=== PATIENT | male | born 1935 | race Caucasian/White ===

== ENCOUNTER 2021-08-10 14:35 | Observation (INO) ==
[2021-08-10 20:48] LABS: BASOPHILS # (AUTO) 0.1 X10^3/uL (0.0-0.1); EOSINOPHILS # (AUTO) 0.3 x10^3/uL (0.0-0.2); EOSINOPHILS % (AUTO) 5.3 % (0.9-2.9); HEMATOCRIT 26.9 % (42.0-54.0); HEMOGLOBIN 9.5 g/dL (13.5-18.0); LYMPHOCYTES # (AUTO) 1.4 X10^3/uL (1.3-2.9); LYMPHOCYTES % (AUTO) 22.8 % (21.0-51.0); MEAN CORPUSCULAR HEMOGLOBIN 32.7 pg (27.0-34.0); MEAN CORPUSCULAR HGB CONC 35.5 g/dL (33.0-35.0); MEAN CORPUSCULAR VOLUME 92.2 fL (80.0-100.0); MEAN PLATELET VOLUME 6.9 fL (7.4-11.0); MONOCYTES # (AUTO) 0.5 x10^3/uL (0.3-0.8); MONOCYTES % (AUTO) 7.5 % (0.0-13.0); NEUTROPHILS # (AUTO) 3.9 x10^3/uL (2.2-4.8); NEUTROPHILS % (AUTO) 63.4 % (42.0-75.0); RED BLOOD COUNT 2.92 X10^6/uL (4.7-6.0); RED CELL DISTRIBUTION WIDTH 14.9 % (11.6-16.5); WHITE BLOOD COUNT 6.2 X10^3/uL (3.6-10.0)
[2021-08-10 21:07] LABS: ALBUMIN 2.7 g/dL (3.4-5.0); CALCIUM 7.8 mg/dL (8.5-10.1); CARBON DIOXIDE 23.9 mmol/L (21-32); CKMB % 1.6 % (<4); COR CA(FOR HYPOALB) 8.8 mg/dL (8.5-10.1); CREATINE KINASE MB 1.4 ng/mL (0-4.0); CREATININE 2.13 mg/dL (0.70-1.30); TOTAL PROTEIN 6.1 g/dL (6.4-8.2)
[2021-08-10] MEDS: NS 1,000 ML IV 1,000 ML IV SCH (21:45)
--- NOTE | 2021-08-11 05:53 | RAD ---
HISTORYHYPOTENSION, WEAKNESS, FALLS PSH: CATARACT, GB, ORTHOSTUDYCHEST, 1 VIEWCOMPARISONNoneFINDINGSThe trachea is midline. The cardiac silhouette is unremarkable. The lungs are clear without focal infiltrate or effusion. The bony thorax is unremarkable.IMPRESSIONNo acute cardiopulmonary findings .Electronically signed by: Erik Tiwari (Aug 11, 2021 05:52:24)
[2021-08-11 06:31] LABS: BASOPHILS % (AUTO) 0.6 % (0.2-1.0); EOSINOPHILS # (AUTO) 0.3 x10^3/uL (0.0-0.2); EOSINOPHILS % (AUTO) 4.7 % (0.9-2.9); HEMATOCRIT 27.5 % (42.0-54.0); HEMOGLOBIN 9.5 g/dL (13.5-18.0); LYMPHOCYTES # (AUTO) 1.5 X10^3/uL (1.3-2.9); MEAN CORPUSCULAR HEMOGLOBIN 31.6 pg (27.0-34.0); MEAN CORPUSCULAR HGB CONC 34.5 g/dL (33.0-35.0); MEAN CORPUSCULAR VOLUME 91.5 fL (80.0-100.0); MEAN PLATELET VOLUME 7.1 fL (7.4-11.0); MONOCYTES # (AUTO) 0.6 x10^3/uL (0.3-0.8); MONOCYTES % (AUTO) 8.6 % (0.0-13.0); NEUTROPHILS # (AUTO) 4.1 x10^3/uL (2.2-4.8); NEUTROPHILS % (AUTO) 63.1 % (42.0-75.0); RED BLOOD COUNT 3.01 X10^6/uL (4.7-6.0); RED CELL DISTRIBUTION WIDTH 14.5 % (11.6-16.5); WHITE BLOOD COUNT 6.4 X10^3/uL (3.6-10.0)
[2021-08-11 06:48] LABS: ALANINE AMINOTRANSFERASE 20 Units/L (12-78); ALBUMIN 2.6 g/dL (3.4-5.0); ALKALINE PHOSPHATASE 52 Units/L (46-116); ASPARTATE AMINO TRANSFERASE 18 Units/L (15-37); BLOOD UREA NITROGEN 17 mg/dL (7-18); CARBON DIOXIDE 23.9 mmol/L (21-32); CHLORIDE 110 mmol/L (98-107); COR CA(FOR HYPOALB) 9.1 mg/dL (8.5-10.1); CREATININE 1.93 mg/dL (0.70-1.30); SODIUM 143 mmol/L (136-145); eGFR NON BLACK RACES 35 (>60)
--- NOTE | 2021-08-11 09:18 | CT ---
BRAIN W/O CONCLINICAL INDICATION: HYPOTENSION, WEAKNESSTECHNIQUE: Images were obtained through the head per standard CT protocol. Multiplanar reformatted images were generated from the CT dataset. Dose reduction techniques including Automated Exposure Control (AEC) and adjustment of mA and kV were utlized.COMPARISON:NoneFINDINGS:Diffuse patchy and confluent periventricular and subcortical hypoattenuation with associated volume loss . There is no evidence of acute infarction, intracranial hemorrhage, mass or mass effect, or abnormal extra-axial collection . The density of the larger dural venous sinuses is normal. Age-related, ex-vacuo dilatation of the ventricles and sulci . The skull base and calvarium are normal . The included paranasal sinuses and mastoid air cells are predominantly clear .IMPRESSION:1. No acute intracranial abnormality. 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
--- NOTE | 2021-08-11 09:57 | DR.H&P ---
H&P - History & Physical for Day of: H&P Date: 08/10/21 - Chief Complaint Chief Complaint: WEAKNESS, UNSTEADY GAIT, FREQUENT FALLS, CONFUSION, LOW BLOOD PRESSURE - History of Present Illness History of Present Illness: IS A 85 YEAR OLD PATIENT OF OURS. HE PRESENTED TO THE OFFICE ON 08/10 WITH COMPLAINTS OF WEAKNESS, UNSTEADY GAIT, FREQUENT FALLS, CONFUSION, AND LOW BLOOD PRESSURE. PATIENT FAMILY MEMBER REPORTS THAT SYMPTOMS HAVE BEEN PRESENT FOR THE PAST TWO WEEKS AND HAS PROGRESSIVELY GOTTEN WORSE. SHE REPORTS THAT PATIENT HAS BEEN UNABLE TO WALK WITHOUT HIS LEGS GIVING OUT FOR THE PAST DAY. WHILE IN THE OFFICE, HIS BLOOD PRESSURE WAS NOTED TO BE 92/40. EXAMINATION REVEALED MULTIPLE SCABBED WOUNDS AND SCATTERED BRUISING TO UPPER AND LOWER EXTREMITIES. WE ADMITTED PATIENT TO THE HOSPITAL FOR FURTHER EVALUATION AND TREATMENT OF HYPOTENSION, AMS, GENERALIZED WEAKNESS, FREQUENT FALLS. ON ARRIVAL TO THE HOSPITAL, HIS VITALS WERE 98.5-56-20-97%-148/66. LABS WERE OBTAINED. WBC 6.2, RBC 2.92, HGB 9.5, HCT 26.9, SODIUM 139, POTASSIUM 3.1, BUN 19, CREATININE 2.13, GLUCOSE 139, CALCIUM 7.8, TOTAL PROTEIN 6.1, ALBUMIN 2.7. EKG REVEALED: SINUS RHYTHM WITH HR 71. A BRAIN CT WAS OBTAINED AND REVEALED: 1. No acute intracranial abnormality. Chronic microangiopathic changes and ex vacuo dilatation of the ventricles and sulci. CHEST XRAY REVEALED: NO ACUTE CARDIOPULMONARY FINDINGS. HE WAS STARTED ON NORMAL SALINE AT 80 ML/HR. WE WILL REVIEW HIS HOME MEDICATIONS AND RESUME APPROPRIATE. WE WILL HAVE PHYSICAL THERAPY EVALUATE PATIENT. OTHERWISE, WE PLAN TO FOLLOW UP WITH AM LABS AND CONTINUE TO MONITOR. TIME SPENT ON CLINICAL ASSESSMENT, REVIEWING LABS AND IMAGING, DECISION MAKING, AND DOCUMENTATION GREATER THAN 75 MINUTES. - Past Medical History Past Medical History: COPD, CVA, Dyslipidemia, GERD, Hypertension, Hypothyroidism - Past Surgical History Surgical History: Cholecystectomy, Other Additional Surgical History: CATARACTS, BACK SURGERY - Family History Family Medical History: Hypertension - Social History Does patient currently use any type of tobacco product: No Have you used tobacco products in the last 12 months: No Type of Tobacco Use: None Does any household member use tobacco: No Alcohol Use: None Drug Use: None - Medications Home Medications: acetaminophen [From Darvocet-N] Allergy (Verified 01/14/18 10:39) nitroglycerin Allergy (Verified 01/14/18 10:39) propoxyphene [From Darvocet-N] Allergy (Verified 01/14/18 10:39) CONTINUE taking the following medications alprazolam 0.5 mg PO BID 08/10/21 [History] aspirin 81 mg PO DAILY 08/10/21 [History] famotidine 40 mg PO DAILY 08/10/21 [History] furosemide 20 mg PO DAILY PRN 08/10/21 [History] hydrocodone-acetaminophen 1 tab PO TID PRN 08/10/21 [History] levothyroxine 50 mcg PO DAILY 08/10/21 [History] megestrol 40 mg PO BID 08/10/21 [History] metoprolol tartrate 100 mg PO BID 08/10/21 [History] olmesartan 20 mg PO DAILY 08/10/21 [History] rosuvastatin 40 mg PO HS 08/10/21 [History] sertraline 100 mg PO BID 08/10/21 [History] - Review of Systems Constitutional: Weakness Eyes: No Symptoms Reported ENT: No Symptoms Reported Respiratory: No Symptoms Reported Cardiovascular: No Symptoms Reported Gastrointestinal: No Symptoms Reported Genitourinary: No Symptoms Reported Musculoskeletal: No Symptoms Reported Skin: Bruising Neurological: Weakness - Physical Exam Vital Signs: Temperature 98.6 F Pulse Rate [Right] 66 Respiratory Rate 18 Blood Pressure [Left Arm] 147/63 Blood Pressure 182/90 O2 Sat by Pulse Oximetry 100 Oriented: Person Eyes: Normal Ear: Normal Nose: Normal Throat: Normal Respiratory: Diminished Throughout Cardiovascular: Bradycardia : Normal Auscultation: Bowel Sounds: Normal Palpation: Normal Tenderness: Normal Skin: Wound (MULTIPLE SCABBED OVER WOUNDS ), Bruising Musculoskeletal: Instability Psychiatric: Normal Mood Description: Calm Affect: Normal Speech Pattern: Clear - Assessment/Plan (1) Dehydration Status: Acute Plan: ADMIT, NORMAL SALINE AT 80 ML/HR, PT CONSULT, RESUME HOME MEDS APPROPRIATE, MONITOR LABS (2) Hypotension Qualifiers: Hypotension type: unspecified hypotension type Qualified Code(s): I95.9 - Hypotension, unspecified Status: Acute (3) Altered mental status Qualifiers: Altered mental status type: transient alteration of awareness Qualified Code(s): R40.4 - Transient alteration of awareness Status: Acute (4) Generalized weakness Status: Acute (5) Frequent falls Status: Acute - Allergies Allergies/Adverse Reactions: Allergies Allergy/AdvReac Type Severity Reaction Status Date / Time acetaminophen Allergy Verified 01/14/18 10:39 [From Darvocet-N] nitroglycerin Allergy Verified 01/14/18 10:39 propoxyphene Allergy Verified 01/14/18 10:39 [From Darvocet-N]
[2021-08-11] MEDS ORDERED: NORCO 10/325 TAB PO PRN (09:59)
[2021-08-11] MEDS: NS 1,000 ML IV 1,000 ML IV SCH ×2 (10:35→23:23)
[2021-08-11] MEDS: ASPIRIN EC 81 MG PO SCH (10:41)
[2021-08-11] MEDS: MEGACE PO SCH ×2 (10:42→22:32)
[2021-08-11] MEDS: LOVENOX INJ 30 MG SYR SC SCH (10:42)
[2021-08-11] MEDS: PEPCID TAB 20 MG PO SCH (10:42)
[2021-08-11] MEDS: SYNTHROID 50 mcg TAB PO SCH (10:42)
[2021-08-11] MEDS: CRESTOR TAB 10 MG PO SCH (22:32)
[2021-08-11] MEDS: ZOLOFT PO SCH (22:33)
[2021-08-12] MEDS: NS 1,000 ML IV 1,000 ML IV SCH ×3 (00:52→14:20)
[2021-08-12 06:57] LABS: BASOPHILS % (AUTO) 0.4 % (0.2-1.0); EOSINOPHILS # (AUTO) 0.4 x10^3/uL (0.0-0.2); EOSINOPHILS % (AUTO) 5.2 % (0.9-2.9); HEMATOCRIT 27.7 % (42.0-54.0); HEMOGLOBIN 9.9 g/dL (13.5-18.0); LYMPHOCYTES # (AUTO) 1.6 X10^3/uL (1.3-2.9); LYMPHOCYTES % (AUTO) 22.5 % (21.0-51.0); MEAN CORPUSCULAR HEMOGLOBIN 32.9 pg (27.0-34.0); MEAN CORPUSCULAR HGB CONC 35.6 g/dL (33.0-35.0); MEAN CORPUSCULAR VOLUME 92.3 fL (80.0-100.0); MONOCYTES # (AUTO) 0.5 x10^3/uL (0.3-0.8); MONOCYTES % (AUTO) 6.9 % (0.0-13.0); NEUTROPHILS # (AUTO) 4.5 x10^3/uL (2.2-4.8); RED CELL DISTRIBUTION WIDTH 14.4 % (11.6-16.5); WHITE BLOOD COUNT 6.9 X10^3/uL (3.6-10.0)
[2021-08-12 07:36] LABS: ALANINE AMINOTRANSFERASE 19 Units/L (12-78); ALBUMIN 2.7 g/dL (3.4-5.0); ALKALINE PHOSPHATASE 55 Units/L (46-116); ASPARTATE AMINO TRANSFERASE 20 Units/L (15-37); BLOOD UREA NITROGEN 15 mg/dL (7-18); CALCIUM 7.7 mg/dL (8.5-10.1); CARBON DIOXIDE 20.9 mmol/L (21-32); CHLORIDE 110 mmol/L (98-107); COR CA(FOR HYPOALB) 8.7 mg/dL (8.5-10.1); CREATININE 1.59 mg/dL (0.70-1.30); SODIUM 140 mmol/L (136-145); TOTAL PROTEIN 6.1 g/dL (6.4-8.2); eGFR NON BLACK RACES 44 (>60)
[2021-08-12] MEDS: LOVENOX INJ 30 MG SYR SC SCH (09:28)
[2021-08-12] MEDS: ASPIRIN EC 81 MG PO SCH (09:28)
[2021-08-12] MEDS: SYNTHROID 50 mcg TAB PO SCH (09:29)
[2021-08-12] MEDS: MEGACE PO SCH ×2 (09:29→21:23)
[2021-08-12] MEDS: PEPCID TAB 20 MG PO SCH (09:29)
--- NOTE | 2021-08-12 15:49 | PCM.PROG ---
Progress Note - Progress Note for Day of Date of Exam: 08/12/21 - Subjective Subjective: IS CURRENTLY BEING TREATED FOR DEHYDRATION, HYPOTENSION, AMS, GENERALIZED WEAKNESS, AND FREQUENT FALLS. TODAY, HE IS ALERT, LYING IN BED ON MORNING ROUNDS. HE ANSWERS QUESTIONS APPROPRIATELY AND IS ABLE TO FOLLOW SIMPLE COMMANDS. STAFF REPORTS THAT HE DOES HAVE AN UNSTEADY GAIT AND REQUIRES ASSISTANCE WITH AMBULATION. ON EXAMINATION, HEART IS REGULAR IN RATE AND RHYTHM. BILATERAL LUNGS NOTED WITH DIMINISHED LUNG SOUNDS THROUGHOUT. ABDOMEN IS ROUND, SOFT, AND NON-TENDER WITH NORMAL BOWEL SOUNDS NOTED IN ALL QUADRANTS. SCATTERED BRUISING IS NOTED. HIS VITALS THIS MORNING ARE: 98.2-70-20-99%-188/77. LABS WERE OBTAINED. ABNORMAL LAB VALUES INCLUDE THE FOLLOWING: RBC 3.00, HGB 9.9, HCT 27.7, POTASSIUM 3.3, CHORIDE 110, CARBON DIOXIDE 20.9, CREATININE 1.59, CALCIUM 7.7, TOTAL PROTEIN 6.1, ALBUMIN 2.7. HE IS CURRENTLY RECEIVING NORMAL SALINE AT 80 ML/HR AND HIS HOME MEDICATIONS WERE RESUMED. PHYSICAL THERAPY IS WORKING WITH PATIENT. WE WILL CONTINUE WITH CURRENT PLAN OF CARE TODAY. OTHERWISE, WE WILL FOLLOW UP WITH AM LABS AND CONTINUE TO MONITOR. TIME SPENT ON CLINICAL SESSMENT, REVIEWING LABS AND IMAGING, DECISION MAKING, AND DOCUMENTATION WAS GREATER THAN 45 MINUTES. - Past Medical Family Social History Past Med/Fam/Surg Hx: No changes since H&P Allergies: Allergies acetaminophen [From Darvocet-N] Allergy (Verified 01/14/18 10:39) nitroglycerin Allergy (Verified 01/14/18 10:39) propoxyphene [From Darvocet-N] Allergy (Verified 01/14/18 10:39) - Review of Systems ROS: No change since H&P - Vital Signs and I&O's Vital Signs: Temperature 98.2 F Pulse Rate [Left Brachial] 76 Pulse Rate [Right] 67 Respiratory Rate 20 Blood Pressure [Left Arm] 123/58 Blood Pressure 182/90 O2 Sat by Pulse Oximetry 98 Intake and Output: Intake & Output 08/10/21 08/11/21 08/12/21 08/13/21 11:59 11:59 11:59 11:59 Intake Total 795 / 795 2540 / 2540 Output Total 300 / 300 2400 / 2400 Balance 495 / 495 140 / 140 - Physical Exam Oriented: Person Eyes: Normal Ear: Normal Nose: Normal Throat: Normal Respiratory: Generalized, Diminished Cardiovascular: Bradycardia : Normal Auscultation: Bowel Sounds: Normal Palpation: Normal Tenderness: Normal Skin: Wound (MULTIPLE SCABBED OVER WOUNDS ), Bruising Musculoskeletal: Instability Psychiatric: Normal Mood Description: Calm Affect: Normal Speech Pattern: Clear - Laboratory and Diagnostics Result Diagrams: 08/12/21 05:51 08/12/21 05:51 Labs: Laboratory WBC 6.9 X10^3/uL (3.6-10.0) 08/12/21 05:51 RBC 3.00 X10^6/uL (4.7-6.0) L 08/12/21 05:51 Hgb 9.9 g/dL (13.5-18.0) L 08/12/21 05:51 Hct 27.7 % (42.0-54.0) L 08/12/21 05:51 MCV 92.3 fL (80.0-100.0) 08/12/21 05:51 MCH 32.9 pg (27.0-34.0) 08/12/21 05:51 MCHC 35.6 g/dL (33.0-35.0) H 08/12/21 05:51 RDW 14.4 % (11.6-16.5) 08/12/21 05:51 Plt Count 249 X10^3/uL (150.0-450.0) 08/12/21 05:51 MPV 7.0 fL (7.4-11.0) L 08/12/21 05:51 Neut % (Auto) 65.0 % (42.0-75.0) 08/12/21 05:51 Lymph % (Auto) 22.5 % (21.0-51.0) 08/12/21 05:51 Dale % (Auto) 6.9 % (0.0-13.0) 08/12/21 05:51 Eos % (Auto) 5.2 % (0.9-2.9) H 08/12/21 05:51 Baso % (Auto) 0.4 % (0.2-1.0) 08/12/21 05:51 Neut # (Auto) 4.5 x10^3/uL (2.2-4.8) 08/12/21 05:51 Lymph # (Auto) 1.6 X10^3/uL (1.3-2.9) 08/12/21 05:51 Dale # (Auto) 0.5 x10^3/uL (0.3-0.8) 08/12/21 05:51 Eos # (Auto) 0.4 x10^3/uL (0.0-0.2) H 08/12/21 05:51 Baso # (Auto) 0.0 X10^3/uL (0.0-0.1) 08/12/21 05:51 Absolute Nucleated RBC 0.0 /100WBC 08/12/21 05:51 Sodium 140 mmol/L (136-145) 08/12/21 05:51 Corrected Sodium TNP 08/12/21 05:51 Potassium 3.3 mmol/L (3.5-5.1) L 08/12/21 05:51 Chloride 110 mmol/L (98-107) H 08/12/21 05:51 Carbon Dioxide 20.9 mmol/L (21-32) L 08/12/21 05:51 BUN 15 mg/dL (7-18) 08/12/21 05:51 Creatinine 1.59 mg/dL (0.70-1.30) H 08/12/21 05:51 Est GFR (MDRD) Af Amer 53 (>60) L 08/12/21 05:51 Est GFR (MDRD) Non-Af 44 (>60) L 08/12/21 05:51 Glucose 88 mg/dL (65-99) 08/12/21 05:51 Calcium 7.7 mg/dL (8.5-10.1) L 08/12/21 05:51 Corrected Calcium 8.7 mg/dL (8.5-10.1) 08/12/21 05:51 Total Bilirubin 0.30 mg/dL (0.2-1.0) 08/12/21 05:51 AST 20 Units/L (15-37) 08/12/21 05:51 ALT 19 Units/L (12-78) 08/12/21 05:51 Alkaline Phosphatase 55 Units/L (46-116) 08/12/21 05:51 Creatine Kinase 89 Units/L (39-308) 08/10/21 20:30 CK-MB (CK-2) 1.4 ng/mL (0-4.0) 08/10/21 20:30 CK/CKMB % Calc 1.6 % (<4) 08/10/21 20:30 Troponin I High Sens 12.4 ng/L (4.0-60.0) 08/10/21 20:30 Total Protein 6.1 g/dL (6.4-8.2) L 08/12/21 05:51 Albumin 2.7 g/dL (3.4-5.0) L 08/12/21 05:51 Globulin 3.4 g/dL (2.5-4.5) 08/12/21 05:51 Albumin/Globulin Ratio 0.8 Ratio (1.1-2.1) L 08/12/21 05:51 SARS CoV-2 RNA Rapid KADIE Negative (NEGATIVE) 08/10/21 15:33 - Plan (1) Dehydration Status: Acute Plan: NORMAL SALINE AT 80 ML/HR, PT CONSULT, RESUME HOME MEDS APPROPRIATE, MONITOR LABS (2) Hypotension Status: Acute Qualifiers: Hypotension type: unspecified hypotension type Qualified Code(s): I95.9 - Hypotension, unspecified (3) Altered mental status Status: Acute Qualifiers: Altered mental status type: transient alteration of awareness Qualified Code(s): R40.4 - Transient alteration of awareness (4) Generalized weakness Status: Acute (5) Frequent falls Status: Acute
[2021-08-12] MEDS: CRESTOR TAB 10 MG PO SCH (21:23)
[2021-08-12] MEDS: KLOR-CON PO PRN (21:24)
[2021-08-12] MEDS: ZOLOFT PO SCH (21:24)
[2021-08-13] MEDS: NS 1,000 ML IV 1,000 ML IV SCH ×3 (02:38→14:40)
[2021-08-13 06:47] LABS: BASOPHILS % (AUTO) 0.3 % (0.2-1.0); EOSINOPHILS # (AUTO) 0.4 x10^3/uL (0.0-0.2); EOSINOPHILS % (AUTO) 5.1 % (0.9-2.9); HEMOGLOBIN 9.5 g/dL (13.5-18.0); LYMPHOCYTES # (AUTO) 1.3 X10^3/uL (1.3-2.9); LYMPHOCYTES % (AUTO) 17.4 % (21.0-51.0); MEAN CORPUSCULAR HEMOGLOBIN 32.6 pg (27.0-34.0); MEAN CORPUSCULAR HGB CONC 35.3 g/dL (33.0-35.0); MEAN CORPUSCULAR VOLUME 92.6 fL (80.0-100.0); MONOCYTES # (AUTO) 0.4 x10^3/uL (0.3-0.8); MONOCYTES % (AUTO) 5.4 % (0.0-13.0); NEUTROPHILS # (AUTO) 5.2 x10^3/uL (2.2-4.8); NEUTROPHILS % (AUTO) 71.8 % (42.0-75.0); RED BLOOD COUNT 2.91 X10^6/uL (4.7-6.0); RED CELL DISTRIBUTION WIDTH 14.8 % (11.6-16.5); WHITE BLOOD COUNT 7.3 X10^3/uL (3.6-10.0)
[2021-08-13 07:10] LABS: ALANINE AMINOTRANSFERASE 17 Units/L (12-78); ALBUMIN 2.6 g/dL (3.4-5.0); ALKALINE PHOSPHATASE 54 Units/L (46-116); ASPARTATE AMINO TRANSFERASE 18 Units/L (15-37); BLOOD UREA NITROGEN 12 mg/dL (7-18); CALCIUM 7.6 mg/dL (8.5-10.1); CARBON DIOXIDE 19.7 mmol/L (21-32); CHLORIDE 110 mmol/L (98-107); COR CA(FOR HYPOALB) 8.7 mg/dL (8.5-10.1); COR NA(FOR HYPERGLY) 141 mmol/L (136-145); SODIUM 141 mmol/L (136-145); TOTAL PROTEIN 5.8 g/dL (6.4-8.2); eGFR NON BLACK RACES 51 (>60)
[2021-08-13] MEDS: LOVENOX INJ 30 MG SYR SC SCH (09:02)
[2021-08-13] MEDS: ASPIRIN EC 81 MG PO SCH (09:02)
[2021-08-13] MEDS: PEPCID TAB 20 MG PO SCH (09:03)
[2021-08-13] MEDS: MEGACE PO SCH ×2 (09:03→21:01)
[2021-08-13] MEDS: SYNTHROID 50 mcg TAB PO SCH (09:03)
[2021-08-13] MEDS: KLOR-CON PO PRN (09:03)
[2021-08-13] MEDS ORDERED: KLOR-CON PO PRN (09:39)
[2021-08-13] MEDS ORDERED: K-RIDER 10 MEQ/NS 100 ML 10 MEQ/100 ML BAG IV PRN (09:39)
[2021-08-13] MEDS ORDERED: POTASSIUM CHL 40 MEQ/NS 0.45% 500 ML IV PRN (09:39)
[2021-08-13] MEDS ORDERED: MICRO K EXTEN CAP 10 MEQ PO PRN (09:39)
[2021-08-13] MEDS ORDERED: K-DUR TAB 20 MEQ PO PRN (09:39)
[2021-08-13] MEDS ORDERED: POTASSIUM CHLORIDE LIQ 20 MEQ UDC PO PRN (09:39)
[2021-08-13] MEDS ORDERED: POTASSIUM CHL 60 MEQ/NS 0.45% 500 ML IV PRN (09:39)
--- NOTE | 2021-08-13 09:39 | PCM.PROG ---
Progress Note - Progress Note for Day of Date of Exam: 08/13/21 - Subjective Subjective: IS CURRENTLY BEING TREATED FOR DEHYDRATION, HYPOTENSION, AMS, GENERALIZED WEAKNESS, AND FREQUENT FALLS. TODAY, HE IS ALERT, LYING IN BED ON MORNING ROUNDS. HE ANSWERS QUESTIONS APPROPRIATELY AND IS ABLE TO FOLLOW SIMPLE COMMANDS. HE CONTINUES WITH WEAKNESS AND DIZZINESS AT TIMES. STAFF REPORTS THAT HE DOES HAVE AN UNSTEADY GAIT AND REQUIRES ASSISTANCE WITH AMBULATION. ON EXAMINATION, HEART IS REGULAR IN RATE AND RHYTHM. BILATERAL LUNGS NOTED WITH DIMINISHED LUNG SOUNDS THROUGHOUT. ABDOMEN IS ROUND, SOFT, AND NON- TENDER WITH NORMAL BOWEL SOUNDS NOTED IN ALL QUADRANTS. SCATTERED BRUISING IS NOTED. HIS VITALS THIS MORNING ARE: 98.6-72-18-98%-116/68. LABS WERE OBTAINED. ABNORMAL LAB VALUES INCLUDE THE FOLLOWING: RBC 2.91, HGB 9.5, HCT 27.0, POTASSIUM 3.3, CHLORIDE 110, CARBON DIOXIDE 19.7, CREATININE 1.40, GLUCOSE 117, CALCIUM 7.6, TOTAL PROTEIN 5.8, ALBUMIN 2.6. HE IS CURRENTLY RECEIVING NORMAL SALINE AT 80 ML/HR AND HIS HOME MEDICATIONS WERE RESUMED. PHYSICAL THERAPY IS WORKING WITH PATIENT. WE WILL CONTINUE WITH CURRENT PLAN OF CARE TODAY. OTHERWISE, WE WILL FOLLOW UP WITH AM LABS AND CONTINUE TO MONITOR. TIME SPENT ON CLINICAL ASSESSMENT, REVIEWING LABS AND IMAGING, DECISION MAKING, AND DOCUMENTATION WAS GREATER THAN 45 MINUTES. - Past Medical Family Social History Past Med/Fam/Surg Hx: No changes since H&P Allergies: Allergies acetaminophen [From Darvocet-N] Allergy (Verified 01/14/18 10:39) nitroglycerin Allergy (Verified 01/14/18 10:39) propoxyphene [From Darvocet-N] Allergy (Verified 01/14/18 10:39) - Review of Systems ROS: No change since H&P - Vital Signs and I&O's Vital Signs: Temperature 98.6 F Pulse Rate [Left Brachial] 72 Pulse Rate [Right] 67 Respiratory Rate 18 Blood Pressure [Left Arm] 116/68 Blood Pressure 182/90 O2 Sat by Pulse Oximetry 98 Intake and Output: Intake & Output 08/10/21 08/11/21 08/12/21 08/13/21 11:59 11:59 11:59 11:59 Intake Total 795 / 795 2540 / 2540 3480 / 3480 Output Total 300 / 300 2400 / 2400 2225 / 2225 Balance 495 / 495 140 / 140 1255 / 1255 - Physical Exam Oriented: Person Eyes: Normal Ear: Normal Nose: Normal Throat: Normal Respiratory: Generalized, Diminished Cardiovascular: Bradycardia : Normal Auscultation: Bowel Sounds: Normal Palpation: Normal Tenderness: Normal Skin: Wound (MULTIPLE SCABBED OVER WOUNDS ), Bruising Musculoskeletal: Instability Psychiatric: Normal Mood Description: Calm Affect: Normal Speech Pattern: Clear - Laboratory and Diagnostics Result Diagrams: 08/13/21 05:32 08/13/21 05:32 Labs: Laboratory WBC 7.3 X10^3/uL (3.6-10.0) 08/13/21 05:32 RBC 2.91 X10^6/uL (4.7-6.0) L 08/13/21 05:32 Hgb 9.5 g/dL (13.5-18.0) L 08/13/21 05:32 Hct 27.0 % (42.0-54.0) L 08/13/21 05:32 MCV 92.6 fL (80.0-100.0) 08/13/21 05:32 MCH 32.6 pg (27.0-34.0) 08/13/21 05:32 MCHC 35.3 g/dL (33.0-35.0) H 08/13/21 05:32 RDW 14.8 % (11.6-16.5) 08/13/21 05:32 Plt Count 232 X10^3/uL (150.0-450.0) 08/13/21 05:32 MPV 7.0 fL (7.4-11.0) L 08/13/21 05:32 Neut % (Auto) 71.8 % (42.0-75.0) 08/13/21 05:32 Lymph % (Auto) 17.4 % (21.0-51.0) L 08/13/21 05:32 [place] % (Auto) 5.4 % (0.0-13.0) 08/13/21 05:32 Eos % (Auto) 5.1 % (0.9-2.9) H 08/13/21 05:32 Baso % (Auto) 0.3 % (0.2-1.0) 08/13/21 05:32 Neut # (Auto) 5.2 x10^3/uL (2.2-4.8) H 08/13/21 05:32 Lymph # (Auto) 1.3 X10^3/uL (1.3-2.9) 08/13/21 05:32 [place] # (Auto) 0.4 x10^3/uL (0.3-0.8) 08/13/21 05:32 Eos # (Auto) 0.4 x10^3/uL (0.0-0.2) H 08/13/21 05:32 Baso # (Auto) 0.0 X10^3/uL (0.0-0.1) 08/13/21 05:32 Absolute Nucleated RBC 0.0 /100WBC 08/13/21 05:32 Sodium 141 mmol/L (136-145) 08/13/21 05:32 Corrected Sodium 141 mmol/L (136-145) 08/13/21 05:32 Potassium 3.3 mmol/L (3.5-5.1) L 08/13/21 05:32 Chloride 110 mmol/L (98-107) H 08/13/21 05:32 Carbon Dioxide 19.7 mmol/L (21-32) L 08/13/21 05:32 BUN 12 mg/dL (7-18) 08/13/21 05:32 Creatinine 1.40 mg/dL (0.70-1.30) H 08/13/21 05:32 Est GFR (MDRD) Af Amer > 60 (>60) 08/13/21 05:32 Est GFR (MDRD) Non-Af 51 (>60) L 08/13/21 05:32 Glucose 117 mg/dL (65-99) H 08/13/21 05:32 Calcium 7.6 mg/dL (8.5-10.1) L 08/13/21 05:32 Corrected Calcium 8.7 mg/dL (8.5-10.1) 08/13/21 05:32 Magnesium 2.1 mg/dL (1.7-2.9) 08/13/21 05:32 Total Bilirubin 0.30 mg/dL (0.2-1.0) 08/13/21 05:32 AST 18 Units/L (15-37) 08/13/21 05:32 ALT 17 Units/L (12-78) 08/13/21 05:32 Alkaline Phosphatase 54 Units/L (46-116) 08/13/21 05:32 Creatine Kinase 89 Units/L (39-308) 08/10/21 20:30 CK-MB (CK-2) 1.4 ng/mL (0-4.0) 08/10/21 20:30 CK/CKMB % Calc 1.6 % (<4) 08/10/21 20:30 Troponin I High Sens 12.4 ng/L (4.0-60.0) 08/10/21 20:30 Total Protein 5.8 g/dL (6.4-8.2) L 08/13/21 05:32 Albumin 2.6 g/dL (3.4-5.0) L 08/13/21 05:32 Globulin 3.2 g/dL (2.5-4.5) 08/13/21 05:32 Albumin/Globulin Ratio 0.8 Ratio (1.1-2.1) L 08/13/21 05:32 SARS CoV-2 RNA Rapid KADIE Negative (NEGATIVE) 08/10/21 15:33 - Plan (1) Dehydration Status: Acute Plan: NORMAL SALINE AT 80 ML/HR, PT CONSULT, RESUME HOME MEDS APPROPRIATE, MONITOR LABS (2) Hypotension Status: Acute Qualifiers: Hypotension type: unspecified hypotension type Qualified Code(s): I95.9 - Hypotension, unspecified (3) Altered mental status Status: Acute Qualifiers: Altered mental status type: transient alteration of awareness Qualified Code(s): R40.4 - Transient alteration of awareness (4) Hypokalemia Status: Acute (5) Anemia Status: Acute Qualifiers: Anemia type: unspecified type Qualified Code(s): D64.9 - Anemia, unspecified (6) Generalized weakness Status: Acute (7) Frequent falls Status: Acute
[2021-08-13] MEDS: CRESTOR TAB 10 MG PO SCH (21:00)
[2021-08-13] MEDS: ZOLOFT PO SCH (21:01)
[2021-08-14] MEDS: NS 1,000 ML IV 1,000 ML IV SCH (03:17)
[2021-08-14 06:30] LABS: BASOPHILS % (AUTO) 0.5 % (0.2-1.0); EOSINOPHILS # (AUTO) 0.5 x10^3/uL (0.0-0.2); EOSINOPHILS % (AUTO) 6.2 % (0.9-2.9); HEMATOCRIT 27.8 % (42.0-54.0); HEMOGLOBIN 9.7 g/dL (13.5-18.0); LYMPHOCYTES # (AUTO) 1.6 X10^3/uL (1.3-2.9); LYMPHOCYTES % (AUTO) 20.4 % (21.0-51.0); MEAN CORPUSCULAR HEMOGLOBIN 32.1 pg (27.0-34.0); MEAN CORPUSCULAR HGB CONC 34.8 g/dL (33.0-35.0); MEAN CORPUSCULAR VOLUME 92.4 fL (80.0-100.0); MONOCYTES # (AUTO) 0.4 x10^3/uL (0.3-0.8); MONOCYTES % (AUTO) 5.3 % (0.0-13.0); NEUTROPHILS # (AUTO) 5.4 x10^3/uL (2.2-4.8); NEUTROPHILS % (AUTO) 67.6 % (42.0-75.0); RED BLOOD COUNT 3.01 X10^6/uL (4.7-6.0); RED CELL DISTRIBUTION WIDTH 14.6 % (11.6-16.5)
[2021-08-14 06:50] LABS: ALANINE AMINOTRANSFERASE 18 Units/L (12-78); ALBUMIN 2.8 g/dL (3.4-5.0); ALKALINE PHOSPHATASE 53 Units/L (46-116); ASPARTATE AMINO TRANSFERASE 21 Units/L (15-37); BLOOD UREA NITROGEN 10 mg/dL (7-18); CARBON DIOXIDE 18.7 mmol/L (21-32); CHLORIDE 110 mmol/L (98-107); CREATININE 1.31 mg/dL (0.70-1.30); SODIUM 139 mmol/L (136-145); TOTAL PROTEIN 6.2 g/dL (6.4-8.2); eGFR NON BLACK RACES 55 (>60)
[2021-08-14] MEDS: ASPIRIN EC 81 MG PO SCH (08:56)
[2021-08-14] MEDS: MEGACE PO SCH (08:56)
[2021-08-14] MEDS: SYNTHROID 50 mcg TAB PO SCH (08:56)
[2021-08-14] MEDS: LOVENOX INJ 30 MG SYR SC SCH (08:57)
[2021-08-14] MEDS: PEPCID TAB 20 MG PO SCH (08:57)
[2021-08-14 12:24] VITALS: BP 154/67
== END 2021-08-14 13:30 | disposition home or self-care (01) ==
LOC: MED/SURG
PROVIDERS: ADMIT Internal Medicine; ATTEND Internal Medicine
DX: E87.6 Hypokalemia; K21.9 Gastro-esophageal reflux disease without esophagitis; Z20.822 Contact with and (suspected) exposure to COVID-19; D64.89 Other specified anemias; R26.81 Unsteadiness on feet; E78.2 Mixed hyperlipidemia; R29.6 Repeated falls; I95.89 Other hypotension; R53.1 Weakness; R94.31 Abnormal electrocardiogram [ECG] [EKG]; R94.4 Abnormal results of kidney function studies; E03.8 Other specified hypothyroidism; E86.0 Dehydration; R41.82 Altered mental status, unspecified

== ENCOUNTER 2021-09-11 17:10 | Observation (INO) ==
[2021-09-11 19:54] LABS: HEMOGLOBIN 9.6 g/dL (13.5-18.0); WHITE BLOOD COUNT 6.3 X10^3/uL (3.6-10.0)
[2021-09-11 19:59] LABS: BASOPHILS # (AUTO) 0.1 X10^3/uL (0.0-0.1); BASOPHILS % (AUTO) 0.8 % (0.2-1.0); EOSINOPHILS # (AUTO) 0.6 x10^3/uL (0.0-0.2); EOSINOPHILS % (AUTO) 9.3 % (0.9-2.9); HEMATOCRIT 27.7 % (42.0-54.0); LYMPHOCYTES # (AUTO) 1.2 X10^3/uL (1.3-2.9); LYMPHOCYTES % (AUTO) 19.8 % (21.0-51.0); MEAN CORPUSCULAR HEMOGLOBIN 32.7 pg (27.0-34.0); MEAN CORPUSCULAR HGB CONC 34.6 g/dL (33.0-35.0); MEAN CORPUSCULAR VOLUME 94.4 fL (80.0-100.0); MEAN PLATELET VOLUME 6.8 fL (7.4-11.0); MONOCYTES # (AUTO) 0.4 x10^3/uL (0.3-0.8); MONOCYTES % (AUTO) 5.8 % (0.0-13.0); NEUTROPHILS % (AUTO) 64.3 % (42.0-75.0); RED BLOOD COUNT 2.94 X10^6/uL (4.7-6.0); RED CELL DISTRIBUTION WIDTH 14.7 % (11.6-16.5)
[2021-09-11 20:03] LABS: ALANINE AMINOTRANSFERASE 20 Units/L (12-78); ALBUMIN 3.1 g/dL (3.4-5.0); ALKALINE PHOSPHATASE 79 Units/L (46-116); ASPARTATE AMINO TRANSFERASE 21 Units/L (15-37); BLOOD UREA NITROGEN 18 mg/dL (7-18); CALCIUM 8.1 mg/dL (8.5-10.1); CARBON DIOXIDE 21.4 mmol/L (21-32); CHLORIDE 104 mmol/L (98-107); COR CA(FOR HYPOALB) 8.8 mg/dL (8.5-10.1); CREATININE 2.07 mg/dL (0.70-1.30); SODIUM 136 mmol/L (136-145); TOTAL PROTEIN 6.8 g/dL (6.4-8.2); eGFR NON BLACK RACES 33 (>60)
[2021-09-11 20:25] LABS: CKMB % 1.1 % (<4); CREATINE KINASE MB 0.8 ng/mL (0-4.0)
[2021-09-11] MEDS: NS 1,000 ML IV 1,000 ML IV SCH (21:30)
[2021-09-12 01:00] VITALS: BMI 19.7
[2021-09-12 02:05] LABS: CKMB % 1.6 % (<4)
[2021-09-12 03:36] LABS: BILIRUBIN,URINE NEGATIVE (NEGATIVE); BLOOD/HEMOGLOBIN,URINE NEGATIVE (NEGATIVE); GLUCOSE, URINE NEGATIVE (NEGATIVE); KETONES,URINE NEGATIVE (NEGATIVE); LEUKOCYTE ESTERASE ,URINE NEGATIVE (NEGATIVE); NITRITES,URINE NEGATIVE (NEGATIVE); PROTEIN,URINE NEGATIVE (NEGATIVE); UROBILINOGEN,URINE NORMAL (NORMAL)
[2021-09-12 03:41] LABS: APPEARANCE,URINE CLEAR (CLEAR); COLOR,URINE STRAW (YELLOW)
--- NOTE | 2021-09-12 05:59 | RAD ---
HISTORYSyncopeSTUDYChest AP intewdanSEFAYYAQIL06/25/2022FINDINGSHear t size is normal. Ashly are normal. Aorta is calcified. Lung mckee are clear. No pleural effusions or pneumothoraces identified. Bony thorax is unremarkable.IMPRESSIONNo significant abnormality identifiedElectronically signed by: HANANE CAGE (Sep 12, 2021 05:59:14)
[2021-09-12 06:25] LABS: BASOPHILS % (AUTO) 0.5 % (0.2-1.0); EOSINOPHILS # (AUTO) 0.5 x10^3/uL (0.0-0.2); EOSINOPHILS % (AUTO) 7.4 % (0.9-2.9); HEMATOCRIT 25.9 % (42.0-54.0); HEMOGLOBIN 9.3 g/dL (13.5-18.0); LYMPHOCYTES # (AUTO) 1.3 X10^3/uL (1.3-2.9); LYMPHOCYTES % (AUTO) 20.2 % (21.0-51.0); MEAN CORPUSCULAR HEMOGLOBIN 33.3 pg (27.0-34.0); MEAN CORPUSCULAR HGB CONC 35.8 g/dL (33.0-35.0); MEAN PLATELET VOLUME 6.6 fL (7.4-11.0); MONOCYTES # (AUTO) 0.4 x10^3/uL (0.3-0.8); MONOCYTES % (AUTO) 6.2 % (0.0-13.0); NEUTROPHILS # (AUTO) 4.3 x10^3/uL (2.2-4.8); NEUTROPHILS % (AUTO) 65.7 % (42.0-75.0); RED BLOOD COUNT 2.79 X10^6/uL (4.7-6.0); RED CELL DISTRIBUTION WIDTH 14.6 % (11.6-16.5); WHITE BLOOD COUNT 6.6 X10^3/uL (3.6-10.0)
[2021-09-12 06:48] LABS: ALANINE AMINOTRANSFERASE 18 Units/L (12-78); ALBUMIN 2.7 g/dL (3.4-5.0); ALKALINE PHOSPHATASE 60 Units/L (46-116); ASPARTATE AMINO TRANSFERASE 19 Units/L (15-37); BLOOD UREA NITROGEN 16 mg/dL (7-18); CARBON DIOXIDE 22.8 mmol/L (21-32); CHLORIDE 108 mmol/L (98-107); CKMB % 1.6 % (<4); CREATINE KINASE 62 Units/L (39-308); CREATINE KINASE MB < 1.0 ng/mL (0-4.0); CREATININE 1.81 mg/dL (0.70-1.30); SODIUM 139 mmol/L (136-145); eGFR NON BLACK RACES 38 (>60)
--- NOTE | 2021-09-12 10:15 | CT ---
HISTORYSyncopeSTUDYCT brain without contrastCOMPARISONFebruary 2021TECHNIQUEMultiple axial images of the brain were obtained from the skull base to the vertex [without] administration of IV contrast.Dose reduction techniques including Automated Exposure Control (AEC) and adjustment of mA and kV were utlized.FINDINGS[No acute intraparenchymal hemorrhage or mass can be identified.] [No extra-axial fluid collections are seen.] [No alteration in the attenuation of the brain parenchyma can be identified to suggest acute or subacute ischemic change.] [Stable small vessel ischemic changes are noted age-appropriate atrophic changes are noted. The ventricular system is stable. [The extracranial structures are grossly unremarkable.]IMPRESSION[No acute intracranial process can be identified.]Electronically signed by: PHILLIP BLISS (Sep 12, 2021 10:14:16)
--- NOTE | 2021-09-12 11:12 | DR.H&P ---
H&P - History & Physical for Day of: H&P Date: 09/11/21 - Chief Complaint Chief Complaint: SYNCOPE, UNSTEADY GAIT, WEAKNESS - History of Present Illness History of Present Illness: IS A 85 YEAR OLD PATIENT OF OURS. PATIENT PRESENTED TO THE OFFICE WITH COMPLAINTS OF SEVERAL SYNCOPAL EPISODES OVER THE PAST 2-3 MONTHS. PATIENT REPORTS THAT HE WOULD OFTEN LOSE CONSCIOUSNESS FOR A BRIEF PERIOD. HE REPORTS THAT THIS HAS HAPPENED OFTEN 2-3 TIMES IN A DAY. HE ADMITS TO FALLING THREE TIMES ON THE DAY OF HIS VISIT. HE LIVES AT HOME ALONE AND APPARENTLY HAS NEIGHBORS AND FRIENDS THAT CHECK ON HIM OFTEN. FAMILY REPORTS THAT HE HAS AN UNSTEADY GAIT. HIS PMH INCLUDES: CAD, HYPERLIPIDEMIA, HTN, CARDIAC STENT X 2, COPD, GERD, HYPOTHYROIDISM, CHOLECYSTECTOMY, CATARACT SURGERY, BACK SURGERY. UPON EXAMINATION IN THE OFFICE, PATIENT IS NOTED TO HAVE AN ATAXIC GAIT AND GENERALIZED WEAKNESS. HE WAS ADMITTED TO THE HOSPTIAL FOR FURTHER EVALUATION AND TREATMENT OF SYNCOPE, R/O CVA. ON ARRIVAL, VITALS WERE 98.2-91-20-157/67. LABS WERE OBTAINED. WBC 6.3, RBC 2.94, HGB 9.6, HCT 27.7, SODIUM 136, POTASSIUM 3.9, BUN 18, CREATININE 2.07, CALCIUM 8.1, GLUCOSE 95, AST 21, ALT 20, ALK PHOS 79, ALBUMIN 3.1. CARDIAC ENZYMES WITHIN NORMAL LIMITS. URINALYSIS WAS OBTAINED AND IS UNREMARKABLE. COVID-19 NEGATIVE. A CHEST XRAY WAS OBTAINED AND REVEALED: NO SIGNIFICANT ABNORMALITY IDENTIFIED. EKG REVEALED: SINUS RHYTHM WITH HR 78. WE OBTAINED A BRAIN CT WITHOUT CONTRAST. IT REVEALED: No acute intraparenchymal hemorrhage or mass can be identified. No extra-axial fluid collections are seen. No alteration in the attenuation of the brain paren chyma can be identified to suggest acute or subacute ischemic change. Stable small vessel ischemic changes are noted age-appropriate atrophic changes are noted. The ventricular system is stable. The extracranial structures are grossly unremarkable. HE WAS STARTED ON NORMAL SALINE AT 75 ML/HR. WE WILL REVIEW HIS HOME MEDICATIONS AND RESUME APPROPRIATE. WE WILL HAVE PHYSICAL THERAPY EVALUATE AND WORK WITH PATIENT TODAY. OTHERWISE, WE PLAN TO FOLLOW-UP WITH AM LABS AND CONTINUE TO MONITOR. TIME SPENT ON CLINICAL ASSESSMENT, REVIEWING LABS AND IMAGING, DECISION MAKING, AND DOCUMENTATION GREATER THAN 75 MINUTES. - Past Medical History Past Medical History: COPD, Coronary Artery Disease, CVA, Dyslipidemia, GERD, Hypertension, Hypothyroidism - Past Surgical History Surgical History: Angioplasty/Stents, Cholecystectomy, Other Additional Surgical History: CATARACTS, BACK SURGERY - Family History Family Medical History: Hypertension - Social History Alcohol Use: None Drug Use: None - Medications Home Medications: acetaminophen [From Darvocet-N] Allergy (Verified 01/14/18 10:39) nitroglycerin Allergy (Verified 01/14/18 10:39) propoxyphene [From Darvocet-N] Allergy (Verified 01/14/18 10:39) CONTINUE taking the following medications metoprolol succinate 50 mg PO DAILY 09/12/21 [History] - Review of Systems Constitutional: Weakness Eyes: No Symptoms Reported ENT: No Symptoms Reported Respiratory: No Symptoms Reported Cardiovascular: Light Headedness Gastrointestinal: No Symptoms Reported Genitourinary: No Symptoms Reported Musculoskeletal: No Symptoms Reported Skin: No Symptoms Reported Neurological: Weakness - Physical Exam Vital Signs: Temperature 98.7 F Pulse Rate [Bilateral Radial] 77 Respiratory Rate 18 Blood Pressure [Right Arm] 119/56 Blood Pressure [Left Arm] 157/67 O2 Sat by Pulse Oximetry 98 Oriented: Person, Place Eyes: Normal Ear: Normal Nose: Normal Throat: Normal Respiratory: Diminished Throughout Cardiovascular: Normal : Normal Auscultation: Bowel Sounds: Normal Tenderness: Normal Skin: Bruising (SCATTERED) Musculoskeletal: Normal Psychiatric: Normal Mood Description: Calm Affect: Normal Speech Pattern: Clear - Assessment/Plan (1) Syncope Qualifiers: Syncope type: unspecified Qualified Code(s): R55 - Syncope and collapse Status: Acute Plan: ADMIT, PT/OT, NS AT 75 ML/HR, REVIEW/RESUME HOME MEDS (2) Frequent falls Status: Acute (3) Altered mental status Qualifiers: Altered mental status type: transient alteration of awareness Status: Acute (4) Generalized weakness Status: Acute - Allergies Allergies/Adverse Reactions: Allergies Allergy/AdvReac Type Severity Reaction Status Date / Time acetaminophen Allergy Verified 01/14/18 10:39 [From Darvocet-N] nitroglycerin Allergy Verified 01/14/18 10:39 propoxyphene Allergy Verified 01/14/18 10:39 [From Darvocet-N]
[2021-09-12] MEDS: NS 1,000 ML IV 1,000 ML IV SCH (12:52)
[2021-09-12] MEDS: LOVENOX INJ 30 MG SYR SC SCH (12:52)
[2021-09-12] MEDS ORDERED: NORCO 10/325 TAB PO PRN (19:41)
[2021-09-12] MEDS ORDERED: CRESTOR TAB 10 MG PO SCH (21:00)
[2021-09-12] MEDS: MEGACE PO SCH (21:54)
[2021-09-12] MEDS: XANAX PO SCH (21:56)
[2021-09-12] MEDS: ZOLOFT PO SCH (21:56)
[2021-09-13 05:34] LABS: BASOPHILS % (AUTO) 0.5 % (0.2-1.0); EOSINOPHILS # (AUTO) 0.5 x10^3/uL (0.0-0.2); EOSINOPHILS % (AUTO) 7.5 % (0.9-2.9); HEMATOCRIT 26.6 % (42.0-54.0); HEMOGLOBIN 8.8 g/dL (13.5-18.0); LYMPHOCYTES # (AUTO) 1.1 X10^3/uL (1.3-2.9); LYMPHOCYTES % (AUTO) 17.1 % (21.0-51.0); MEAN CORPUSCULAR HEMOGLOBIN 31.1 pg (27.0-34.0); MEAN CORPUSCULAR HGB CONC 32.9 g/dL (33.0-35.0); MEAN CORPUSCULAR VOLUME 94.4 fL (80.0-100.0); MEAN PLATELET VOLUME 6.8 fL (7.4-11.0); MONOCYTES # (AUTO) 0.4 x10^3/uL (0.3-0.8); MONOCYTES % (AUTO) 6.3 % (0.0-13.0); NEUTROPHILS # (AUTO) 4.2 x10^3/uL (2.2-4.8); NEUTROPHILS % (AUTO) 68.6 % (42.0-75.0); RED BLOOD COUNT 2.82 X10^6/uL (4.7-6.0); RED CELL DISTRIBUTION WIDTH 14.5 % (11.6-16.5); WHITE BLOOD COUNT 6.2 X10^3/uL (3.6-10.0)
[2021-09-13 05:47] LABS: ALANINE AMINOTRANSFERASE 17 Units/L (12-78); ALBUMIN 2.6 g/dL (3.4-5.0); ALKALINE PHOSPHATASE 66 Units/L (46-116); ASPARTATE AMINO TRANSFERASE 18 Units/L (15-37); BLOOD UREA NITROGEN 17 mg/dL (7-18); CALCIUM 8.1 mg/dL (8.5-10.1); CHLORIDE 106 mmol/L (98-107); COR CA(FOR HYPOALB) 9.2 mg/dL (8.5-10.1); CREATININE 1.74 mg/dL (0.70-1.30); SODIUM 137 mmol/L (136-145); TOTAL PROTEIN 6.1 g/dL (6.4-8.2); eGFR NON BLACK RACES 40 (>60)
[2021-09-13] MEDS ORDERED: PEPCID TAB 40 MG ONE (07:30)
[2021-09-13] MEDS ORDERED: ASPIRIN EC 81 MG PO ONE (07:30)
[2021-09-13] MEDS ORDERED: SYNTHROID 50 mcg TAB ONE (07:31)
[2021-09-13] MEDS ORDERED: TOPROL XL PO SCH (09:00)
[2021-09-13] MEDS ORDERED: BENICAR TAB 40 MG PO SCH (09:00)
[2021-09-13] MEDS ORDERED: PEPCID TAB 20 MG PO SCH (09:00)
[2021-09-13] MEDS ORDERED: ASPIRIN EC 81 MG PO SCH (09:00)
[2021-09-13] MEDS ORDERED: SYNTHROID 50 mcg TAB PO SCH (09:00)
[2021-09-13] MEDS: ZOLOFT PO SCH (10:19)
[2021-09-13] MEDS: XANAX PO SCH (10:19)
[2021-09-13] MEDS: LOVENOX INJ 30 MG SYR SC SCH (10:22)
[2021-09-13] MEDS: MEGACE PO SCH (10:30)
[2021-09-13 13:17] VITALS: BP 127/65
== END 2021-09-13 15:00 | disposition home health service (06) ==
LOC: MED/SURG
PROVIDERS: ADMIT Internal Medicine; ATTEND Internal Medicine
DX: I10 Essential (primary) hypertension; R41.82 Altered mental status, unspecified; R53.1 Weakness; R55 Syncope and collapse; R29.6 Repeated falls; I25.10 Atherosclerotic heart disease of native coronary artery without angina pectoris; R26.81 Unsteadiness on feet; E78.2 Mixed hyperlipidemia; K21.9 Gastro-esophageal reflux disease without esophagitis; E03.8 Other specified hypothyroidism; Z20.822 Contact with and (suspected) exposure to COVID-19; R94.31 Abnormal electrocardiogram [ECG] [EKG]

== ENCOUNTER 2021-12-15 16:11 | Observation (INO) ==
[2021-12-15] MEDS ORDERED: NS 1,000 ML IV 1,000 ML ONE (16:34)
[2021-12-15] MEDS: NS 1,000 ML IV 1,000 ML IV ONE (16:38)
[2021-12-15 16:48] LABS: BASOPHILS % (AUTO) 0.7 % (0.2-1.0); EOSINOPHILS # (AUTO) 0.4 x10^3/uL (0.0-0.2); EOSINOPHILS % (AUTO) 7.1 % (0.9-2.9); HEMATOCRIT 26.6 % (42.0-54.0); HEMOGLOBIN 9.4 g/dL (13.5-18.0); LYMPHOCYTES # (AUTO) 1.4 X10^3/uL (1.3-2.9); MEAN CORPUSCULAR HEMOGLOBIN 31.4 pg (27.0-34.0); MEAN CORPUSCULAR HGB CONC 35.2 g/dL (33.0-35.0); MEAN CORPUSCULAR VOLUME 89.2 fL (80.0-100.0); MEAN PLATELET VOLUME 6.8 fL (7.4-11.0); MONOCYTES # (AUTO) 0.4 x10^3/uL (0.3-0.8); MONOCYTES % (AUTO) 6.6 % (0.0-13.0); NEUTROPHILS # (AUTO) 3.7 x10^3/uL (2.2-4.8); NEUTROPHILS % (AUTO) 62.6 % (42.0-75.0); RED BLOOD COUNT 2.98 X10^6/uL (4.7-6.0); RED CELL DISTRIBUTION WIDTH 15.8 % (11.6-16.5)
[2021-12-15 17:00] LABS: ALANINE AMINOTRANSFERASE 17 Units/L (12-78); ALKALINE PHOSPHATASE 50 Units/L (46-116); ASPARTATE AMINO TRANSFERASE 19 Units/L (15-37); BLOOD UREA NITROGEN 18 mg/dL (7-18); CALCIUM 8.4 mg/dL (8.5-10.1); CARBON DIOXIDE 23.2 mmol/L (21-32); CHLORIDE 107 mmol/L (98-107); COR CA(FOR HYPOALB) 9.2 mg/dL (8.5-10.1); CREATININE 2.02 mg/dL (0.70-1.30); SODIUM 137 mmol/L (136-145); TOTAL PROTEIN 6.2 g/dL (6.4-8.2); eGFR NON BLACK RACES 34 (>60)
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
--- NOTE | 2021-12-15 18:24 | CT ---
HISTORYC/O INCREASING WEAKNESS AND DIZZINESS. PATIENT IS NOTED TO HAVE LOW B/P. PATIENT WAS RECENTLY IN [facility].STUDYBRAIN W/O [id number] axial images of the head were performed from the skull base to the vertex using standard departmental protocol. Sagittal and coronal reformatted images were performed. Dose reduction techniques including Automated Exposure Control (AEC) and adjustment of mA and kV were utilized.FINDINGSNo evidence of acute territorial infarct. No acute intracranial hemorrhage. No evidence of intracranial mass or midline shift. No hydrocephalus. No abnormal intra or extra-axial fluid collections. Chronic small vessel ischemic changes and global volume loss with commensurate ventricular dilatation. Intracranial vascular calcifications.The calvaria is intact. The bilateral mastoid air cells and visualized paranasal sinuses are well pneumatized. The bilateral orbits are unremarkable.IMPRESSIONNo acute intracranial findings.Electronically signed by: HANANE CAGE (Dec 15, 2021 18:22:42)
--- NOTE | 2021-12-15 18:50 | RAD ---
HISTORYC/O INCREASING WEAKNESS AND DIZZINESS. PATIENT IS NOTED TO HAVE LOW B/P. PATIENT WAS RECENTLY IN [facility].STUDYCHEST, 1 VIEWCOMPARISONNoneFINDINGSThe cardiomediastinal silhouette is normal in size. No acute airspace disease. No pneumothorax or effusion. The bony thorax appears intact.IMPRESSIONNo acute cardiopulmonary disease.Electronically signed by: HANANE CAGE (Dec 15, 2021 18:48:48)
[2021-12-16 00:49] VITALS: BMI 20.4
[2021-12-16] MEDS: NS 1,000 ML IV 1,000 ML IV SCH ×2 (00:58→14:12)
[2021-12-16] MEDS: XANAX PO SCH ×3 (00:59→20:39)
[2021-12-16] MEDS: ASPIRIN EC 81 MG PO SCH ×2 (00:59→09:15)
[2021-12-16] MEDS: PEPCID TAB 40 MG PO SCH ×2 (00:59→09:19)
[2021-12-16] MEDS: CRESTOR TAB 10 MG PO SCH ×2 (00:59→20:38)
[2021-12-16] MEDS: VITAMIN D3 25 mcg (1,000 UNITS) PO SCH ×2 (01:00→09:17)
[2021-12-16] MEDS: BENICAR TAB 40 MG PO SCH ×2 (01:00→09:20)
[2021-12-16 05:54] LABS: BASOPHILS # (AUTO) 0.1 X10^3/uL (0.0-0.1); BASOPHILS % (AUTO) 1.1 % (0.2-1.0); EOSINOPHILS # (AUTO) 0.5 x10^3/uL (0.0-0.2); EOSINOPHILS % (AUTO) 7.7 % (0.9-2.9); LYMPHOCYTES # (AUTO) 1.7 X10^3/uL (1.3-2.9); LYMPHOCYTES % (AUTO) 29.4 % (21.0-51.0); MEAN CORPUSCULAR HEMOGLOBIN 30.8 pg (27.0-34.0); MEAN CORPUSCULAR HGB CONC 34.5 g/dL (33.0-35.0); MEAN CORPUSCULAR VOLUME 89.2 fL (80.0-100.0); MONOCYTES # (AUTO) 0.4 x10^3/uL (0.3-0.8); MONOCYTES % (AUTO) 6.2 % (0.0-13.0); NEUTROPHILS # (AUTO) 3.3 x10^3/uL (2.2-4.8); NEUTROPHILS % (AUTO) 55.6 % (42.0-75.0); RED BLOOD COUNT 3.25 X10^6/uL (4.7-6.0); RED CELL DISTRIBUTION WIDTH 15.9 % (11.6-16.5); WHITE BLOOD COUNT 5.9 X10^3/uL (3.6-10.0)
[2021-12-16] MEDS: SYNTHROID 50 mcg TAB PO SCH (05:54)
[2021-12-16 06:04] LABS: ALANINE AMINOTRANSFERASE 18 Units/L (12-78); ALBUMIN 2.9 g/dL (3.4-5.0); ALKALINE PHOSPHATASE 50 Units/L (46-116); ASPARTATE AMINO TRANSFERASE 15 Units/L (15-37); BLOOD UREA NITROGEN 15 mg/dL (7-18); CALCIUM 8.5 mg/dL (8.5-10.1); CARBON DIOXIDE 20.7 mmol/L (21-32); CHLORIDE 112 mmol/L (98-107); COR CA(FOR HYPOALB) 9.4 mg/dL (8.5-10.1); CREATININE 1.66 mg/dL (0.70-1.30); SODIUM 141 mmol/L (136-145); TOTAL PROTEIN 6.2 g/dL (6.4-8.2); eGFR NON BLACK RACES 42 (>60)
[2021-12-16] MEDS ORDERED: PATIENT'S HOME MEDICATION (Alprazolam 0.5 mg tablet) PO SCH (09:00)
[2021-12-16] MEDS: TOPROL XL PO SCH (09:19)
[2021-12-16] MEDS: MEGACE PO SCH ×2 (09:19→20:39)
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
--- NOTE | 2021-12-16 15:46 | PCM.PROG ---
Progress Note Progress Note for Day of Date of Exam: 12/16/21 Subjective Subjective: The patient is alert and awake this morning. He is lying in bed seems to be doing okay. Seems to be in good spirits. He had no acute problems through the night. Blood pressure remained stable this morning. We will consult with the bilingual case manager once her back after the december weekend so they can start working on snf placement. Past Medical Family Social History Allergies: Allergies acetaminophen [From Darvocet-N] Allergy (Verified 01/14/18 10:39) nitroglycerin Allergy (Verified 01/14/18 10:39) Penicillins Allergy (Verified 12/15/21 16:11) propoxyphene [From Darvocet-N] Allergy (Verified 01/14/18 10:39) Review of Systems ROS: No change since H&P Vital Signs and I&O's Vital Signs: Temperature 99.5 F Pulse Rate [Left] 71 Pulse Rate 65 Respiratory Rate 18 Blood Pressure [Left Arm] 122/59 Blood Pressure [Right Arm] 129/59 Blood Pressure 148/72 O2 Sat by Pulse Oximetry 99 Intake and Output: Intake & Output 12/14/21 12/15/21 12/16/21 12/17/21 11:59 11:59 11:59 11:59 Intake Total 75 / 75 150 / 150 Output Total 725 / 725 Balance 75 / 75 -575 / -575 Physical Exam Oriented: Normal, Time, Person and Place Eyes: Normal Ear: Normal Nose: Normal Throat: Normal Respiratory: Normal Cardiovascular: Normal : Normal Auscultation: Bowel Sounds: Normal Palpation: Normal Tenderness: Normal Skin: Normal Musculoskeletal: Right, Left, Leg and Instability Psychiatric: Normal Mood Description: Calm Affect: Normal Speech Pattern: Clear and Appropriate Laboratory and Diagnostics Result Diagrams: 12/16/21 05:37 12/16/21 05:37 Labs: Laboratory WBC 5.9 X10^3/uL (3.6-10.0) 12/16/21 05:37 RBC 3.25 X10^6/uL (4.7-6.0) L 12/16/21 05:37 Hgb 10.0 g/dL (13.5-18.0) L 12/16/21 05:37 Hct 29.0 % (42.0-54.0) L 12/16/21 05:37 MCV 89.2 fL (80.0-100.0) 12/16/21 05:37 MCH 30.8 pg (27.0-34.0) 12/16/21 05:37 MCHC 34.5 g/dL (33.0-35.0) 12/16/21 05:37 RDW 15.9 % (11.6-16.5) 12/16/21 05:37 Plt Count 194 X10^3/uL (150.0-450.0) 12/16/21 05:37 MPV 7.0 fL (7.4-11.0) L 12/16/21 05:37 Neut % (Auto) 55.6 % (42.0-75.0) 12/16/21 05:37 Lymph % (Auto) 29.4 % (21.0-51.0) 12/16/21 05:37 [place] % (Auto) 6.2 % (0.0-13.0) 12/16/21 05:37 Eos % (Auto) 7.7 % (0.9-2.9) H 12/16/21 05:37 Baso % (Auto) 1.1 % (0.2-1.0) H 12/16/21 05:37 Neut # (Auto) 3.3 x10^3/uL (2.2-4.8) 12/16/21 05:37 Lymph # (Auto) 1.7 X10^3/uL (1.3-2.9) 12/16/21 05:37 [place] # (Auto) 0.4 x10^3/uL (0.3-0.8) 12/16/21 05:37 Eos # (Auto) 0.5 x10^3/uL (0.0-0.2) H 12/16/21 05:37 Baso # (Auto) 0.1 X10^3/uL (0.0-0.1) 12/16/21 05:37 Absolute Nucleated RBC 0.0 /100WBC 12/16/21 05:37 Sodium 141 mmol/L (136-145) 12/16/21 05:37 Corrected Sodium TNP 12/16/21 05:37 Potassium 3.8 mmol/L (3.5-5.1) 12/16/21 05:37 Chloride 112 mmol/L (98-107) H 12/16/21 05:37 Carbon Dioxide 20.7 mmol/L (21-32) L 12/16/21 05:37 BUN 15 mg/dL (7-18) 12/16/21 05:37 Creatinine 1.66 mg/dL (0.70-1.30) H 12/16/21 05:37 Est GFR (MDRD) Af Amer 51 (>60) L 12/16/21 05:37 Est GFR (MDRD) Non-Af 42 (>60) L 12/16/21 05:37 Glucose 86 mg/dL (65-99) 12/16/21 05:37 POC Glucose (mg/dL) 81 mg/dL (65-99) 12/16/21 12:00 Calcium 8.5 mg/dL (8.5-10.1) 12/16/21 05:37 Corrected Calcium 9.4 mg/dL (8.5-10.1) 12/16/21 05:37 Total Bilirubin 0.40 mg/dL (0.2-1.0) 12/16/21 05:37 AST 15 Units/L (15-37) 12/16/21 05:37 ALT 18 Units/L (12-78) 12/16/21 05:37 Alkaline Phosphatase 50 Units/L (46-116) 12/16/21 05:37 Total Protein 6.2 g/dL (6.4-8.2) L 12/16/21 05:37 Albumin 2.9 g/dL (3.4-5.0) L 12/16/21 05:37 Globulin 3.3 g/dL (2.5-4.5) 12/16/21 05:37 Albumin/Globulin Ratio 0.9 Ratio (1.1-2.1) L 12/16/21 05:37 SARS-CoV-2 (PCR) Negative (NEGATIVE) 12/15/21 16:43 Plan (1) Generalized weakness: Status: Acute Plan: Patient was admitted to the hospital for observation care. We will continue to monitor him closely tile layer helper are back after the weekend we will try arrange for nursing placement since he is unable to ambulate. (2) Frequent falls: Status: Acute (3) Dehydration: Status: Acute Plan: IV hydration, recheck CMP in a.m. (4) Anemia: Status: Acute Qualifiers: Anemia type: unspecified type Qualified Code(s): D64.9 - Anemia, unspecified (5) Hypertension: Status: Acute Plan: Resume home antihypertensive medications, monitor blood pressure during hospital stay. Adjust medications as needed. (6) Hypothyroidism: Status: Acute Plan: Levothyroxine 50 mcg daily. I will check a TSH of 1 has not been recently done. (7) COPD (chronic obstructive pulmonary disease): Status: Acute Plan: I will start the patient on Symbicort 160/4.5 1 puff twice daily
[2021-12-16 16:16] LABS: BILIRUBIN,URINE NEGATIVE (NEGATIVE); BLOOD/HEMOGLOBIN,URINE 2+ (NEGATIVE); GLUCOSE, URINE NEGATIVE (NEGATIVE); KETONES,URINE NEGATIVE (NEGATIVE); LEUKOCYTE ESTERASE ,URINE NEGATIVE (NEGATIVE); NITRITES,URINE NEGATIVE (NEGATIVE); PROTEIN,URINE NEGATIVE (NEGATIVE); UROBILINOGEN,URINE NORMAL (NORMAL)
[2021-12-16 16:20] LABS: APPEARANCE,URINE CLEAR (CLEAR); COLOR,URINE STRAW (YELLOW)
[2021-12-16 16:35] LABS: BACTERIA,URINE TRACE /HPF (NEGATIVE); RBC,URINE 0-2 /HPF (0-3); SQUAMOUS EPITHELIAL CELL,UR NEGATIVE /HPF (NEGATIVE)
[2021-12-16] MEDS ORDERED: PATIENT'S HOME MEDICATION (Rosuvastatin 40 mg tablet) PO SCH (21:00)
[2021-12-17] MEDS: NS 1,000 ML IV 1,000 ML IV SCH ×4 (02:21→23:40)
[2021-12-17] MEDS: SYNTHROID 50 mcg TAB PO SCH (05:39)
[2021-12-17 05:44] LABS: HEMOGLOBIN 10.2 g/dL (13.5-18.0); WHITE BLOOD COUNT 6.7 X10^3/uL (3.6-10.0)
[2021-12-17 05:48] LABS: BASOPHILS % (AUTO) 0.7 % (0.2-1.0); EOSINOPHILS # (AUTO) 0.4 x10^3/uL (0.0-0.2); EOSINOPHILS % (AUTO) 6.2 % (0.9-2.9); HEMATOCRIT 28.5 % (42.0-54.0); LYMPHOCYTES # (AUTO) 1.8 X10^3/uL (1.3-2.9); LYMPHOCYTES % (AUTO) 26.1 % (21.0-51.0); MEAN CORPUSCULAR HEMOGLOBIN 31.4 pg (27.0-34.0); MEAN CORPUSCULAR HGB CONC 35.6 g/dL (33.0-35.0); MEAN CORPUSCULAR VOLUME 88.1 fL (80.0-100.0); MEAN PLATELET VOLUME 7.1 fL (7.4-11.0); MONOCYTES # (AUTO) 0.4 x10^3/uL (0.3-0.8); MONOCYTES % (AUTO) 5.3 % (0.0-13.0); NEUTROPHILS # (AUTO) 4.1 x10^3/uL (2.2-4.8); NEUTROPHILS % (AUTO) 61.7 % (42.0-75.0); RED BLOOD COUNT 3.24 X10^6/uL (4.7-6.0); RED CELL DISTRIBUTION WIDTH 15.7 % (11.6-16.5)
[2021-12-17 06:02] LABS: ALANINE AMINOTRANSFERASE 15 Units/L (12-78); ALBUMIN 2.9 g/dL (3.4-5.0); ALKALINE PHOSPHATASE 53 Units/L (46-116); ASPARTATE AMINO TRANSFERASE 16 Units/L (15-37); BLOOD UREA NITROGEN 15 mg/dL (7-18); CALCIUM 8.5 mg/dL (8.5-10.1); CARBON DIOXIDE 21.4 mmol/L (21-32); CHLORIDE 111 mmol/L (98-107); COR CA(FOR HYPOALB) 9.4 mg/dL (8.5-10.1); CREATININE 1.64 mg/dL (0.70-1.30); SODIUM 138 mmol/L (136-145); TOTAL PROTEIN 6.2 g/dL (6.4-8.2); eGFR NON BLACK RACES 43 (>60)
[2021-12-17] MEDS: XANAX PO SCH ×2 (09:05→20:13)
[2021-12-17] MEDS: BENICAR TAB 40 MG PO SCH (09:05)
[2021-12-17] MEDS: ASPIRIN EC 81 MG PO SCH (09:05)
[2021-12-17] MEDS: VITAMIN D3 25 mcg (1,000 UNITS) PO SCH (09:05)
[2021-12-17] MEDS: PEPCID TAB 40 MG PO SCH (09:06)
[2021-12-17] MEDS: TOPROL XL PO SCH (09:06)
[2021-12-17] MEDS: MEGACE PO SCH ×2 (09:06→20:13)
--- NOTE | 2021-12-17 13:03 | PCM.PROG ---
Progress Note Progress Note for Day of Date of Exam: 12/17/21 Subjective Subjective: The patient is alert and awake this morning. He is lying in bed seems to be doing okay. Seems to be in good spirits. He had no acute problems through the night. Blood pressure is elevated this morning. He is currently on metoprolol 50 mg daily. There have been no family present since his admission. His labs this morning are within normal limits for him. Past Medical Family Social History Allergies: Allergies acetaminophen [From Darvocet-N] Allergy (Verified 01/14/18 10:39) nitroglycerin Allergy (Verified 01/14/18 10:39) Penicillins Allergy (Verified 12/15/21 16:11) propoxyphene [From Darvocet-N] Allergy (Verified 01/14/18 10:39) Review of Systems ROS: No change since H&P Vital Signs and I&O's Vital Signs: Temperature 98.4 F Pulse Rate [Left] 66 Pulse Rate 65 Respiratory Rate 18 Blood Pressure [Left Arm] 175/77 Blood Pressure [Right Arm] 129/59 Blood Pressure 148/72 O2 Sat by Pulse Oximetry 100 Intake and Output: Intake & Output 12/15/21 12/16/21 12/17/21 12/18/21 11:59 11:59 11:59 11:59 Intake Total 75 / 75 2069 / 2069 Output Total 2124 / 2124 Balance 75 / 75 -55 / -55 Physical Exam Oriented: Normal, Time, Person and Place Eyes: Normal Ear: Normal Nose: Normal Throat: Normal Respiratory: Normal Cardiovascular: Normal : Normal Auscultation: Bowel Sounds: Normal Palpation: Normal Tenderness: Normal Skin: Normal Musculoskeletal: Right, Left, Leg and Instability Psychiatric: Normal Mood Description: Calm Affect: Normal Speech Pattern: Clear and Appropriate Laboratory and Diagnostics Result Diagrams: 12/17/21 05:08 12/17/21 05:08 Labs: 12/16/21 15:48 Urine,Clean Catch Urine Culture - Preliminary Laboratory WBC 6.7 X10^3/uL (3.6-10.0) 12/17/21 05:08 RBC 3.24 X10^6/uL (4.7-6.0) L 12/17/21 05:08 Hgb 10.2 g/dL (13.5-18.0) L 12/17/21 05:08 Hct 28.5 % (42.0-54.0) L 12/17/21 05:08 MCV 88.1 fL (80.0-100.0) 12/17/21 05:08 MCH 31.4 pg (27.0-34.0) 12/17/21 05:08 MCHC 35.6 g/dL (33.0-35.0) H 12/17/21 05:08 RDW 15.7 % (11.6-16.5) 12/17/21 05:08 Plt Count 199 X10^3/uL (150.0-450.0) 12/17/21 05:08 MPV 7.1 fL (7.4-11.0) L 12/17/21 05:08 Neut % (Auto) 61.7 % (42.0-75.0) 12/17/21 05:08 Lymph % (Auto) 26.1 % (21.0-51.0) 12/17/21 05:08 [place] % (Auto) 5.3 % (0.0-13.0) 12/17/21 05:08 Eos % (Auto) 6.2 % (0.9-2.9) H 12/17/21 05:08 Baso % (Auto) 0.7 % (0.2-1.0) 12/17/21 05:08 Neut # (Auto) 4.1 x10^3/uL (2.2-4.8) 12/17/21 05:08 Lymph # (Auto) 1.8 X10^3/uL (1.3-2.9) 12/17/21 05:08 [place] # (Auto) 0.4 x10^3/uL (0.3-0.8) 12/17/21 05:08 Eos # (Auto) 0.4 x10^3/uL (0.0-0.2) H 12/17/21 05:08 Baso # (Auto) 0.0 X10^3/uL (0.0-0.1) 12/17/21 05:08 Absolute Nucleated RBC 0.0 /100WBC 12/17/21 05:08 Sodium 138 mmol/L (136-145) 12/17/21 05:08 Corrected Sodium TNP 12/17/21 05:08 Potassium 3.9 mmol/L (3.5-5.1) 12/17/21 05:08 Chloride 111 mmol/L (98-107) H 12/17/21 05:08 Carbon Dioxide 21.4 mmol/L (21-32) 12/17/21 05:08 BUN 15 mg/dL (7-18) 12/17/21 05:08 Creatinine 1.64 mg/dL (0.70-1.30) H 12/17/21 05:08 Est GFR (MDRD) Af Amer 52 (>60) L 12/17/21 05:08 Est GFR (MDRD) Non-Af 43 (>60) L 12/17/21 05:08 Glucose 95 mg/dL (65-99) 12/17/21 05:08 POC Glucose (mg/dL) 81 mg/dL (65-99) 12/16/21 12:00 Calcium 8.5 mg/dL (8.5-10.1) 12/17/21 05:08 Corrected Calcium 9.4 mg/dL (8.5-10.1) 12/17/21 05:08 Total Bilirubin 0.20 mg/dL (0.2-1.0) 12/17/21 05:08 AST 16 Units/L (15-37) 12/17/21 05:08 ALT 15 Units/L (12-78) 12/17/21 05:08 Alkaline Phosphatase 53 Units/L (46-116) 12/17/21 05:08 Total Protein 6.2 g/dL (6.4-8.2) L 12/17/21 05:08 Albumin 2.9 g/dL (3.4-5.0) L 12/17/21 05:08 Globulin 3.3 g/dL (2.5-4.5) 12/17/21 05:08 Albumin/Globulin Ratio 0.9 Ratio (1.1-2.1) L 12/17/21 05:08 TSH 3rd Generation 2.000 uIU/mL (0.358-3.74) 12/16/21 05:37 Specimen Type Clean catch urine 12/16/21 15:48 Urine Color Straw (YELLOW) 12/16/21 15:48 Urine Appearance Clear (CLEAR) 12/16/21 15:48 Urine pH 6.0 (5.0 - 8.0) 12/16/21 15:48 Ur Specific [place] 1.015 (1.000-1.030) 12/16/21 15:48 Urine Protein Negative (NEGATIVE) 12/16/21 15:48 Urine Glucose (UA) Negative (NEGATIVE) 12/16/21 15:48 Urine Ketones Negative (NEGATIVE) 12/16/21 15:48 Urine Blood 2+ (NEGATIVE) 12/16/21 15:48 Urine Nitrite Negative (NEGATIVE) 12/16/21 15:48 Urine Bilirubin Negative (NEGATIVE) 12/16/21 15:48 Urine Urobilinogen Normal (NORMAL) 12/16/21 15:48 Ur Leukocyte Esterase Negative (NEGATIVE) 12/16/21 15:48 Urine RBC 0-2 /HPF (0-3) 12/16/21 15:48 Urine WBC None seen /HPF (0-5) 12/16/21 15:48 Ur Squamous Epith Cells Negative /HPF (NEGATIVE) 12/16/21 15:48 Urine Bacteria Trace /HPF (NEGATIVE) 12/16/21 15:48 Ur Culture Indicated? No/not indicated 12/16/21 15:48 SARS-CoV-2 (PCR) Negative (NEGATIVE) 12/15/21 16:43 Plan (1) Generalized weakness: Status: Acute Plan: Patient was admitted to the hospital for observation care. We will continue to monitor him closely health professor are back after the weekend we will try arrange for nursing placement since he is unable to ambulate. (2) Frequent falls: Status: Acute (3) Dehydration: Status: Acute Plan: IV hydration, recheck CMP in a.m. (4) Anemia: Status: Acute Qualifiers: Anemia type: unspecified type Qualified Code(s): D64.9 - Anemia, unspecified (5) Hypertension: Status: Acute Narrative Support Text: Blood pressure is uncontrolled at this time. Plan: Resume home antihypertensive medications, monitor blood pressure during hospital stay. Adjust medications as needed. I will add amlodipine 5 mg daily to see if this helps with his hypertension. (6) Hypothyroidism: Status: Acute Plan: Levothyroxine 50 mcg daily. I will check a TSH of 1 has not been recently done. (7) COPD (chronic obstructive pulmonary disease): Status: Acute Plan: I was resumed start the patient on Symbicort but it was not in the order list for the meds daily. He is satting well at this time his lungs are clear so I will hold off on that at this time
[2021-12-17] MEDS: NORVASC TAB 5 MG PO SCH (14:02)
[2021-12-17] MEDS: NORCO 10/325 TAB PO PRN (20:13)
[2021-12-17] MEDS: CRESTOR TAB 10 MG PO SCH (20:13)
[2021-12-18] MEDS: NS 1,000 ML IV 1,000 ML IV SCH ×2 (04:42→21:12)
[2021-12-18] MEDS: SYNTHROID 50 mcg TAB PO SCH (05:30)
[2021-12-18 06:14] LABS: BLOOD UREA NITROGEN 11 mg/dL (7-18); CALCIUM 8.5 mg/dL (8.5-10.1); CARBON DIOXIDE 20.2 mmol/L (21-32); CHLORIDE 112 mmol/L (98-107); CREATININE 1.51 mg/dL (0.70-1.30); SODIUM 140 mmol/L (136-145); eGFR NON BLACK RACES 47 (>60)
[2021-12-18 06:17] LABS: BASOPHILS % (AUTO) 0.7 % (0.2-1.0); EOSINOPHILS # (AUTO) 0.4 x10^3/uL (0.0-0.2); EOSINOPHILS % (AUTO) 7.6 % (0.9-2.9); HEMATOCRIT 28.5 % (42.0-54.0); LYMPHOCYTES # (AUTO) 1.6 X10^3/uL (1.3-2.9); LYMPHOCYTES % (AUTO) 30.5 % (21.0-51.0); MEAN CORPUSCULAR HEMOGLOBIN 31.1 pg (27.0-34.0); MEAN CORPUSCULAR HGB CONC 35.1 g/dL (33.0-35.0); MEAN CORPUSCULAR VOLUME 88.5 fL (80.0-100.0); MEAN PLATELET VOLUME 7.1 fL (7.4-11.0); MONOCYTES # (AUTO) 0.4 x10^3/uL (0.3-0.8); MONOCYTES % (AUTO) 7.1 % (0.0-13.0); NEUTROPHILS # (AUTO) 2.9 x10^3/uL (2.2-4.8); NEUTROPHILS % (AUTO) 54.1 % (42.0-75.0); RED BLOOD COUNT 3.22 X10^6/uL (4.7-6.0); RED CELL DISTRIBUTION WIDTH 15.8 % (11.6-16.5); WHITE BLOOD COUNT 5.3 X10^3/uL (3.6-10.0)
[2021-12-18 06:46] LABS: ALANINE AMINOTRANSFERASE 14 Units/L (12-78); ALBUMIN 2.6 g/dL (3.4-5.0); ALKALINE PHOSPHATASE 45 Units/L (46-116); ASPARTATE AMINO TRANSFERASE 15 Units/L (15-37); COR CA(FOR HYPOALB) 9.6 mg/dL (8.5-10.1); TOTAL PROTEIN 5.8 g/dL (6.4-8.2)
[2021-12-18] MEDS: ASPIRIN EC 81 MG PO SCH (09:18)
[2021-12-18] MEDS: XANAX PO SCH ×2 (09:18→21:13)
[2021-12-18] MEDS: VITAMIN D3 25 mcg (1,000 UNITS) PO SCH (09:19)
[2021-12-18] MEDS: PEPCID TAB 40 MG PO SCH (09:20)
[2021-12-18] MEDS: TOPROL XL PO SCH (09:20)
[2021-12-18] MEDS: NORVASC TAB 5 MG PO SCH (09:20)
[2021-12-18] MEDS: BENICAR TAB 40 MG PO SCH (09:21)
[2021-12-18] MEDS: MEGACE PO SCH ×2 (09:22→21:12)
[2021-12-18] MEDS: NORCO 10/325 TAB PO PRN (15:47)
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
[2021-12-18] MEDS: CRESTOR TAB 10 MG PO SCH (21:12)
[2021-12-19] MEDS: SYNTHROID 50 mcg TAB PO SCH (05:47)
[2021-12-19 06:16] LABS: BASOPHILS # (AUTO) 0.1 X10^3/uL (0.0-0.1); BASOPHILS % (AUTO) 0.9 % (0.2-1.0); EOSINOPHILS # (AUTO) 0.4 x10^3/uL (0.0-0.2); EOSINOPHILS % (AUTO) 7.4 % (0.9-2.9); HEMATOCRIT 27.7 % (42.0-54.0); LYMPHOCYTES # (AUTO) 1.7 X10^3/uL (1.3-2.9); LYMPHOCYTES % (AUTO) 29.3 % (21.0-51.0); MEAN CORPUSCULAR HEMOGLOBIN 31.3 pg (27.0-34.0); MEAN CORPUSCULAR VOLUME 87.1 fL (80.0-100.0); MEAN PLATELET VOLUME 6.9 fL (7.4-11.0); MONOCYTES # (AUTO) 0.4 x10^3/uL (0.3-0.8); MONOCYTES % (AUTO) 6.6 % (0.0-13.0); NEUTROPHILS # (AUTO) 3.2 x10^3/uL (2.2-4.8); NEUTROPHILS % (AUTO) 55.8 % (42.0-75.0); RED BLOOD COUNT 3.18 X10^6/uL (4.7-6.0); RED CELL DISTRIBUTION WIDTH 15.8 % (11.6-16.5); WHITE BLOOD COUNT 5.8 X10^3/uL (3.6-10.0)
[2021-12-19 06:36] LABS: ALANINE AMINOTRANSFERASE 15 Units/L (12-78); ALBUMIN 2.8 g/dL (3.4-5.0); ALKALINE PHOSPHATASE 46 Units/L (46-116); ASPARTATE AMINO TRANSFERASE 15 Units/L (15-37); BLOOD UREA NITROGEN 13 mg/dL (7-18); CALCIUM 8.2 mg/dL (8.5-10.1); CARBON DIOXIDE 21.3 mmol/L (21-32); CHLORIDE 111 mmol/L (98-107); COR CA(FOR HYPOALB) 9.2 mg/dL (8.5-10.1); CREATININE 1.48 mg/dL (0.70-1.30); SODIUM 141 mmol/L (136-145); TOTAL PROTEIN 5.8 g/dL (6.4-8.2); eGFR NON BLACK RACES 48 (>60)
[2021-12-19] MEDS: BENICAR TAB 40 MG PO SCH (08:00)
[2021-12-19] MEDS: NORVASC TAB 5 MG PO SCH (08:01)
[2021-12-19] MEDS: PEPCID TAB 40 MG PO SCH (08:01)
[2021-12-19] MEDS: MEGACE PO SCH ×2 (08:01→20:25)
[2021-12-19] MEDS: VITAMIN D3 25 mcg (1,000 UNITS) PO SCH (08:01)
[2021-12-19] MEDS: TOPROL XL PO SCH (08:01)
[2021-12-19] MEDS: ASPIRIN EC 81 MG PO SCH (08:01)
[2021-12-19] MEDS: XANAX PO SCH ×2 (08:01→20:24)
[2021-12-19] MEDS: LOVENOX INJ 40 MG SYR SC SCH (10:46)
--- NOTE | 2021-12-19 20:21 | PCM.PROG ---
Progress Note Progress Note for Day of Date of Exam: 12/19/21 Subjective Subjective: IS A 85 YEAR OLD PATIENT OF . HE WAS ADMITTED OBSERVATION STATUS ON 12/15/21 FOR TREATMENT OF GENERALIZED WEAKNESS, AMS, FREQUENT FALLS, AND DEHYDRATION. HIS PMH INCLUDES ANEMIA, HTN, HYPOTHYROIDISM, AND COPD. HE HAS HAD NO ACUTE PROBLEMS OVERNIGHT. APPARENTLY, HIS FAMILY REPORTS THAT HEY ARE NO LONGER ABLE TO CARE FOR PATIENT AT HOME IN HIS CURRENT CONDITION. NURSES REPORT THAT PATIENT IS ABLE TO AMBULATE IN THE ROOM WITH THE USE OF HIS WALKER, WITH ONLY MINIMAL ASSISTANCE. ON EXAMINATION, HEART IS REGULAR IN RATE AND RHYTHM. BILATERAL LUNGS CLEAR TO AUSCULTATION. ABDOMEN IS ROUND, SOFT, AND NON-TENDER WITH NORMAL BOWEL SOUNDS NOTED IN ALL QUADRANTS. NO UPPER OR LOWER EXTREMITY EDEMA IS NOTED. HIS VITALS THIS MORNING ARE: 98.4-86-18-97%-178/74. LABS WERE OBTAINED. ABNORMAL LAB VALUES INCLUDE THE FOLLOWING: RBC 3.18, HGB 10.0, HCT 27.7, CHLORIDE 111, CREATININE 1.48, CALCIUM 8.2, TOTAL PROTEIN 5.8, ALBUMIN 2.8. A URINE CULTURE IS PENDING. HE IS CURRENTLY RECEIVING LOVENOX 40MG SC DAILY, XANAX 0.5MG PO BID, NORVASC 5MG PO DAILY, ECOTRIN 81MG PO DAILY, VITAMIN D3 1000 UNITS PO DAILY, PEPCID 40MG PO DAILY, NORCO 10/325MG PO TID PRN, LEVOTHYROXINE 50MCG PO DAILY, MEGACE 40MG PO BID, TOPROL 50MG PO DAILY, BENICAR 10MG PO DAILY, CRESTOR 40MG PO HS. WE WILL CONTINUE WITH CURRENT PLAN OF CARE TODAY. PHYSICAL THERAPY WILL EVALUATE PATIENT. WE WILL ATTEMPT TO REACH OUT TO ADDITIONAL FAMILY MEMBERS TODAY TO COME UP WITH A PLAN FOR DISCHARGE. OTHERWISE, WE WILL FOLLOW-UP WITH AM LABS AND CONTINUE TO MONITOR. TIME SPENT ON CLINICAL ASSESSMENT, REVIEWING LABS AND IMAGING, DECISION MAKING, AND DOCUMENTATION GREATER THAN 45 MINUTES. Past Medical Family Social History Allergies: Allergies nitroglycerin Allergy (Verified 01/14/18 10:39) Penicillins Allergy (Verified 12/15/21 16:11) propoxyphene [From Darvocet-N] Allergy (Verified 01/14/18 10:39) Review of Systems ROS: No change since H&P Vital Signs and I&O's Vital Signs: Temperature 98.3 F Pulse Rate [Right] 73 Pulse Rate [Left] 66 Pulse Rate 65 Respiratory Rate 18 Blood Pressure [Left Arm] 116/57 Blood Pressure [Right Arm] 110/56 Blood Pressure 148/72 O2 Sat by Pulse Oximetry 98 Intake and Output: Intake & Output 12/17/21 12/18/21 12/19/21 12/20/21 11:59 11:59 11:59 11:59 Intake Total 2069 3056 / 3056 1580 / 1580 120 / 120 Output Total 2124 400 / 400 1350 / 1350 Balance -55 / -55 2656 / 2656 230 / 230 120 / 120 Physical Exam Oriented: Normal, Time, Person and Place Eyes: Normal Ear: Normal Nose: Normal Throat: Normal Respiratory: Normal Cardiovascular: Normal : Normal Auscultation: Bowel Sounds: Normal Tenderness: Normal Skin: Normal Musculoskeletal: Right, Left, Leg and Instability Psychiatric: Normal Mood Description: Calm Affect: Normal Speech Pattern: Clear and Appropriate Laboratory and Diagnostics Result Diagrams: 12/19/21 05:45 12/19/21 05:45 Labs: 12/16/21 15:48 Urine,Clean Catch Urine Culture - Final Laboratory WBC 5.8 X10^3/uL (3.6-10.0) 12/19/21 05:45 RBC 3.18 X10^6/uL (4.7-6.0) L 12/19/21 05:45 Hgb 10.0 g/dL (13.5-18.0) L 12/19/21 05:45 Hct 27.7 % (42.0-54.0) L 12/19/21 05:45 MCV 87.1 fL (80.0-100.0) 12/19/21 05:45 MCH 31.3 pg (27.0-34.0) 12/19/21 05:45 MCHC 36.0 g/dL (33.0-35.0) H 12/19/21 05:45 RDW 15.8 % (11.6-16.5) 12/19/21 05:45 Plt Count 162 X10^3/uL (150.0-450.0) 12/19/21 05:45 MPV 6.9 fL (7.4-11.0) L 12/19/21 05:45 Neut % (Auto) 55.8 % (42.0-75.0) 12/19/21 05:45 Lymph % (Auto) 29.3 % (21.0-51.0) 12/19/21 05:45 [place] % (Auto) 6.6 % (0.0-13.0) 12/19/21 05:45 Eos % (Auto) 7.4 % (0.9-2.9) H 12/19/21 05:45 Baso % (Auto) 0.9 % (0.2-1.0) 12/19/21 05:45 Neut # (Auto) 3.2 x10^3/uL (2.2-4.8) 12/19/21 05:45 Lymph # (Auto) 1.7 X10^3/uL (1.3-2.9) 12/19/21 05:45 [place] # (Auto) 0.4 x10^3/uL (0.3-0.8) 12/19/21 05:45 Eos # (Auto) 0.4 x10^3/uL (0.0-0.2) H 12/19/21 05:45 Baso # (Auto) 0.1 X10^3/uL (0.0-0.1) 12/19/21 05:45 Absolute Nucleated RBC 0.1 /100WBC 12/19/21 05:45 Sodium 141 mmol/L (136-145) 12/19/21 05:45 Corrected Sodium TNP 12/19/21 05:45 Potassium 3.9 mmol/L (3.5-5.1) 12/19/21 05:45 Chloride 111 mmol/L (98-107) H 12/19/21 05:45 Carbon Dioxide 21.3 mmol/L (21-32) 12/19/21 05:45 BUN 13 mg/dL (7-18) 12/19/21 05:45 Creatinine 1.48 mg/dL (0.70-1.30) H 12/19/21 05:45 Est GFR (MDRD) Af Amer 58 (>60) L 12/19/21 05:45 Est GFR (MDRD) Non-Af 48 (>60) L 12/19/21 05:45 Glucose 93 mg/dL (65-99) 12/19/21 05:45 POC Glucose (mg/dL) 81 mg/dL (65-99) 12/16/21 12:00 Calcium 8.2 mg/dL (8.5-10.1) L 12/19/21 05:45 Corrected Calcium 9.2 mg/dL (8.5-10.1) 12/19/21 05:45 Total Bilirubin 0.20 mg/dL (0.2-1.0) 12/19/21 05:45 AST 15 Units/L (15-37) 12/19/21 05:45 ALT 15 Units/L (12-78) 12/19/21 05:45 Alkaline Phosphatase 46 Units/L (46-116) 12/19/21 05:45 Total Protein 5.8 g/dL (6.4-8.2) L 12/19/21 05:45 Albumin 2.8 g/dL (3.4-5.0) L 12/19/21 05:45 Globulin 3.0 g/dL (2.5-4.5) 12/19/21 05:45 Albumin/Globulin Ratio 0.9 Ratio (1.1-2.1) L 12/19/21 05:45 TSH 3rd Generation 2.000 uIU/mL (0.358-3.74) 12/16/21 05:37 Specimen Type Clean catch urine 12/16/21 15:48 Urine Color Straw (YELLOW) 12/16/21 15:48 Urine Appearance Clear (CLEAR) 12/16/21 15:48 Urine pH 6.0 (5.0 - 8.0) 12/16/21 15:48 Ur Specific [place] 1.015 (1.000-1.030) 12/16/21 15:48 Urine Protein Negative (NEGATIVE) 12/16/21 15:48 Urine Glucose (UA) Negative (NEGATIVE) 12/16/21 15:48 Urine Ketones Negative (NEGATIVE) 12/16/21 15:48 Urine Blood 2+ (NEGATIVE) 12/16/21 15:48 Urine Nitrite Negative (NEGATIVE) 12/16/21 15:48 Urine Bilirubin Negative (NEGATIVE) 12/16/21 15:48 Urine Urobilinogen Normal (NORMAL) 12/16/21 15:48 Ur Leukocyte Esterase Negative (NEGATIVE) 12/16/21 15:48 Urine RBC 0-2 /HPF (0-3) 12/16/21 15:48 Urine WBC None seen /HPF (0-5) 12/16/21 15:48 Ur Squamous Epith Cells Negative /HPF (NEGATIVE) 12/16/21 15:48 Urine Bacteria Trace /HPF (NEGATIVE) 12/16/21 15:48 Ur Culture Indicated? No/not indicated 12/16/21 15:48 SARS-CoV-2 (PCR) Negative (NEGATIVE) 12/15/21 16:43 Plan (1) Generalized weakness: Status: Acute Plan: DISCUSS DISCHARGE PLAN WITH FAMILY MEMEBERS. PATIENT MAY REQUIRE CARE HOME PLACEMENT (2) Frequent falls: Status: Acute (3) Dehydration: Status: Acute (4) Anemia: Status: Acute Qualifiers: Anemia type: unspecified type Qualified Code(s): D64.9 - Anemia, unspecified (5) Hypertension: Status: Acute Plan: Resume home antihypertensive medications, monitor blood pressure during hospital stay. Adjust medications as needed. added amlodipine 5 mg daily to see if this helps with his hypertension. (6) Hypothyroidism: Status: Acute Plan: Levothyroxine 50 mcg daily. I will check a TSH of 1 has not been recently done. (7) COPD (chronic obstructive pulmonary disease): Status: Acute
[2021-12-19] MEDS: CRESTOR TAB 10 MG PO SCH (20:24)
[2021-12-20] MEDS: SYNTHROID 50 mcg TAB PO SCH (05:54)
[2021-12-20 05:56] LABS: BASOPHILS # (AUTO) 0.1 X10^3/uL (0.0-0.1); EOSINOPHILS # (AUTO) 0.4 x10^3/uL (0.0-0.2); EOSINOPHILS % (AUTO) 6.4 % (0.9-2.9); HEMATOCRIT 28.6 % (42.0-54.0); HEMOGLOBIN 10.1 g/dL (13.5-18.0); LYMPHOCYTES # (AUTO) 1.7 X10^3/uL (1.3-2.9); LYMPHOCYTES % (AUTO) 28.5 % (21.0-51.0); MEAN CORPUSCULAR HEMOGLOBIN 31.1 pg (27.0-34.0); MEAN CORPUSCULAR HGB CONC 35.3 g/dL (33.0-35.0); MEAN CORPUSCULAR VOLUME 88.2 fL (80.0-100.0); MEAN PLATELET VOLUME 7.2 fL (7.4-11.0); MONOCYTES # (AUTO) 0.3 x10^3/uL (0.3-0.8); NEUTROPHILS # (AUTO) 3.5 x10^3/uL (2.2-4.8); NEUTROPHILS % (AUTO) 59.1 % (42.0-75.0); RED BLOOD COUNT 3.24 X10^6/uL (4.7-6.0); RED CELL DISTRIBUTION WIDTH 15.8 % (11.6-16.5); WHITE BLOOD COUNT 5.9 X10^3/uL (3.6-10.0)
[2021-12-20 06:07] LABS: ALANINE AMINOTRANSFERASE 13 Units/L (12-78); ALKALINE PHOSPHATASE 48 Units/L (46-116); ASPARTATE AMINO TRANSFERASE 16 Units/L (15-37); BLOOD UREA NITROGEN 13 mg/dL (7-18); CALCIUM 8.7 mg/dL (8.5-10.1); CARBON DIOXIDE 19.4 mmol/L (21-32); CHLORIDE 111 mmol/L (98-107); COR CA(FOR HYPOALB) 9.5 mg/dL (8.5-10.1); CREATININE 1.66 mg/dL (0.70-1.30); SODIUM 143 mmol/L (136-145); TOTAL PROTEIN 6.4 g/dL (6.4-8.2); eGFR NON BLACK RACES 42 (>60)
[2021-12-20 08:04] VITALS: BP 134/60
[2021-12-20] MEDS: TOPROL XL PO SCH (08:04)
[2021-12-20] MEDS: MEGACE PO SCH (08:04)
[2021-12-20] MEDS: ASPIRIN EC 81 MG PO SCH (08:05)
[2021-12-20] MEDS: XANAX PO SCH (08:05)
[2021-12-20] MEDS: VITAMIN D3 25 mcg (1,000 UNITS) PO SCH (08:05)
[2021-12-20] MEDS: NORVASC TAB 5 MG PO SCH (08:05)
[2021-12-20] MEDS: BENICAR TAB 40 MG PO SCH (08:05)
[2021-12-20] MEDS: LOVENOX INJ 40 MG SYR SC SCH (08:11)
[2021-12-20] MEDS ORDERED: PEPCID TAB 20 MG PO SCH (09:00)
== END 2021-12-20 11:50 | disposition home health service (06) ==
LOC: ER 16:11 → MED/SURG 16:11
PROVIDERS: ADMIT Family Medicine; ATTEND Internal Medicine
DX: I10 Essential (primary) hypertension; J44.9 Chronic obstructive pulmonary disease, unspecified; K21.9 Gastro-esophageal reflux disease without esophagitis; R94.4 Abnormal results of kidney function studies; R06.02 Shortness of breath; Z20.822 Contact with and (suspected) exposure to COVID-19; E86.0 Dehydration; R94.31 Abnormal electrocardiogram [ECG] [EKG]; R42 Dizziness and giddiness; R53.1 Weakness; R41.82 Altered mental status, unspecified; Z86.73 Personal history of transient ischemic attack (TIA), and cerebral infarction without residual deficits; D64.89 Other specified anemias; I95.89 Other hypotension; E03.8 Other specified hypothyroidism; R29.6 Repeated falls

== ENCOUNTER 2022-09-21 15:06 | Inpatient (IN) ==
--- NOTE | 2022-09-21 17:07 | DR.ABDMALE ---
HPI Time seen Time Seen by Provider: 09/21/22 16:55 PCP Primary Care Physician: PAN Complaint Chief Complaint Doctors Comments: ABDOMINAL PAIN PERIUMBILICAL THAT STARTED 2 DAYS AGO. IT HURTS MORE WHEN HE IS RIDING IN VEHICLES AND HITS A BUMP. Chief Complaint:: ABD PAIN LOWER RIGHT AND LEFT AND AROUND NAVEL. GRADUAL ONSET 1-2 DAYS AGO. WORSE WITH ANY MOVEMENT OR WHEN IN AUTO AND HITS BUMPS COVID-19 Coronavirus risk:travel/contact w/high risk person: No Has patient experienced Coronavirus symptoms: No Mode of arrival Mode of Arrival: Wheelchair Timing Onset of Chief Complaint: 09/19/22 PMH PMH Past Medical History: Yes Past Medical History: Anxiety, Arthritis, COPD, Depression, Dyslipidemia, GERD, Hypertension and Hypothyroidism Past Surgical History: Yes Surgical History: Cholecystectomy and Other Past Surgical History Comment: NIKI X3 Family History History of Family Medical Conditions: Yes Family Medical History: Hypertension Social History Type of Tobacco Use: Smokeless Alcohol Use: None Do you use any recreational Drugs:: No Lives With: Alone Lives Where: Home Travel Risk Coronavirus risk:travel/contact w/high risk person: No Has patient experienced Coronavirus symptoms: No Infectious screening In the last 2 months have you had wt loss of >10#?: YES Have you had fever, night sweats or hemotysis?: No Have you traveled outside the country in the last 6 months?: No Isolation: Standard ROS Review of Systems Constitutional: Other (ABDOMINAL PAIN WITH CONSTIPATION AND DISTENSION) Eyes: No Symptoms Reported ENTM: No Symptoms Reported Respiratoy: No Symptoms Reported Cardiovascular: No Symptoms Reported Gastrointestinal/Abdominal: Abdominal Pain and Other Genitourinary: No Symptoms Reported Neurological: No Symptoms Reported Musculoskeletal: No Symptoms Reported Integumentary: No Symptoms Reported Hematologic/Lymphatic: No Symptoms Reported Psychiatric: No Symptoms Reported PE Vital Signs Vital Signs: Temp Pulse Resp BP BP Pulse Ox O2 Del Method 09/21/22 19:00 98 H 22 09/21/22 19:00 140/63 09/21/22 18:45 102 H 24 09/21/22 18:35 164/74 09/21/22 18:35 100 H 27 H 99 09/21/22 18:30 98 H 24 98 09/21/22 18:15 100 H 25 H 98 09/21/22 18:00 98 H 24 97 09/21/22 17:45 99 H 25 H 100 09/21/22 17:30 106 H 33 H 09/21/22 17:15 96 H 25 H 97 09/21/22 17:00 96 H 25 H 09/21/22 16:45 96 H 22 99 09/21/22 16:30 97 H 25 H 99 09/21/22 16:30 123/57 09/21/22 16:15 97 H 24 99 09/21/22 16:00 97 H 22 98 09/21/22 16:00 124/56 09/21/22 15:45 97 H 32 H 99 09/21/22 15:38 100 H 23 99 09/21/22 15:10 99.2 F 110 H 18 73/45 95 Room Air 12/20/21 08:00 134/60 General Limitations: Physical Limitation (LIMITED DMOBILITY DUE TO ABDOMINAL PAIN) General Appearance: In Distress (MODERATE DISTRESS) Head Head Exam: Normal Inspection and Atraumatic Eyes Eye exam: Normal Appearance, PERRL and EOMI ENT ENT Exam: Normal Exam, Normal Oropharynx and Normal External Ear Exam Neck Neck Exam: Normal Inspection Chest Chest Inspection: Normal Inspection and Symmetric Chest Wall Rise Respiratory Respiratory Exam: Normal Lung Sounds Bilat Respiratory Exam: Bilateral: Clear to Auscultation Cardiovascular Cardiovascular Exam: Regular Rate and Normal Rhythm Abdominal Exam Abdominal Exam: Normal Bowel Sounds and Tenderness (GLOBALLY) Abdominal Tenderness: Diffuse Rectal Rectal Exam: Deferred Back Back Exam: Normal Inspection Extremeties Extremities Exam: Normal Inspection Exam: Male: Deferred Neurologic Neurological Exam: Alert, Oriented X3 and CN II-XII Intact Psychiatric Psychiatric Exam: Depressed Skin Skin Exam: Warm, Dry and Intact MDM Differential Diagnosis Differential Diagnosis: Bowel Obstruction, Constipation, Urinary tract infection and Other (comments) (BOWEL PERFERATION) COURSE Treatment Treatment: PATIENT WAS FOUND TO HAVE A PERFERATED GI TRACT WITH AMBER AIR AND A S MA;\LL AMOUT OF INTRAABDONINAL FLUIS . COLONIC PERFORATION IS SUSPECTED. QUESTIONABLE MASS IN THE SIGMOID COLON CAUSING THE OBSTRUCTION. SMALL HIATAL HERNIA AND MILD BIBASILAR ATELECTASIS AND TRACE EFFUSION. SPOKE TO DR PENNINGTON THE SURGEON SY 7:58 AND HE STATED TO GET A BE UPSTAIRS AND GIVE ZOSYN 3.375 IV AND MAKE NPO. THE INTENT WAS EXPLAINED TO THE PATIENT AND HE AGREED TO THE ADMISSION. ROR Labs Reviewed Laboratory Results Reviewed?: Yes Result Diagrams: 09/21/22 17:00 09/21/22 17:00 Laboratory: WBC 4.3 X10^3/uL (3.6-10.0) 09/21/22 17:00 RBC 3.40 X10^6/uL (4.7-6.0) L 09/21/22 17:00 Hgb 10.1 g/dL (13.5-18.0) L 09/21/22 17:00 Hct 29.0 % (42.0-54.0) L 09/21/22 17:00 MCV 85.3 fL (80.0-100.0) 09/21/22 17:00 MCH 29.8 pg (27.0-34.0) 09/21/22 17:00 MCHC 34.9 g/dL (33.0-35.0) 09/21/22 17:00 RDW 17.6 % (11.6-16.5) H 09/21/22 17:00 Plt Count 282 X10^3/uL (150.0-450.0) 09/21/22 17:00 Plt Count Comment Adequate (ADEQUATE) 09/21/22 17:00 MPV 6.8 fL (7.4-11.0) L 09/21/22 17:00 Neut % (Auto) 90.6 % (42.0-75.0) H 09/21/22 17:00 Lymph % (Auto) 4.7 % (21.0-51.0) L 09/21/22 17:00 [place] % (Auto) 1.8 % (0.0-13.0) 09/21/22 17:00 Eos % (Auto) 0.7 % (0.9-2.9) L 09/21/22 17:00 Baso % (Auto) 2.2 % (0.2-1.0) H 09/21/22 17:00 Neut # (Auto) 3.9 x10^3/uL (2.2-4.8) 09/21/22 17:00 Lymph # (Auto) 0.2 X10^3/uL (1.3-2.9) L 09/21/22 17:00 [place] # (Auto) 0.1 x10^3/uL (0.3-0.8) L 09/21/22 17:00 Eos # (Auto) 0.0 x10^3/uL (0.0-0.2) 09/21/22 17:00 Baso # (Auto) 0.1 X10^3/uL (0.0-0.1) 09/21/22 17:00 Absolute Nucleated RBC 0.1 /100WBC 09/21/22 17:00 Total Counted 100 09/21/22 17:00 Neutrophils % (Manual) 65 % (39-76) 09/21/22 17:00 Band Neutrophils % 14 % (0-10) H 09/21/22 17:00 Lymphocytes % (Manual) 14 % (13-43) 09/21/22 17:00 Monocytes % (Manual) 7 % (4-9) 09/21/22 17:00 Plt Morphology Comment Normal (NORMAL) 09/21/22 17:00 RBC Morphology Abnormal (NORMAL) 09/21/22 17:00 Poikilocytosis Slight A 09/21/22 17:00 Anisocytosis Slight A 09/21/22 17:00 Sodium 137 mmol/L (136-145) 09/21/22 17:00 Corrected Sodium TNP 09/21/22 17:00 Potassium 2.8 mmol/L (3.5-5.1) L* 09/21/22 17:00 Chloride 100 mmol/L (98-107) 09/21/22 17:00 Carbon Dioxide 30.0 mmol/L (21-32) 09/21/22 17:00 BUN 12 mg/dL (7-18) 09/21/22 17:00 Creatinine 2.17 mg/dL (0.70-1.30) H 09/21/22 17:00 Est GFR (MDRD) Af Amer 37 (>60) L 09/21/22 17:00 Est GFR (MDRD) Non-Af 31 (>60) L 09/21/22 17:00 Glucose 91 mg/dL (65-99) 09/21/22 17:00 Calcium 8.3 mg/dL (8.5-10.1) L 09/21/22 17:00 Corrected Calcium 9.1 mg/dL (8.5-10.1) 09/21/22 17:00 Total Bilirubin 1.00 mg/dL (0.2-1.0) 09/21/22 17:00 AST 18 Units/L (15-37) 09/21/22 17:00 ALT 9 Units/L (12-78) L 09/21/22 17:00 Alkaline Phosphatase 69 Units/L (46-116) 09/21/22 17:00 Total Protein 6.2 g/dL (6.4-8.2) L 09/21/22 17:00 Albumin 3.0 g/dL (3.4-5.0) L 09/21/22 17:00 Globulin 3.2 g/dL (2.5-4.5) 09/21/22 17:00 Albumin/Globulin Ratio 0.9 Ratio (1.1-2.1) L 09/21/22 17:00 Lipase 52 Units/L (73-393) L 09/21/22 17:00 Specimen Type Clean catch urine 09/21/22 19:42 Urine Color Yellow (YELLOW) 09/21/22 19:42 Urine Appearance Clear (CLEAR) 09/21/22 19:42 Urine pH 6.0 (5.0 - 8.0) 09/21/22 19:42 Ur Specific [place] 1.015 (1.000-1.030) 09/21/22 19:42 Urine Protein 1+ (NEGATIVE) 09/21/22 19:42 Urine Glucose (UA) Negative (NEGATIVE) 09/21/22 19:42 Urine Ketones Negative (NEGATIVE) 09/21/22 19:42 Urine Blood 2+ (NEGATIVE) 09/21/22 19:42 Urine Nitrite Negative (NEGATIVE) 09/21/22 19:42 Urine Bilirubin Negative (NEGATIVE) 09/21/22 19:42 Urine Urobilinogen Normal (NORMAL) 09/21/22 19:42 Ur Leukocyte Esterase Negative (NEGATIVE) 09/21/22 19:42 Urine RBC 3-5 /HPF (0-3) A 09/21/22 19:42 Urine WBC None seen /HPF (0-5) 09/21/22 19:42 Ur Squamous Epith Cells Rare /HPF (NEGATIVE) 09/21/22 19:42 Urine Bacteria Negative /HPF (NEGATIVE) 09/21/22 19:42 Ur Culture Indicated? No/not indicated 09/21/22 19:42 Opioid Opioid Risk Tool Age (Satish box if 16-45): No History of Preadolescent Sexual Abuse: No Total: 0 Total Score Risk Category: Low Risk Copyright: Jose A NAYAK predicting aberrant behaviors Discharge Plan Diagnosis Discharge Problem: Bowel perforation, Colonic mass, Hypokalemia Discharge Plan Patient Disposition: 09 ADMITTED INPATIENT Condition: Stable Orders to Discharge Patient Discharge Orders: Transfer (Routine); Ordered 09/21/22 Ordered By: Khoa Blanco
[2022-09-21 17:19] LABS: BASOPHILS # (AUTO) 0.1 X10^3/uL (0.0-0.1); BASOPHILS % (AUTO) 2.2 % (0.2-1.0); EOSINOPHILS % (AUTO) 0.7 % (0.9-2.9); HEMOGLOBIN 10.1 g/dL (13.5-18.0); LYMPHOCYTES # (AUTO) 0.2 X10^3/uL (1.3-2.9); LYMPHOCYTES % (AUTO) 4.7 % (21.0-51.0); MEAN CORPUSCULAR HEMOGLOBIN 29.8 pg (27.0-34.0); MEAN CORPUSCULAR HGB CONC 34.9 g/dL (33.0-35.0); MEAN CORPUSCULAR VOLUME 85.3 fL (80.0-100.0); MEAN PLATELET VOLUME 6.8 fL (7.4-11.0); MONOCYTES # (AUTO) 0.1 x10^3/uL (0.3-0.8); MONOCYTES % (AUTO) 1.8 % (0.0-13.0); NEUTROPHILS # (AUTO) 3.9 x10^3/uL (2.2-4.8); NEUTROPHILS % (AUTO) 90.6 % (42.0-75.0); RED CELL DISTRIBUTION WIDTH 17.6 % (11.6-16.5); WHITE BLOOD COUNT 4.3 X10^3/uL (3.6-10.0)
[2022-09-21 17:29] LABS: ALANINE AMINOTRANSFERASE 9 Units/L (12-78); ALKALINE PHOSPHATASE 69 Units/L (46-116); ASPARTATE AMINO TRANSFERASE 18 Units/L (15-37); BLOOD UREA NITROGEN 12 mg/dL (7-18); CALCIUM 8.3 mg/dL (8.5-10.1); CHLORIDE 100 mmol/L (98-107); COR CA(FOR HYPOALB) 9.1 mg/dL (8.5-10.1); CREATININE 2.17 mg/dL (0.70-1.30); LIPASE 52 Units/L (73-393); SODIUM 137 mmol/L (136-145); TOTAL PROTEIN 6.2 g/dL (6.4-8.2); eGFR NON BLACK RACES 31 (>60)
[2022-09-21 17:51] LABS: BAND NEUTROPHILS % 14 % (0-10)
[2022-09-21 17:52] LABS: ANISOCYTOSIS SLIGHT; PLATELET MORPHOLOGY COMMENT NORMAL (NORMAL); POIKILOCYTOSIS SLIGHT
[2022-09-21] MEDS ORDERED: KLOR-CON PO ONE (18:30)
[2022-09-21] MEDS ORDERED: KLOR-CON ONE (18:31)
--- NOTE | 2022-09-21 18:46 | CT ---
HISTORYABD PAIN LOWER RIGHT AND LEFT AND AROUND NAVEL. GRADUAL ONSET 1-2 DAYS AGO. WORSE WITH ANY MOVEMENT OR WHEN IN AUTO AND HITS BUMPSSTUDYABDOMEN/PELVIS W/O CONCOMPARISONTECHNIQUEMultiple axial images of the abdomen and pelvis were obtained from the lung bases to the pubic symphysis without the administration of IV contrast. Dose reduction techniques including Automated Exposure Control (AEC) and adjustment of mA and kV were utilized.FINDINGSThere is mild basilar atelectasis and small bilateral pleural effusions. Heart size is normal. There is a trace pericardial effusion. There is atherosclerosis in the LAD and RCA. There is wall thickening in the distal esophagus. Correlate clinically for reflux esophagitis. The liver is normal. The gallbladder has been removed. Pancreas is atrophic but otherwise unremarkable. The spleen and adrenal glands are normal. The kidneys are atrophic. There are stones in the collecting system bilaterally with the largest stone being on the left side and measuring up to 8 mm. There is no hydronephrosis on either side. There is fluid in the stomach which is otherwise unremarkable. There is no abnormal dilation of the small bowel. The appendix is normal. The large bowel is distended with largely gas and some stool. This dilation abruptly terminates in the sigmoid colon where there is questionably a mass lesion. There is a perforation somewhere in the GI tract as there is free intra-abdominal air. The perforation location is not well-defined. I suspect somewhere in the large bowel as this is where there is some gas in the mesenteric fat. There is a small amount of free intra-abdominal fluid. The urinary bladder is grossly normal. There are small fat containing inguinal hernias. The prostate measures 4.6 cm in diameter. There is no worrisome bone marrow lesion.IMPRESSION1. Perforated GI tract with free intra-abdominal air and a small amount of free intra-abdominal fluid. A colonic perforation is suspected. 2. Question mass in the sigmoid colon causing the obstruction. 3. Small hiatal hernia. 3. Mild basilar atelectasis and trace effusions. Critical finding pathway was activated.Electronically signed by: Tae Hewitt (Sep 21, 2022 18:45:06)
[2022-09-21 19:49] LABS: BILIRUBIN,URINE NEGATIVE (NEGATIVE); BLOOD/HEMOGLOBIN,URINE 2+ (NEGATIVE); GLUCOSE, URINE NEGATIVE (NEGATIVE); KETONES,URINE NEGATIVE (NEGATIVE); LEUKOCYTE ESTERASE ,URINE NEGATIVE (NEGATIVE); NITRITES,URINE NEGATIVE (NEGATIVE); PROTEIN,URINE 1+ (NEGATIVE); UROBILINOGEN,URINE NORMAL (NORMAL)
[2022-09-21 19:55] LABS: APPEARANCE,URINE CLEAR (CLEAR); BACTERIA,URINE NEGATIVE /HPF (NEGATIVE); COLOR,URINE YELLOW (YELLOW); SQUAMOUS EPITHELIAL CELL,UR RARE /HPF (NEGATIVE)
[2022-09-21] MEDS ORDERED: ZOSYN VIAL 3.375 GRAMS 3.375 G in NS 100 ML IV 100 ML IV ONE (19:59)
[2022-09-21] MEDS ORDERED: ZOSYN VIAL 3.375 GRAMS IV ONE (19:59)
[2022-09-21] MEDS ORDERED: NS 100 ML IV 100 ML ONE (20:00)
[2022-09-21] MEDS ORDERED: DILAUDID INJ IVP PRN (20:59)
[2022-09-21] MEDS ORDERED: LR 1,000 ML IV 1,000 ML IV ONE (21:09)
[2022-09-21] MEDS: DILAUDID INJ IVP PRN (21:18)
--- NOTE | 2022-09-21 21:40 | EKG ---
Test Reason : preop Blood Pressure : */* mmHG Vent. Rate : 96 BPM Atrial Rate : 96 BPM P-R Int : 190 ms QRS Dur : 130 ms QT Int : 420 ms P-R-T Axes : 39 -27 147 degrees QTc Int : 530 ms Normal sinus rhythm Left ventricular hypertrophy with QRS widening and repolarization abnormality ( R in aVL , Sokolow-Ly on , [place] product ) Abnormal ECG No previous ECGs available Left bundle branch block Confirmed by Rk Moya ([id number]) on 09/23/2022 2:27:46 PM Referred By: Confirmed By: Rk Moya
[2022-09-21] MEDS: K-RIDER 10 MEQ/NS 100 ML 10 MEQ/100 ML BAG IV PRN ×3 (21:48→23:53)
[2022-09-21] MEDS: LR 1,000 ML IV 1,000 ML IV SCH (23:00)
[2022-09-22] MEDS: K-RIDER 10 MEQ/NS 100 ML 10 MEQ/100 ML BAG IV PRN ×2 (00:55→02:12)
[2022-09-22 03:08] VITALS: BMI 19.5
[2022-09-22] MEDS: MAGNESIUM SULFATE 1 GRAM/100 mL PREMIX 1 G/100 ML BAG IV PRN (03:18)
[2022-09-22] MEDS: DILAUDID INJ IVP PRN ×2 (03:49→20:43)
[2022-09-22 05:06] LABS: BLOOD UREA NITROGEN 16 mg/dL (7-18); CALCIUM 8.2 mg/dL (8.5-10.1); CARBON DIOXIDE 25.6 mmol/L (21-32); CHLORIDE 102 mmol/L (98-107); CREATININE 2.07 mg/dL (0.70-1.30); SODIUM 138 mmol/L (136-145); eGFR NON BLACK RACES 33 (>60)
[2022-09-22] MEDS: ZOSYN VIAL 3.375 GRAMS 3.375 G in NS 100 ML IV 100 ML IV SCH ×3 (05:26→21:04)
[2022-09-22] MEDS ORDERED: FENTANYL VIAL INJ 100 mcg ONE ×2 (08:00→09:34)
[2022-09-22] MEDS ORDERED: VERSED ONE (08:00)
[2022-09-22] MEDS ORDERED: BRIDION ONE (08:07)
[2022-09-22] MEDS ORDERED: DIPRIVAN VIAL 20 ML ONE (08:07)
[2022-09-22] MEDS ORDERED: EPHEDRINE SULFATE INJ ONE (08:07)
[2022-09-22] MEDS ORDERED: NEO-SYNEPHRINE INJ ONE (08:07)
[2022-09-22] MEDS ORDERED: PEPCID 20 MG VIAL ONE (08:08)
[2022-09-22] MEDS ORDERED: ZEMURON 100 MG VIAL ONE (08:08)
[2022-09-22] MEDS ORDERED: ZOFRAN INJ 4 MG VIAL ONE (08:08)
[2022-09-22] MEDS: LR 1,000 ML IV 1,000 ML IV SCH ×3 (08:17→21:03)
--- NOTE | 2022-09-22 08:24 | DR.H&P ---
H&P History & Physical for Day of: H&P Date: 09/21/22 Chief Complaint Chief Complaint: 86 yo male with acute onset of weakness 3 days ago closely followed by acute lower abdominal pain Allergies Allergies Allergy/AdvReac Type Severity Reaction Status Date / Time nitroglycerin Allergy Verified 09/21/22 15:07 Penicillins Allergy Verified 09/21/22 15:07 propoxyphene Allergy Verified 09/21/22 15:07 [From Darvocet-N] History of Present Illness History of Present Illness: As above. Evaluated in the ER with CT findings of pneumoperitoneum with dilated colon, possible obstructing sigmoid mass Past Medical History Past Medical History: Anxiety, Arthritis, COPD, Depression, Dyslipidemia, GERD, Hypertension and Hypothyroidism Past Surgical History Surgical History: Cholecystectomy and Other Additional Surgical History: CATARACTS, BACK SURGERY Family History Family Medical History: Hypertension Social History Type of Tobacco Use: Smokeless Alcohol Use: None Medications Home Medications: nitroglycerin Allergy (Verified 09/21/22 15:07) Penicillins Allergy (Verified 09/21/22 15:07) propoxyphene [From Darvocet-N] Allergy (Verified 09/21/22 15:07) CONTINUE taking the following medications aspirin 81 mg tablet,delayed release 81 mg PO QDAY 09/21/22 [History] famotidine 40 mg tablet 40 mg PO QDAY 09/21/22 [History] levothyroxine 50 mcg tablet 50 mcg PO QDAY disorder of thyroid gland 09/21/22 [History] megestrol 40 mg tablet 40 mg PO BID 09/21/22 [History] metoprolol succinate 50 mg tablet,extended release 24 hr 50 mg PO QDAY 09/21/22 [History] olmesartan 20 mg tablet 20 mg PO QDAY 09/21/22 [History] rosuvastatin 40 mg tablet 40 mg PO HS 09/21/22 [History] Labs Result Diagrams: 09/21/22 17:00 09/22/22 04:06 Labs: Laboratory WBC 4.3 X10^3/uL (3.6-10.0) 09/21/22 17:00 RBC 3.40 X10^6/uL (4.7-6.0) L 09/21/22 17:00 Hgb 10.1 g/dL (13.5-18.0) L 09/21/22 17:00 Hct 29.0 % (42.0-54.0) L 09/21/22 17:00 MCV 85.3 fL (80.0-100.0) 09/21/22 17:00 MCH 29.8 pg (27.0-34.0) 09/21/22 17:00 MCHC 34.9 g/dL (33.0-35.0) 09/21/22 17:00 RDW 17.6 % (11.6-16.5) H 09/21/22 17:00 Plt Count 282 X10^3/uL (150.0-450.0) 09/21/22 17:00 Plt Count Comment Adequate (ADEQUATE) 09/21/22 17:00 MPV 6.8 fL (7.4-11.0) L 09/21/22 17:00 Neut % (Auto) 90.6 % (42.0-75.0) H 09/21/22 17:00 Lymph % (Auto) 4.7 % (21.0-51.0) L 09/21/22 17:00 [place] % (Auto) 1.8 % (0.0-13.0) 09/21/22 17:00 Eos % (Auto) 0.7 % (0.9-2.9) L 09/21/22 17:00 Baso % (Auto) 2.2 % (0.2-1.0) H 09/21/22 17:00 Neut # (Auto) 3.9 x10^3/uL (2.2-4.8) 09/21/22 17:00 Lymph # (Auto) 0.2 X10^3/uL (1.3-2.9) L 09/21/22 17:00 [place] # (Auto) 0.1 x10^3/uL (0.3-0.8) L 09/21/22 17:00 Eos # (Auto) 0.0 x10^3/uL (0.0-0.2) 09/21/22 17:00 Baso # (Auto) 0.1 X10^3/uL (0.0-0.1) 09/21/22 17:00 Absolute Nucleated RBC 0.1 /100WBC 09/21/22 17:00 Total Counted 100 09/21/22 17:00 Neutrophils % (Manual) 65 % (39-76) 09/21/22 17:00 Band Neutrophils % 14 % (0-10) H 09/21/22 17:00 Lymphocytes % (Manual) 14 % (13-43) 09/21/22 17:00 Monocytes % (Manual) 7 % (4-9) 09/21/22 17:00 Plt Morphology Comment Normal (NORMAL) 09/21/22 17:00 RBC Morphology Abnormal (NORMAL) 09/21/22 17:00 Poikilocytosis Slight A 09/21/22 17:00 Anisocytosis Slight A 09/21/22 17:00 Sodium 137 mmol/L (136-145) 09/21/22 17:00 Corrected Sodium TNP 09/21/22 17:00 Potassium 3.0 mmol/L (3.5-5.1) L 09/21/22 21:04 Chloride 100 mmol/L (98-107) 09/21/22 17:00 Carbon Dioxide 30.0 mmol/L (21-32) 09/21/22 17:00 BUN 12 mg/dL (7-18) 09/21/22 17:00 Creatinine 2.17 mg/dL (0.70-1.30) H 09/21/22 17:00 Est GFR (MDRD) Af Amer 37 (>60) L 09/21/22 17:00 Est GFR (MDRD) Non-Af 31 (>60) L 09/21/22 17:00 Glucose 91 mg/dL (65-99) 09/21/22 17:00 Calcium 8.3 mg/dL (8.5-10.1) L 09/21/22 17:00 Corrected Calcium 9.1 mg/dL (8.5-10.1) 09/21/22 17:00 Magnesium 1.8 mg/dL (2.0-2.9) L 09/21/22 21:04 Total Bilirubin 1.00 mg/dL (0.2-1.0) 09/21/22 17:00 AST 18 Units/L (15-37) 09/21/22 17:00 ALT 9 Units/L (12-78) L 09/21/22 17:00 Alkaline Phosphatase 69 Units/L (46-116) 09/21/22 17:00 Total Protein 6.2 g/dL (6.4-8.2) L 09/21/22 17:00 Albumin 3.0 g/dL (3.4-5.0) L 09/21/22 17:00 Globulin 3.2 g/dL (2.5-4.5) 09/21/22 17:00 Albumin/Globulin Ratio 0.9 Ratio (1.1-2.1) L 09/21/22 17:00 Lipase 52 Units/L (73-393) L 09/21/22 17:00 Specimen Type Clean catch urine 09/21/22 19:42 Urine Color Yellow (YELLOW) 09/21/22 19:42 Urine Appearance Clear (CLEAR) 09/21/22 19:42 Urine pH 6.0 (5.0 - 8.0) 09/21/22 19:42 Ur Specific [place] 1.015 (1.000-1.030) 09/21/22 19:42 Urine Protein 1+ (NEGATIVE) 09/21/22 19:42 Urine Glucose (UA) Negative (NEGATIVE) 09/21/22 19:42 Urine Ketones Negative (NEGATIVE) 09/21/22 19:42 Urine Blood 2+ (NEGATIVE) 09/21/22 19:42 Urine Nitrite Negative (NEGATIVE) 09/21/22 19:42 Urine Bilirubin Negative (NEGATIVE) 09/21/22 19:42 Urine Urobilinogen Normal (NORMAL) 09/21/22 19:42 Ur Leukocyte Esterase Negative (NEGATIVE) 09/21/22 19:42 Urine RBC 3-5 /HPF (0-3) A 09/21/22 19:42 Urine WBC None seen /HPF (0-5) 09/21/22 19:42 Ur Squamous Epith Cells Rare /HPF (NEGATIVE) 09/21/22 19:42 Urine Bacteria Negative /HPF (NEGATIVE) 09/21/22 19:42 Ur Culture Indicated? No/not indicated 09/21/22 19:42 Review of Systems Constitutional: See HPI Eyes: No Symptoms Reported ENT: No Symptoms Reported Respiratory: No Symptoms Reported Cardiovascular: No Symptoms Reported Gastrointestinal: See HPI Genitourinary: No Symptoms Reported Musculoskeletal: No Symptoms Reported Skin: No Symptoms Reported Neurological: No Symptoms Reported Physical Exam Vital Signs: Temperature 98.4 F Pulse Rate [Right] 60 Pulse Rate 91 Respiratory Rate 21 Blood Pressure [Left Arm] 134/60 Blood Pressure 112/58 O2 Sat by Pulse Oximetry 97 Oriented: Normal, Time, Person and Place Eyes: Normal Ear: Normal Nose: Normal Throat: Normal Respiratory: Clear Throughout Cardiovascular: Normal : Normal Auscultation: Bowel Sounds: Absent Palpation: Other (distended) Tenderness: LLQ (with rebound) Skin: Normal Musculoskeletal: Normal Psychiatric: Normal Mood Description: Calm Affect: Flat Speech Pattern: Clear Assessment/Plan (1) Bowel perforation: Status: Acute Plan: Patient needs hydration, correction of hyopokalemia and IV antibiotics in preparation for laparoscopy vs open exploration, probable sigmoid resection and end colostomy is situation with no bowel prep, perforation and obstruction (2) Colonic mass: Status: Acute Plan: see #1 (3) COPD (chronic obstructive pulmonary disease): Status: Acute Plan: home medications (4) Hypothyroidism: Status: Acute Plan: home medications (5) Hypertension: Status: Acute Plan: home medications (6) Hypokalemia: Status: Acute Plan: Correct with IV K+ prior to surgery Review H&P Reviewed: Yes
[2022-09-22] MEDS ORDERED: MARCAINE 0.25% INJ ONE (08:43)
[2022-09-22] MEDS ORDERED: ULTANE GAS IN ONE (08:55)
[2022-09-22] MEDS ORDERED: LR 1,000 ML IV 1,000 ML IV ONE ×2 (09:52→11:18)
--- NOTE | 2022-09-22 10:15 | RAD ---
HISTORYPreop gallbladderSTUDYAP chestCOMPARISONJuly 2021FINDINGSHeart size normal. Diaphragm elevation is present with significant gaseous dilatation of bowel in the upper abdomen and free air is noted under the diaphragm. There is no evidence for pulmonary consolidation or pneumothorax.IMPRESSIONIntestinal distention with pneumoperitoneum, described on recent abdomen CT.Electronically signed by: JUANA GUAMAN (Sep 22, 2022 10:13:49)
[2022-09-22] MEDS ORDERED: DILAUDID INJ ONE (10:59)
--- NOTE | 2022-09-22 11:54 | OR.IMMED ---
IMMEDIATE POST-OP NOTE Immediate Post-Op Note Pre-Op Diagnosis: colon perforation, possible sigmoid colon mass Post-Op Diagnosis: Mass ( tumor) of mid left colon with obstruction and perforation of cecum with moderate contamination Procedure: Laparoscopy converted to laparotomy and resection cecum with reanastomosis, left colectomy with end colostomy Description of Procedure: see operative summary Surgeon/Director [employer]: Greg Specimens Removed: cecum and terminal ileum, left colon Estimated Blood Loss: 150 cc Drains: NONE Progress Notes: extubated, back to ICU for continued fluids and antibiotics, Observe colostomy, observe wound , high risk of wound infection, NG and Givens in place .
[2022-09-22] MEDS ORDERED: ZOFRAN INJ 4 MG VIAL IVP PRN (12:01)
[2022-09-22] MEDS ORDERED: BENADRYL INJ 50 MG VIAL IVP PRN (12:01)
[2022-09-22] MEDS ORDERED: BARHEMSYS INJ IVP PRN (12:01)
[2022-09-22] MEDS ORDERED: DILAUDID INJ IVP PRN (12:01)
[2022-09-22] MEDS: TOPROL XL PO SCH (13:28)
[2022-09-22] MEDS: PROTONIX INJ 40 MG VIAL IVP SCH (13:28)
[2022-09-23] MEDS: DILAUDID INJ IVP PRN ×4 (01:15→21:00)
[2022-09-23 05:05] LABS: BASOPHILS % (AUTO) 0.3 % (0.2-1.0); EOSINOPHILS % (AUTO) 0.2 % (0.9-2.9); HEMATOCRIT 28.1 % (42.0-54.0); HEMOGLOBIN 9.8 g/dL (13.5-18.0); LYMPHOCYTES # (AUTO) 0.5 X10^3/uL (1.3-2.9); LYMPHOCYTES % (AUTO) 7.7 % (21.0-51.0); MEAN CORPUSCULAR HEMOGLOBIN 30.1 pg (27.0-34.0); MEAN CORPUSCULAR HGB CONC 34.7 g/dL (33.0-35.0); MEAN CORPUSCULAR VOLUME 86.6 fL (80.0-100.0); MEAN PLATELET VOLUME 7.6 fL (7.4-11.0); MONOCYTES # (AUTO) 0.3 x10^3/uL (0.3-0.8); MONOCYTES % (AUTO) 4.4 % (0.0-13.0); NEUTROPHILS # (AUTO) 5.7 x10^3/uL (2.2-4.8); NEUTROPHILS % (AUTO) 87.4 % (42.0-75.0); RED BLOOD COUNT 3.24 X10^6/uL (4.7-6.0); WHITE BLOOD COUNT 6.5 X10^3/uL (3.6-10.0)
[2022-09-23 05:09] LABS: BLOOD UREA NITROGEN 23 mg/dL (7-18); CALCIUM 7.8 mg/dL (8.5-10.1); CARBON DIOXIDE 27.6 mmol/L (21-32); CHLORIDE 104 mmol/L (98-107); CREATININE 2.15 mg/dL (0.70-1.30); SODIUM 139 mmol/L (136-145); eGFR NON BLACK RACES 31 (>60)
[2022-09-23] MEDS: ZOSYN VIAL 3.375 GRAMS 3.375 G in NS 100 ML IV 100 ML IV SCH ×3 (05:13→21:01)
[2022-09-23] MEDS: LR 1,000 ML IV 1,000 ML IV SCH ×3 (05:13→21:01)
[2022-09-23] MEDS: PROTONIX INJ 40 MG VIAL IVP SCH (10:59)
[2022-09-23] MEDS: MAGNESIUM SULFATE 1 GRAM/100 mL PREMIX 1 G/100 ML BAG IV PRN (11:00)
[2022-09-23] MEDS: TOPROL XL PO SCH (13:00)
[2022-09-23] MEDS ORDERED: NS 1,000 ML IV 1,000 ML IV ONE (20:13)
--- NOTE | 2022-09-23 20:21 | NOTE.SOAP ---
Soap Note Note for Day of Date of Exam: 09/23/22 Subjective Data Subjective Data: POD # 1 after laparotomy and resection perforated cecum and resection perforated left colon cancer with end colostomy. Doing well. Objective Data Temperature: 97.1 F Pulse Rate: 97 Respiratory Rate: 20 Blood Pressure: 132/58 O2 Sat by Pulse Oximetry: 100 Objective Data: Colostomy pink. Incision had some dranage( bloody) but this resolved. 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 Bolus with NS . Observe wound and the renal function. Will d/c NG tube as it has little output. Ice chips.
[2022-09-24] MEDS: DILAUDID INJ IVP PRN (04:26)
[2022-09-24] MEDS: ZOSYN VIAL 3.375 GRAMS 3.375 G in NS 100 ML IV 100 ML IV SCH ×3 (05:08→21:02)
[2022-09-24] MEDS: LR 1,000 ML IV 1,000 ML IV SCH ×3 (05:08→21:02)
[2022-09-24 05:21] LABS: BLOOD UREA NITROGEN 24 mg/dL (7-18); CALCIUM 7.7 mg/dL (8.5-10.1); CARBON DIOXIDE 27.9 mmol/L (21-32); CHLORIDE 106 mmol/L (98-107); CREATININE 1.82 mg/dL (0.70-1.30); SODIUM 140 mmol/L (136-145); eGFR NON BLACK RACES 38 (>60)
[2022-09-24] MEDS: TOPROL XL PO SCH (08:28)
[2022-09-24] MEDS: PROTONIX INJ 40 MG VIAL IVP SCH (08:30)
[2022-09-24] MEDS ORDERED: ATIVAN INJ 2 MG VIAL ONE (15:35)
[2022-09-24] MEDS: ATIVAN INJ 2 MG VIAL IM PRN ×2 (15:41→21:46)
--- NOTE | 2022-09-24 16:41 | OR.IMMED ---
IMMEDIATE POST-OP NOTE Immediate Post-Op Note Pre-Op Diagnosis: Confused . pulled out all peripheral IV access Post-Op Diagnosis: same Procedure: attempted left subclavian vein access, moving too much, unsuccessful , placed right femoral vein triple lumen cathter. Description of Procedure: see operative summary Surgeon/Dsp Engineer: Greg Estimated Blood Loss: 10 cc Complications: none, but CXR pending
--- NOTE | 2022-09-24 17:49 | RAD ---
HISTORYUNSUCCESFUL ATTEMPTS AT CENTRAL LINE PSH: CATARACT, GB, ORTHO,STUDYCHEST, 1 VIEWCOMPARISONFrontal chest radiograph September 22, 2022FINDINGSCentral line is not visible. The heart is enlarged. Pulmonary vascular prominence. Interstitial infiltrates. No complicating pneumothorax.IMPRESSIONMild pulmonary vascular congestionElectronically signed by: Nuno Johnson (Sep 24, 2022 17:46:55)
[2022-09-24] MEDS: LOVENOX INJ 30 MG SYR SC SCH (21:03)
--- NOTE | 2022-09-24 23:49 | NOTE.SOAP ---
Soap Note Note for Day of Date of Exam: 09/24/22 Subjective Data Subjective Data: POD # 2 s/p laparotomy for obstructing left colon cancer and perforation of the cecum requiring resection of the perforated cecum with ilieo-colic anastomosis and resection of left colon and end colostomy. Has made great improvement and NG tube out and was tolerating ice chips and was to start clear liquid diet. Became acutely confused and pulled out all of his IVs. Right femoral venous triple lumen catheter placed. No history of alcohol abuse. Objective Data Temperature: 98.3 F Pulse Rate: 95 Respiratory Rate: 22 Blood Pressure: 149/63 O2 Sat by Pulse Oximetry: 96 Objective Data: Abdomen soft.Colostomy functioning and is pink. Incision of abdomen clean and dry. Assessment Assessment: POD #2 after surgery as above Plan Plan: Round the clock IV Ativan, B12 and folate, Bananna bag
[2022-09-25] MEDS: DILAUDID INJ IVP PRN ×3 (02:25→21:33)
[2022-09-25 04:57] LABS: BASOPHILS % (AUTO) 0.2 % (0.2-1.0); EOSINOPHILS # (AUTO) 0.2 x10^3/uL (0.0-0.2); EOSINOPHILS % (AUTO) 3.4 % (0.9-2.9); LYMPHOCYTES # (AUTO) 0.6 X10^3/uL (1.3-2.9); LYMPHOCYTES % (AUTO) 9.1 % (21.0-51.0); MEAN CORPUSCULAR HEMOGLOBIN 29.9 pg (27.0-34.0); MEAN CORPUSCULAR HGB CONC 34.8 g/dL (33.0-35.0); MEAN CORPUSCULAR VOLUME 85.8 fL (80.0-100.0); MEAN PLATELET VOLUME 7.4 fL (7.4-11.0); MONOCYTES # (AUTO) 0.4 x10^3/uL (0.3-0.8); MONOCYTES % (AUTO) 5.5 % (0.0-13.0); NEUTROPHILS # (AUTO) 5.5 x10^3/uL (2.2-4.8); NEUTROPHILS % (AUTO) 81.8 % (42.0-75.0); RED BLOOD COUNT 2.45 X10^6/uL (4.7-6.0); RED CELL DISTRIBUTION WIDTH 17.6 % (11.6-16.5); WHITE BLOOD COUNT 6.7 X10^3/uL (3.6-10.0)
[2022-09-25 05:03] LABS: HEMOGLOBIN 7.3 g/dL (13.5-18.0)
[2022-09-25 05:10] LABS: BLOOD UREA NITROGEN 27 mg/dL (7-18); CALCIUM 7.4 mg/dL (8.5-10.1); CARBON DIOXIDE 23.2 mmol/L (21-32); CHLORIDE 108 mmol/L (98-107); SODIUM 141 mmol/L (136-145); eGFR NON BLACK RACES 41 (>60)
[2022-09-25] MEDS: LR 1,000 ML IV 1,000 ML IV SCH ×3 (05:15→21:28)
[2022-09-25] MEDS: ZOSYN VIAL 3.375 GRAMS 3.375 G in NS 100 ML IV 100 ML IV SCH ×3 (05:15→21:27)
[2022-09-25] MEDS: PROTONIX INJ 40 MG VIAL IVP SCH (09:05)
[2022-09-25] MEDS: TOPROL XL PO SCH (09:07)
[2022-09-25] MEDS: ATIVAN INJ 2 MG VIAL IM PRN (09:11)
[2022-09-25] MEDS ORDERED: NS 500 ML IV 500 ML IV ONE (17:33)
[2022-09-25 21:14] LABS: HEMATOCRIT 27.8 % (42.0-54.0); HEMOGLOBIN 9.6 g/dL (13.5-18.0)
[2022-09-25] MEDS ORDERED: LASIX IVP ONE ×2 (21:24→21:29)
[2022-09-25] MEDS: LOVENOX INJ 30 MG SYR SC SCH (21:28)
--- NOTE | 2022-09-25 22:11 | NOTE.SOAP ---
Soap Note Note for Day of Date of Exam: 09/25/22 Subjective Data Subjective Data: POD # 3 laparotomy and resection of perforated cecum and reanastomosis and resection of obstructing left colon cancer with end colostomy. Patient sedated after events of yesterday with this confused patient. Objective Data Temperature: 98.4 F Pulse Rate: 104 Respiratory Rate: 24 Blood Pressure: 160/82 Objective Data: Hgb=7.3, Abdomen soft and mildly distended. Incision clean and dry. Cr=1.7, K+= 3.5 Assessment Assessment: POD # 3 after resection of cecum and resection left colon mass as above. Sedated Plan Plan: Monitor labs. Hold Ativan and make it PRN.
[2022-09-26 04:41] LABS: BASOPHILS % (AUTO) 0.3 % (0.2-1.0); EOSINOPHILS # (AUTO) 0.2 x10^3/uL (0.0-0.2); EOSINOPHILS % (AUTO) 3.5 % (0.9-2.9); HEMATOCRIT 25.6 % (42.0-54.0); LYMPHOCYTES # (AUTO) 0.6 X10^3/uL (1.3-2.9); LYMPHOCYTES % (AUTO) 7.9 % (21.0-51.0); MEAN CORPUSCULAR HEMOGLOBIN 29.8 pg (27.0-34.0); MEAN PLATELET VOLUME 7.4 fL (7.4-11.0); MONOCYTES # (AUTO) 0.5 x10^3/uL (0.3-0.8); MONOCYTES % (AUTO) 7.2 % (0.0-13.0); NEUTROPHILS # (AUTO) 5.8 x10^3/uL (2.2-4.8); NEUTROPHILS % (AUTO) 81.1 % (42.0-75.0); RED BLOOD COUNT 3.01 X10^6/uL (4.7-6.0); RED CELL DISTRIBUTION WIDTH 17.7 % (11.6-16.5); WHITE BLOOD COUNT 7.2 X10^3/uL (3.6-10.0)
[2022-09-26 04:45] LABS: BLOOD UREA NITROGEN 23 mg/dL (7-18); CALCIUM 7.4 mg/dL (8.5-10.1); CARBON DIOXIDE 26.3 mmol/L (21-32); CHLORIDE 107 mmol/L (98-107); SODIUM 143 mmol/L (136-145); eGFR NON BLACK RACES 41 (>60)
[2022-09-26] MEDS: LR 1,000 ML IV 1,000 ML IV SCH ×2 (05:20→13:32)
[2022-09-26] MEDS: ZOSYN VIAL 3.375 GRAMS 3.375 G in NS 100 ML IV 100 ML IV SCH ×3 (05:20→21:10)
[2022-09-26] MEDS: PROTONIX INJ 40 MG VIAL IVP SCH (08:34)
[2022-09-26] MEDS: TOPROL XL PO SCH (08:34)
[2022-09-26] MEDS ORDERED: MICRO K EXTEN CAP 10 MEQ PO PRN (10:09)
[2022-09-26] MEDS ORDERED: POTASSIUM CHL 40 MEQ/NS 0.45% 500 ML IV PRN (10:09)
[2022-09-26] MEDS ORDERED: K-DUR TAB 20 MEQ PO PRN (10:09)
[2022-09-26] MEDS ORDERED: POTASSIUM CHLORIDE LIQ 20 MEQ UDC PO PRN (10:09)
[2022-09-26] MEDS ORDERED: NS IV NR ×2 (11:00)
[2022-09-26] MEDS ORDERED: POTASSIUM CHLORIDE IV NR ×2 (11:00)
[2022-09-26] MEDS: DILAUDID INJ IVP PRN ×2 (11:35→21:11)
[2022-09-26] MEDS ORDERED: NS 250 ML IV 250 ML IV ONE (20:40)
[2022-09-26] MEDS: LOVENOX INJ 30 MG SYR SC SCH (21:10)
--- NOTE | 2022-09-26 22:33 | NOTE.SOAP ---
Soap Note Note for Day of Date of Exam: 09/26/22 Subjective Data Subjective Data: POD # 4 after resection of perforated cecum and resection of obstructing left colon cancer with end colostomy. Remains sedated after holding Ativan which was given q 6 Hr for 24r hours due to acute confusion. Otherwise appears stable. Objective Data Temperature: 98.0 F Pulse Rate: 97 Respiratory Rate: 20 Blood Pressure: 116/59 O2 Sat by Pulse Oximetry: 100 Objective Data: Abdomen soft . Dressing intact. Hgb=9.0, K=3.2, Cr=1.7, WBC=7.2 Assessment Assessment: S/P colon resection as above, remains sedated, hypokalemic Plan Plan: IV K+ replacement , labs in AM , Will start diet when more awake.
[2022-09-27] MEDS: LR 1,000 ML IV 1,000 ML IV SCH ×4 (01:52→21:02)
[2022-09-27] MEDS: NS 250 ML IV 250 ML IV PRN (03:07)
[2022-09-27] MEDS: DILAUDID INJ IVP PRN ×2 (03:08→19:54)
[2022-09-27] MEDS: ZOSYN VIAL 3.375 GRAMS 3.375 G in NS 100 ML IV 100 ML IV SCH ×3 (05:09→21:01)
[2022-09-27] MEDS: PROTONIX INJ 40 MG VIAL IVP SCH (08:26)
[2022-09-27] MEDS: TOPROL XL PO SCH (08:26)
[2022-09-27 11:09] LABS: BLOOD UREA NITROGEN 16 mg/dL (7-18); CALCIUM 7.6 mg/dL (8.5-10.1); CARBON DIOXIDE 28.2 mmol/L (21-32); CHLORIDE 108 mmol/L (98-107); CREATININE 1.48 mg/dL (0.70-1.30); SODIUM 145 mmol/L (136-145); eGFR NON BLACK RACES 48 (>60)
[2022-09-27] MEDS: POTASSIUM CHL 60 MEQ/NS 0.45% 500 ML IV PRN (13:09)
[2022-09-27] MEDS ORDERED: ZOFRAN INJ 4 MG VIAL IVP ONE (16:11)
[2022-09-27] MEDS ORDERED: ZOFRAN INJ 4 MG VIAL ONE (16:14)
--- NOTE | 2022-09-27 16:59 | DR.OPNOTE ---
OP NOTE Pre-Op Diagnosis: Pneumoperitoneum and acute abdomen Post-Op Diagnosis: same Procedure Date Date Of Procedure: 09/22/22 Procedure: PROCEDURE: Laparoscopy converted to laparotomy with right colectomy and ILEO-COLIC anastomosis and left cara- colectomy with end colostomy NARRATIVE : The patient was taken to the operative suite and placed in the supine position. General endotracheal anesthesia induced and the entire abdomen was prepped and draped in sterile fashion. Time out for the procedure obtained. A 5 mm incision was made above the umbilicus in the midline and a 5 mm trocar used to enter the abdominal cavity. The abdomen was insufflated to 15 mm of mercury with carbon dioxide. Under direct vision a 5 mm trocar was placed in the anterior axillary line jail between the costal margin and the iliac crest On inspection there was a minimum amount of cloudy fluid in the pelvis. The left colon appear to be intact with no obvious dilatation. On moving to the right side the cecum appeared to be significantly dilated but there was no obvious perforations seen. For this reason we elected to proceed to laparotomy. Laparoscopic trocars removed and a midline incision made extending from above the umbilicus to below the umbilicus with a #10 knife blade dividing the fascia with the knife blade and opening the peritoneum with Metzenbaum scissors. Incision completed with electrocautery and the [place] retractor placed. Starting from the pelvis there was no obvious perforation of the sigmoid or rectal portion of the colon. I palpated a mass in the mid left colon and there was a significant dilatation of the mid transverse colon over to the right side. Once I mobilized the right colon out of the pelvis there was obvious leaking from a perforation in this very large cecum posteriorly with stool contamination of the right abdomen . This perforation was controlled with a figure eight suture of 2-0 silk. The white line of Toldt was taken down along the right colon , mobilizing it medially. The ileum was divided with one fire of the RAFA stapler just beyond the ileo-cecal valve. The right colon divided with two fires of the RAFA stapler .The mesentery of the right colon divided between hemostats and 2-silk ties and the specimen removed and sent for permanent pathology. The ileum and right colon approximated side to side with interrupted 3-0 silk sutures and each limb of the bowel clamped. Both ends of the bowel opened with electrocautery and the RAFA stapler used to create an anastomosis. The remaining defect closed with one fire the RAFA stapler and the mesentery closed with running 3-0 Vicryl The white line of Toldt of the left colon was taken down sharply mobilizing the left colon all the way to the splenic flexure with blunt and sharp dissection. RAFA stapler used to divide the sigmoid colon and the left colon. The mesentery of this portion of bowel clamped between hemostats, divided and tied with 3-0 silk sutures . This portion of the bowel passed off and sent to pathology. The colon mass was marked with one silk suture. Splenic flexure of the colon was mobilized more . A panel of skin removed over the left abdominal wall lateral to the rectus sheath approximately 3 cm in diameter. Cruciate incision made through the external oblique fascia and hemostat was used to penetrate through the peritoneum . This opening widened to three-fingers breadth and the left colon brought through this opening and secured to the peritoneum with interrupted silk suture ligatures . The abdomen irrigated with saline . There was no active bleeding. The fascia closed with looped #1 PDS suture in running fashion and the skin closed loosely with skin [place]. The skin was not completely closed because there is a high risk of wound infection. The staple line removed from the colon and the colostomy created by approximating the full thickness of the bowel to the subdermal skin layer with interrupted 4-0 Vicryl sutures . Colostomy appliance applied. Silver cell dressing applied to the midline incision. Patient extubated and taken to the ICU for continued care. . Type of Anesthesia: General Anesthetic w/ETT Findings: Obstructing mass of the left colon with severe dilatation of the right colon and cecal perforation with contamination of stool Specimen/Pathology: terminal ileum and right colon , left colon including obstructing Mass Type of Fluids Used:: Lactated Ringers EBL: < 200 cc Cultures: yes Complications:: none Needle/Sponge Count:: correct Disposition/Condition: Pt. tolerated procedure without difficulty. Extubated in the and taken to the ICU in stable condition.
--- NOTE | 2022-09-27 17:48 | DR.OPNOTE ---
OP NOTE Pre-Op Diagnosis: Patient confused, pulled out all IV access Post-Op Diagnosis: same Procedure Date Date Of Procedure: 09/24/22 Procedure: PROCEDURE: failed attempt at left subclavian vein triple Lumen access converted to right femoral vein triple Lumen access NARRATIVE : This patient is status post left cara-colectomy and end colostomy and resection of a perforated cecum with reanastomosis secondary to obstructing left colon cancer. He has done well but became confused and pulled out all of his IV access and opened his colostomy. He was kept in restraints and we attempted to place a left subclavian vein triple Lumen catheter. I could obtain blood return but the wire would not pass. The right groin was prepped and draped in sterile fashion. The skin overlying the right femoral vein infiltrated with 1 % Xylocaine and a 16 gauge needle used to puncture the right femoral vein and a 0.035 inch guide wire placed without difficulty. Incision made over the guide wire at the skin edge with a # 11 knife edge and a dilator placed over the guide wire into the right femoral vein. Dilator removed and the triple lumen catheter placed over the guide wire into the right femoral vein on into the right iliac vein. Guide wire removed. The catheter secured to the skin and all ports were aspirated of blood and flushed with heparinized saline . Post procedure chest x-ray showed no pneumothorax. Type of Anesthesia: Local (1 % Xylocaine) Findings: attempted left subclavian vein access in this confused patient. Could obtain blood return but wire would not pass Type of Fluids Used:: Lactated Ringers EBL: minimal Complications:: none Needle/Sponge Count:: correct Disposition/Condition: Pt. tolerated procedure without difficulty.Patient remained in the ICU in stable condition after administration of IV Ativan.
[2022-09-27] MEDS: LOVENOX INJ 30 MG SYR SC SCH (21:01)
--- NOTE | 2022-09-27 23:30 | NOTE.SOAP ---
Soap Note Note for Day of Date of Exam: 09/27/22 Subjective Data Subjective Data: POD # 5 after resection of left colon cancer and end colostomy and resection perforated cecum with ileo-colic anastomosis. Held around the clock Ativan. More alert but has bouts on confusion but no uncooperatrive like 09/24. Thick sputum Colostomy functioning .Still hypo kalemic Objective Data Temperature: 98.1 F Pulse Rate: 94 Respiratory Rate: 18 Blood Pressure: 144/67 O2 Sat by Pulse Oximetry: 99 Objective Data: Abdomen soft, colostomy pink and functioning . K+= 2.9 this AM . Cr=1.48 Incision viewed and is clean and dry. Assessment Assessment: Bowel function returning. Started on diet, thick sputum. Creatinine is improving Plan Plan: Pulmonary toilet, CXR in AM, labs in AM, Await pathology
[2022-09-28] MEDS: LR 1,000 ML IV 1,000 ML IV SCH (05:03)
[2022-09-28] MEDS: ZOSYN VIAL 3.375 GRAMS 3.375 G in NS 100 ML IV 100 ML IV SCH ×3 (05:04→21:26)
[2022-09-28 05:14] LABS: BASOPHILS % (AUTO) 0.3 % (0.2-1.0); EOSINOPHILS # (AUTO) 0.2 x10^3/uL (0.0-0.2); EOSINOPHILS % (AUTO) 3.2 % (0.9-2.9); HEMATOCRIT 26.5 % (42.0-54.0); HEMOGLOBIN 9.2 g/dL (13.5-18.0); LYMPHOCYTES # (AUTO) 0.7 X10^3/uL (1.3-2.9); LYMPHOCYTES % (AUTO) 10.5 % (21.0-51.0); MEAN CORPUSCULAR HEMOGLOBIN 29.3 pg (27.0-34.0); MEAN CORPUSCULAR HGB CONC 34.7 g/dL (33.0-35.0); MEAN CORPUSCULAR VOLUME 84.6 fL (80.0-100.0); MEAN PLATELET VOLUME 7.7 fL (7.4-11.0); MONOCYTES # (AUTO) 0.5 x10^3/uL (0.3-0.8); MONOCYTES % (AUTO) 7.1 % (0.0-13.0); NEUTROPHILS # (AUTO) 5.2 x10^3/uL (2.2-4.8); NEUTROPHILS % (AUTO) 78.9 % (42.0-75.0); RED BLOOD COUNT 3.13 X10^6/uL (4.7-6.0); RED CELL DISTRIBUTION WIDTH 16.8 % (11.6-16.5); WHITE BLOOD COUNT 6.5 X10^3/uL (3.6-10.0)
[2022-09-28 05:16] LABS: BLOOD UREA NITROGEN 15 mg/dL (7-18); CALCIUM 7.6 mg/dL (8.5-10.1); CARBON DIOXIDE 25.8 mmol/L (21-32); CHLORIDE 107 mmol/L (98-107); CREATININE 1.49 mg/dL (0.70-1.30); SODIUM 144 mmol/L (136-145); eGFR NON BLACK RACES 48 (>60)
[2022-09-28] MEDS: TOPROL XL PO SCH (08:33)
[2022-09-28] MEDS: POTASSIUM CHL 60 MEQ/NS 0.45% 500 ML IV PRN (08:33)
[2022-09-28] MEDS: PROTONIX INJ 40 MG VIAL IVP SCH (08:33)
[2022-09-28] MEDS: MAGNESIUM SULFATE 1 GRAM/100 mL PREMIX 1 G/100 ML BAG IV PRN ×2 (08:33→09:50)
[2022-09-28] MEDS: LOVENOX INJ 30 MG SYR SC SCH (21:22)
[2022-09-28] MEDS: K-RIDER 10 MEQ/NS 100 ML 10 MEQ/100 ML BAG IV PRN ×2 (21:23→22:29)
[2022-09-29] MEDS: ZOSYN VIAL 3.375 GRAMS 3.375 G in NS 100 ML IV 100 ML IV SCH ×3 (05:18→21:22)
[2022-09-29] MEDS: PROTONIX INJ 40 MG VIAL IVP SCH (09:01)
[2022-09-29] MEDS: TOPROL XL PO SCH (09:01)
[2022-09-29] MEDS: MAGNESIUM SULFATE 1 GRAM/100 mL PREMIX 1 G/100 ML BAG IV PRN ×2 (10:32→11:33)
[2022-09-29] MEDS: K-RIDER 10 MEQ/NS 100 ML 10 MEQ/100 ML BAG IV PRN ×2 (12:39→13:51)
[2022-09-29] MEDS: DILAUDID INJ IVP PRN ×2 (13:51→21:23)
[2022-09-29] MEDS: NS 250 ML IV 250 ML IV PRN (21:22)
[2022-09-29] MEDS: LOVENOX INJ 30 MG SYR SC SCH (21:23)
--- NOTE | 2022-09-30 01:34 | NOTE.SOAP ---
Soap Note Note for Day of Date of Exam: 09/30/22 Subjective Data Subjective Data: S/p laparotomy for obstruction of left colon with mass and perforation of the cecum. Objective Data Temperature: 97.8 F Pulse Rate: 83 Respiratory Rate: 21 Blood Pressure: 131/62 O2 Sat by Pulse Oximetry: 100 Objective Data: Continues to improve. Givens out . Improving. Ostomy functioning Assessment Assessment: S/P colon resection with ostomy Plan Plan: check labs in AM.
[2022-09-30] MEDS: ZOSYN VIAL 3.375 GRAMS 3.375 G in NS 100 ML IV 100 ML IV SCH ×3 (05:36→21:00)
[2022-09-30 05:40] LABS: MAGNESIUM 1.8 mg/dL (2.0-2.9)
[2022-09-30 06:00] LABS: BLOOD UREA NITROGEN 9 mg/dL (7-18); CARBON DIOXIDE 23.9 mmol/L (21-32); CREATININE 1.29 mg/dL (0.70-1.30); eGFR NON BLACK RACES 56 (>60)
[2022-09-30 06:02] LABS: CHLORIDE 108 mmol/L (98-107); SODIUM 141 mmol/L (136-145)
[2022-09-30] MEDS: KLOR-CON PO PRN (06:12)
[2022-09-30] MEDS: MAGNESIUM SULFATE 1 GRAM/100 mL PREMIX 1 G/100 ML BAG IV PRN ×2 (06:42→08:02)
[2022-09-30] MEDS: PROTONIX INJ 40 MG VIAL IVP SCH (08:01)
[2022-09-30] MEDS: TOPROL XL PO SCH (08:02)
--- NOTE | 2022-09-30 14:59 | NOTE.SOAP ---
Soap Note Note for Day of Date of Exam: 09/30/22 Subjective Data Subjective Data: Doing well after colon resection for obstruction and perforation of cecum. no longer confused. Poor po intake. Objective Data Temperature: 98.7 F Pulse Rate: 81 Respiratory Rate: 20 Blood Pressure: 152/66 O2 Sat by Pulse Oximetry: 100 Objective Data: Abdomen soft and benign. Incision clean and dry. Assessment Assessment: S/P colon resection Plan Plan: Plan discharge soon with Home Health or SNF.
[2022-09-30] MEDS: LOVENOX INJ 30 MG SYR SC SCH (21:00)
[2022-09-30] MEDS: K-RIDER 10 MEQ/NS 100 ML 10 MEQ/100 ML BAG IV PRN ×2 (21:42→23:10)
[2022-10-01] MEDS: KLOR-CON PO PRN ×3 (02:04→20:52)
[2022-10-01] MEDS: ZOSYN VIAL 3.375 GRAMS 3.375 G in NS 100 ML IV 100 ML IV SCH (05:05)
[2022-10-01 05:15] LABS: BASOPHILS % (AUTO) 0.4 % (0.2-1.0); EOSINOPHILS # (AUTO) 0.2 x10^3/uL (0.0-0.2); EOSINOPHILS % (AUTO) 2.5 % (0.9-2.9); HEMATOCRIT 25.2 % (42.0-54.0); HEMOGLOBIN 8.8 g/dL (13.5-18.0); LYMPHOCYTES # (AUTO) 0.8 X10^3/uL (1.3-2.9); LYMPHOCYTES % (AUTO) 9.4 % (21.0-51.0); MEAN CORPUSCULAR HEMOGLOBIN 29.4 pg (27.0-34.0); MEAN CORPUSCULAR HGB CONC 34.8 g/dL (33.0-35.0); MEAN CORPUSCULAR VOLUME 84.5 fL (80.0-100.0); MONOCYTES # (AUTO) 0.3 x10^3/uL (0.3-0.8); MONOCYTES % (AUTO) 3.9 % (0.0-13.0); NEUTROPHILS # (AUTO) 7.1 x10^3/uL (2.2-4.8); NEUTROPHILS % (AUTO) 83.8 % (42.0-75.0); RED BLOOD COUNT 2.99 X10^6/uL (4.7-6.0); WHITE BLOOD COUNT 8.4 X10^3/uL (3.6-10.0)
[2022-10-01 05:25] LABS: BLOOD UREA NITROGEN 8 mg/dL (7-18); CARBON DIOXIDE 26.1 mmol/L (21-32); CHLORIDE 106 mmol/L (98-107); CREATININE 1.36 mg/dL (0.70-1.30); MAGNESIUM 1.9 mg/dL (2.0-2.9); SODIUM 139 mmol/L (136-145); eGFR NON BLACK RACES 53 (>60)
[2022-10-01] MEDS: PROTONIX INJ 40 MG VIAL IVP SCH (09:05)
[2022-10-01] MEDS: TOPROL XL PO SCH (09:05)
--- NOTE | 2022-10-01 12:07 | NOTE.SOAP ---
Soap Note Note for Day of Date of Exam: 10/01/22 Subjective Data Subjective Data: Status post resection of obstructing mass of the left colon, presumed to be cancer and right hemicolectomy for perforated cecum. Doing better . but remains weak. Eating a little better. Objective Data Temperature: 98.6 F Pulse Rate: 86 Respiratory Rate: 25 Blood Pressure: 126/60 O2 Sat by Pulse Oximetry: 100 Objective Data: Anbomen benign, good looking functional ostomy. Abdominal incision looks good. Assessment Assessment: As above, slow improvement Plan Plan: Arrange SNF stay.
[2022-10-01] MEDS: MAGNESIUM SULFATE 1 GRAM/100 mL PREMIX 1 G/100 ML BAG IV PRN ×2 (13:29→14:44)
[2022-10-01] MEDS: PERCOCET TAB 5/325 MG PO PRN (15:12)
--- NOTE | 2022-10-01 16:12 | NOTE.SOAP ---
Soap Note Note for Day of Date of Exam: 09/28/22 Subjective Data Subjective Data: Doing well. Confusion continues to clear. Stable. Dressing intact . Colostomy functioning. Objective Data Temperature: 98.0 F Pulse Rate: 93 Respiratory Rate: 25 Blood Pressure: 155/65 O2 Sat by Pulse Oximetry: 97 Objective Data: awake and alert. Taking small amount of PO diet. Abdominal incision without drainage. Assessment Assessment: s/p resection of left colon mass, presumed cancer and resection of perforated cecum. Plan Plan: Continue current care. Placement.
[2022-10-01] MEDS: LOVENOX INJ 30 MG SYR SC SCH (20:53)
[2022-10-02] MEDS: PROTONIX INJ 40 MG VIAL IVP SCH (09:11)
[2022-10-02] MEDS: TOPROL XL PO SCH (09:11)
--- NOTE | 2022-10-02 13:07 | NOTE.SOAP ---
Soap Note Note for Day of Date of Exam: 10/02/22 Subjective Data Subjective Data: Continues to improve after resection of perforated ceceum and left colon obstructing mass. Pathology still pending. Much improved but weak. No longer confused. Central portion of mid line wound opened and drained of pus yesterday afternoon. Fascia is intact . Eating better. Objective Data Temperature: 98.5 F Pulse Rate: 82 Respiratory Rate: 18 Blood Pressure: 109/57 O2 Sat by Pulse Oximetry: 96 Objective Data: Awake and alert. Lungs clear. VSS. Wound much sleeping room cleaner, fascia intact.Hgb=8.8, K+= 3.9, Cr=1.39 Assessment Assessment: S/P bowel resection, doing well. Plan Plan: Searching for SNF placement. Await pathology. Draw CEA.
[2022-10-02] MEDS: ATIVAN INJ 2 MG VIAL IM PRN (20:51)
[2022-10-02] MEDS: LOVENOX INJ 30 MG SYR SC SCH (21:00)
[2022-10-03] MEDS: TOPROL XL PO SCH (09:39)
[2022-10-03] MEDS: PROTONIX INJ 40 MG VIAL IVP SCH (09:41)
--- NOTE | 2022-10-03 10:32 | NOTE.SOAP ---
Soap Note Note for Day of Date of Exam: 10/03/22 Subjective Data Subjective Data: see previous notes , s/p resection of perforated cecum and obstructing left colon mass with end colostomy. Patient did develop wound infection currently being treated with wet to dry dressings. Fascia is intact . He is weak but doing well. Pathology is pending . Objective Data Temperature: 97.5 F Pulse Rate: 91 Respiratory Rate: 18 Blood Pressure: 109/56 O2 Sat by Pulse Oximetry: 98 Objective Data: Ostomy pink and functioning. Wound of mid line abdomen is cleaning up .Pathology pending Assessment Assessment: S/P colon resection. Pathology pending Plan Plan: await pathology, plan SNF referral.
[2022-10-03 13:22] VITALS: BP 113/59
[2022-10-03] MEDS: PERCOCET TAB 5/325 MG PO PRN (13:45)
--- NOTE | 2022-10-03 15:05 | W.DIS.FURT ---
Summary of Discharge Discharge Summary of Date Date of Exam: 10/03/22 Admission Date Date of Admission: 09/22/22 Admission Diagnosis Patient Problems (Updated 10/03/22 @ 14:46 by Jeb Garza) Bowel perforation (Acute) K63.1 Colonic mass (Acute) K63.89 Hypokalemia (Acute) E87.6 Hospital Course: This 86 year old male presented to the emergency room on September 22 complaining of several day history of abdominal pain. Abdominal films and CT scan showed evidence of pneumoperitoneum with questionable mass of the left colon with obstruction. He had laparotomy with resection of the perforated cecum secondary to the obstructing left colon mass with ileo-colic anastaomosis . He also had a left cara-colectomy to remove the mass with end colostomy. He had confusion on post-op day # 3. The confusion has since cleared and the patient is tolerating a diet. Antibiotics have been discontinued. His creatinine was elevated greater than 2 on admission and is now 1.3 . Overall he is weak. On 10/01 he was discovered to have a wound infection . The midline incision of the abdomen was opened and he is having normal saline wet to dry dressings daily. Fascia is intact . Pathology revealed a T3 N1 colon cancer . He will be discharged today to a alf facility on his usual home medications plus Percocet tablets 1 every 6 hoursPRN Pain. He will follow up with me in one week. He will be presented to [facility] or conference in anticipation of necessity for chemotherapy. If he does well we can discuss colostomy take down in the future. Vital Signs: Vital Signs (72 hours) 10/01/22 12:06 10/01/22 16:12 10/02/22 13:07 Temperature 98.6 F 98.0 F 98.5 F Pulse Rate 86 93 H 82 Pulse Rate [Brachial] Respiratory Rate 25 H 25 H 18 Blood Pressure 126/60 155/65 109/57 Blood Pressure [Left Arm] Blood Pressure [Right Arm] O2 Sat by Pulse Oximetry 100 97 96 Oxygen Delivery Method Oxygen Flow Rate 09/30/22 14:57 10/03/22 10:31 09/30/22 16:58 Temperature 98.7 F 97.5 F L 98.3 F Pulse Rate 81 91 H Pulse Rate [Brachial] Respiratory Rate 20 18 Blood Pressure 152/66 109/56 Blood Pressure [Left Arm] Blood Pressure [Right Arm] O2 Sat by Pulse Oximetry 100 98 Oxygen Delivery Method Oxygen Flow Rate 09/30/22 15:00 09/30/22 15:00 09/30/22 16:00 Temperature Pulse Rate 82 Pulse Rate [Brachial] Respiratory Rate 23 Blood Pressure 141/64 150/67 Blood Pressure [Left Arm] Blood Pressure [Right Arm] O2 Sat by Pulse Oximetry 98 Oxygen Delivery Method Oxygen Flow Rate 09/30/22 16:00 09/30/22 17:00 09/30/22 17:00 Temperature 98.3 F Pulse Rate 85 84 Pulse Rate [Brachial] Respiratory Rate 21 23 Blood Pressure 156/68 Blood Pressure [Left Arm] Blood Pressure [Right Arm] O2 Sat by Pulse Oximetry 100 100 Oxygen Delivery Method Oxygen Flow Rate 09/30/22 18:00 09/30/22 18:00 09/30/22 19:00 Temperature Pulse Rate 90 78 Pulse Rate [Brachial] Respiratory Rate 20 24 Blood Pressure 150/65 129/67 Blood Pressure [Left Arm] Blood Pressure [Right Arm] O2 Sat by Pulse Oximetry 100 98 Oxygen Delivery Method Oxygen Flow Rate 09/30/22 19:00 09/30/22 20:00 09/30/22 21:00 Temperature 98.5 F Pulse Rate 82 87 Pulse Rate [Brachial] Respiratory Rate 25 H 26 H Blood Pressure 146/65 138/65 Blood Pressure [Left Arm] Blood Pressure [Right Arm] O2 Sat by Pulse Oximetry 98 100 Oxygen Delivery Method Room Air Oxygen Flow Rate 09/30/22 22:00 09/30/22 23:00 10/01/22 00:00 Temperature 99.0 F Pulse Rate 82 84 87 Pulse Rate [Brachial] Respiratory Rate 24 22 24 Blood Pressure 130/62 123/58 135/63 Blood Pressure [Left Arm] Blood Pressure [Right Arm] O2 Sat by Pulse Oximetry 99 99 99 Oxygen Delivery Method Oxygen Flow Rate 09/30/22 21:40 10/01/22 01:00 10/01/22 02:00 Temperature Pulse Rate 84 87 Pulse Rate [Brachial] Respiratory Rate 21 22 Blood Pressure 119/62 133/61 Blood Pressure [Left Arm] Blood Pressure [Right Arm] O2 Sat by Pulse Oximetry 99 99 Oxygen Delivery Method Room Air Oxygen Flow Rate 10/01/22 03:00 10/01/22 04:00 10/01/22 05:00 Temperature 99.0 F Pulse Rate 87 90 88 Pulse Rate [Brachial] Respiratory Rate 24 22 24 Blood Pressure 124/64 116/58 117/59 Blood Pressure [Left Arm] Blood Pressure [Right Arm] O2 Sat by Pulse Oximetry 99 100 100 Oxygen Delivery Method Oxygen Flow Rate 10/01/22 06:00 10/01/22 07:00 10/01/22 08:00 Temperature 98.6 F 98.6 F Pulse Rate 87 89 86 Pulse Rate [Brachial] Respiratory Rate 22 23 25 H Blood Pressure 127/61 112/56 126/60 Blood Pressure [Left Arm] Blood Pressure [Right Arm] O2 Sat by Pulse Oximetry 100 100 100 Oxygen Delivery Method Oxygen Flow Rate 10/01/22 08:48 10/01/22 07:00 10/01/22 09:00 Temperature Pulse Rate 89 Pulse Rate [Brachial] Respiratory Rate 27 H Blood Pressure 142/65 Blood Pressure [Left Arm] Blood Pressure [Right Arm] O2 Sat by Pulse Oximetry 100 Oxygen Delivery Method Room Air Room Air Oxygen Flow Rate 10/01/22 10:00 10/01/22 11:00 10/01/22 12:00 Temperature 98.3 F Pulse Rate 89 94 H 91 H Pulse Rate [Brachial] Respiratory Rate 27 H 24 32 H Blood Pressure 120/58 129/61 111/56 Blood Pressure [Left Arm] Blood Pressure [Right Arm] O2 Sat by Pulse Oximetry 100 100 100 Oxygen Delivery Method Oxygen Flow Rate 10/01/22 13:00 10/01/22 14:00 10/01/22 15:00 Temperature Pulse Rate 89 85 90 Pulse Rate [Brachial] Respiratory Rate 30 H 19 28 H Blood Pressure 121/86 149/64 142/62 Blood Pressure [Left Arm] Blood Pressure [Right Arm] O2 Sat by Pulse Oximetry 100 100 100 Oxygen Delivery Method Oxygen Flow Rate 10/01/22 16:00 10/01/22 15:12 10/01/22 16:12 Temperature 98.6 F Pulse Rate 90 Pulse Rate [Brachial] Respiratory Rate 28 H 24 24 Blood Pressure 142/62 Blood Pressure [Left Arm] Blood Pressure [Right Arm] O2 Sat by Pulse Oximetry 100 Oxygen Delivery Method Oxygen Flow Rate 10/01/22 20:00 10/01/22 19:00 10/01/22 21:00 Temperature 98.5 F Pulse Rate Pulse Rate [Brachial] 54 L Respiratory Rate 20 Blood Pressure Blood Pressure [Left Arm] 142/54 Blood Pressure [Right Arm] O2 Sat by Pulse Oximetry 99 Oxygen Delivery Method Nasal Cannula Room Air Room Air Oxygen Flow Rate 3 10/02/22 00:00 10/02/22 04:00 10/02/22 07:00 Temperature 98.5 F 98.3 F Pulse Rate Pulse Rate [Brachial] 82 83 Respiratory Rate 18 Blood Pressure Blood Pressure [Left Arm] 109/59 133/60 Blood Pressure [Right Arm] O2 Sat by Pulse Oximetry 96 97 Oxygen Delivery Method Room Air Nasal Cannula Room Air Oxygen Flow Rate 3 10/02/22 08:15 10/02/22 08:00 10/02/22 12:00 Temperature 98.8 F 98.6 F Pulse Rate Pulse Rate [Brachial] 82 91 H Respiratory Rate 18 18 Blood Pressure Blood Pressure [Left Arm] 120/60 116/61 Blood Pressure [Right Arm] O2 Sat by Pulse Oximetry 96 98 Oxygen Delivery Method Room Air Nasal Cannula Nasal Cannula Oxygen Flow Rate 3 3 10/02/22 16:00 10/02/22 21:36 10/02/22 20:00 Temperature 98.3 F 98.4 F Pulse Rate Pulse Rate [Brachial] 91 H 91 H Respiratory Rate 18 18 Blood Pressure Blood Pressure [Left Arm] 138/64 133/60 Blood Pressure [Right Arm] O2 Sat by Pulse Oximetry 99 98 Oxygen Delivery Method Nasal Cannula Room Air Room Air Oxygen Flow Rate 3 10/02/22 19:00 10/03/22 00:00 10/03/22 04:00 Temperature 97.3 F L 100.5 F H Pulse Rate Pulse Rate [Brachial] 96 H 105 H Respiratory Rate 20 20 Blood Pressure Blood Pressure [Left Arm] Blood Pressure [Right Arm] 151/70 151/70 O2 Sat by Pulse Oximetry 95 93 L Oxygen Delivery Method Room Air Room Air Room Air Oxygen Flow Rate 10/03/22 07:00 10/03/22 08:40 10/03/22 08:00 Temperature 97.5 F L Pulse Rate Pulse Rate [Brachial] 91 H Respiratory Rate 18 Blood Pressure Blood Pressure [Left Arm] Blood Pressure [Right Arm] 109/56 O2 Sat by Pulse Oximetry 98 Oxygen Delivery Method Room Air Room Air Room Air Oxygen Flow Rate 10/03/22 12:00 Temperature 98.5 F Pulse Rate Pulse Rate [Brachial] 88 Respiratory Rate 18 Blood Pressure Blood Pressure [Left Arm] Blood Pressure [Right Arm] 113/59 O2 Sat by Pulse Oximetry 99 Oxygen Delivery Method Room Air Oxygen Flow Rate Labs: Laboratory Last Values WBC 8.4 X10^3/uL (3.6-10.0) 10/01/22 04:45 RBC 2.99 X10^6/uL (4.7-6.0) L 10/01/22 04:45 Hgb 8.8 g/dL (13.5-18.0) L 10/01/22 04:45 Hct 25.2 % (42.0-54.0) L 10/01/22 04:45 MCV 84.5 fL (80.0-100.0) 10/01/22 04:45 MCH 29.4 pg (27.0-34.0) 10/01/22 04:45 MCHC 34.8 g/dL (33.0-35.0) 10/01/22 04:45 RDW 17.0 % (11.6-16.5) H 10/01/22 04:45 Plt Count 294 X10^3/uL (150.0-450.0) 10/01/22 04:45 Plt Count Comment Adequate (ADEQUATE) 09/21/22 17:00 MPV 8.0 fL (7.4-11.0) 10/01/22 04:45 Neut % (Auto) 83.8 % (42.0-75.0) H 10/01/22 04:45 Lymph % (Auto) 9.4 % (21.0-51.0) L 10/01/22 04:45 [place] % (Auto) 3.9 % (0.0-13.0) 10/01/22 04:45 Eos % (Auto) 2.5 % (0.9-2.9) 10/01/22 04:45 Baso % (Auto) 0.4 % (0.2-1.0) 10/01/22 04:45 Neut # (Auto) 7.1 x10^3/uL (2.2-4.8) H 10/01/22 04:45 Lymph # (Auto) 0.8 X10^3/uL (1.3-2.9) L 10/01/22 04:45 [place] # (Auto) 0.3 x10^3/uL (0.3-0.8) 10/01/22 04:45 Eos # (Auto) 0.2 x10^3/uL (0.0-0.2) 10/01/22 04:45 Baso # (Auto) 0.0 X10^3/uL (0.0-0.1) 10/01/22 04:45 Absolute Nucleated RBC 0.0 /100WBC 10/01/22 04:45 Total Counted 100 09/21/22 17:00 Neutrophils % (Manual) 65 % (39-76) 09/21/22 17:00 Band Neutrophils % 14 % (0-10) H 09/21/22 17:00 Lymphocytes % (Manual) 14 % (13-43) 09/21/22 17:00 Monocytes % (Manual) 7 % (4-9) 09/21/22 17:00 Plt Morphology Comment Normal (NORMAL) 09/21/22 17:00 RBC Morphology Abnormal (NORMAL) 09/21/22 17:00 Poikilocytosis Slight A 09/21/22 17:00 Anisocytosis Slight A 09/21/22 17:00 Sodium 139 mmol/L (136-145) 10/01/22 04:45 Corrected Sodium TNP 10/01/22 04:45 Potassium 3.9 mmol/L (3.5-5.1) 10/01/22 23:05 Chloride 106 mmol/L (98-107) 10/01/22 04:45 Carbon Dioxide 26.1 mmol/L (21-32) 10/01/22 04:45 BUN 8 mg/dL (7-18) 10/01/22 04:45 Creatinine 1.36 mg/dL (0.70-1.30) H 10/01/22 04:45 Est GFR (MDRD) Af Amer > 60 (>60) 10/01/22 04:45 Est GFR (MDRD) Non-Af 53 (>60) L 10/01/22 04:45 Glucose 99 mg/dL (65-99) 10/01/22 04:45 Calcium 7.0 mg/dL (8.5-10.1) L 10/01/22 04:45 Corrected Calcium 9.1 mg/dL (8.5-10.1) 09/21/22 17:00 Magnesium 2.0 mg/dL (2.0-2.9) 10/02/22 04:18 Total Bilirubin 1.00 mg/dL (0.2-1.0) 09/21/22 17:00 AST 18 Units/L (15-37) 09/21/22 17:00 ALT 9 Units/L (12-78) L 09/21/22 17:00 Alkaline Phosphatase 69 Units/L (46-116) 09/21/22 17:00 Total Protein 6.2 g/dL (6.4-8.2) L 09/21/22 17:00 Albumin 3.0 g/dL (3.4-5.0) L 09/21/22 17:00 Globulin 3.2 g/dL (2.5-4.5) 09/21/22 17:00 Albumin/Globulin Ratio 0.9 Ratio (1.1-2.1) L 09/21/22 17:00 Lipase 52 Units/L (73-393) L 09/21/22 17:00 Specimen Type Clean catch urine 09/21/22 19:42 Urine Color Yellow (YELLOW) 09/21/22 19:42 Urine Appearance Clear (CLEAR) 09/21/22 19:42 Urine pH 6.0 (5.0 - 8.0) 09/21/22 19:42 Ur Specific [place] 1.015 (1.000-1.030) 09/21/22 19:42 Urine Protein 1+ (NEGATIVE) 09/21/22 19:42 Urine Glucose (UA) Negative (NEGATIVE) 09/21/22 19:42 Urine Ketones Negative (NEGATIVE) 09/21/22 19:42 Urine Blood 2+ (NEGATIVE) 09/21/22 19:42 Urine Nitrite Negative (NEGATIVE) 09/21/22 19:42 Urine Bilirubin Negative (NEGATIVE) 09/21/22 19:42 Urine Urobilinogen Normal (NORMAL) 09/21/22 19:42 Ur Leukocyte Esterase Negative (NEGATIVE) 09/21/22 19:42 Urine RBC 3-5 /HPF (0-3) A 09/21/22 19:42 Urine WBC None seen /HPF (0-5) 09/21/22 19:42 Ur Squamous Epith Cells Rare /HPF (NEGATIVE) 09/21/22 19:42 Urine Bacteria Negative /HPF (NEGATIVE) 09/21/22 19:42 Ur Culture Indicated? No/not indicated 09/21/22 19:42 Tissue Pathology See comment. 09/22/22 10:34 Blood Type B POSITIVE 09/25/22 08:40 Antibody Screen Negative 09/25/22 08:40 Crossmatch See Detail 09/25/22 08:40 Reason For Visit: PERFORATED COLON, HYPOKALEMIA Discharge Date Discharge Date: 10/03/22 Discharge Diagnosis All Active Problems (Updated 10/03/22 @ 14:46 by Jeb Garza) Cancer of left colon (Acute) Bowel perforation (Acute) Colonic mass (Acute) Hypokalemia (Acute) COPD (chronic obstructive pulmonary disease) (Acute) Hypothyroidism (Acute) Hypertension (Acute) Hypotension (Acute) Altered mental status (Acute) Generalized weakness (Acute) Frequent falls (Acute) Dehydration (Acute) Hypokalemia (Acute) Anemia (Acute) Syncope (Acute) Generalized weakness (Acute) Plan of Treatment: Continue with present treatment and follow up plan. Pt is to keep follow up appointment as instructed and take medications as ordered. Discharge Medications Discharge Medications: nitroglycerin Allergy (Verified 09/21/22 15:07) Penicillins Allergy (Verified 09/21/22 15:07) propoxyphene [From Darvocet-N] Allergy (Verified 09/21/22 15:07) CONTINUE taking the following medications aspirin 81 mg tablet,delayed release 81 mg PO QDAY 09/21/22 [History] famotidine 40 mg tablet 40 mg PO QDAY 09/21/22 [History] levothyroxine 50 mcg tablet 50 mcg PO QDAY disorder of thyroid gland 09/21/22 [History] megestrol 40 mg tablet 40 mg PO BID 09/21/22 [History] metoprolol succinate 50 mg tablet,extended release 24 hr 50 mg PO QDAY 09/21/22 [History] olmesartan 20 mg tablet 20 mg PO QDAY 09/21/22 [History] rosuvastatin 40 mg tablet 40 mg PO HS 09/21/22 [History] famotidine 40 mg tablet 1 tab PO QDAY 09/22/22 [History] metoprolol succinate 50 mg tablet,extended release 24 hr 1 tab PO QDAY 09/22/22 [History] Discharge Disposition Assessment: see hospital course Discharge Plan Discharge Plan Hospital Course: This 86 year old male presented to the emergency room on September 22 complaining of several day history of abdominal pain. Abdominal films and CT scan showed evidence of pneumoperitoneum with questionable mass of the left colon with obstruction. He had laparotomy with resection of the perforated cecum secondary to the obstructing left colon mass with ileo-colic anastaomosis . He also had a left cara-colectomy to remove the mass with end colostomy. He had confusion on post-op day # 3. The confusion has since cleared and the patient is tolerating a diet. Antibiotics have been discontinued. His creatinine was elevated greater than 2 on admission and is now 1.3 . Overall he is weak. On 10/01 he was discovered to have a wound infection . The midline incision of the abdomen was opened and he is having normal saline wet to dry dressings daily. Fascia is intact . Pathology revealed a T3 N1 colon cancer . He will be discharged today to a alf facility on his usual home medications plus Percocet tablets 1 every 6 hoursPRN Pain. He will follow up with me in one week. He will be presented to [facility] or conference in anticipation of necessity for chemotherapy. If he does well we can discuss colostomy take down in the future. Patient Disposition: SNF Condition: Stable Health Concerns: Post Hospitalization: new medications and changes needed to prevent readmission or further decline. Pt educated and given instructions on all concerns. Care Plan Goals: Problem: Pain/Alteration in Comfort Goal: Improve/ Resolve Pain; Achieve Pain Tolerance Instructions: Take pain medications as prescribed. Contact your primary care provider if your pain is unrelieved or worsens. Follow up with primary care provider as directed. Plan of Treatment: Continue with present treatment and follow up plan. Pt is to keep follow up appointment as instructed and take medications as ordered. Assessment: see hospital course Prescription drug monitoring program results: PDMP reviewed and no concerns identified Prescriptions: New oxycodone-acetaminophen [Percocet] 5-325 mg Tablet 1 tab PO Q6H MDD 4 PRN (Reason: Pain) Qty: 30 0RF oxycodone-acetaminophen [Percocet] 5-325 mg tablet 1 tab PO Q6H MDD 4 PRNQty: 30 0RF Continued metoprolol succinate 50 mg tablet extended release 24 hr 50 mg PO QDAY Rx Instructions: take one tablet daily famotidine 40 mg tablet 40 mg PO QDAY Rx Instructions: take one tablet daily aspirin 81 mg tablet,delayed release (DR/EC) 81 mg PO QDAY Rx Instructions: take one tablet daily levothyroxine 50 mcg tablet 50 mcg PO QDAY Rx Instructions: take one tablet daily megestrol 40 mg tablet 40 mg PO BID Rx Instructions: take one tablet twice a day olmesartan 20 mg tablet 20 mg PO QDAY rosuvastatin 40 mg tablet 40 mg PO HS Rx Instructions: take one tablet at bedtime alprazolam 0.5 mg tablet 0.5 mg PO BID cholecalciferol (vitamin D3) 25 mcg (1,000 unit) tablet 1 tab PO QDAY Qty: 30 3RF Rx Instructions: take one tablet daily Discontinued hydrocodone-acetaminophen 10-325 mg tablet 1 tab PO TID PRN (Reason: Pain) Label Comments: TAKE ONE TABLET BY MOUTH THREE TIMES DAILY NEEDED FOR PAIN metoprolol succinate 50 mg tablet extended release 24 hr 1 tab PO QDAY famotidine 40 mg tablet 1 tab PO QDAY Orders to Discharge Patient Discharge Orders: Discharge (Routine); Ordered 10/03/22 Ordered By: Jeb Garza Follow ups/Referrals Follow ups/Referrals: Brady Medrano [Primary Care Provider] - (Follow up as needed.) Jeb Garza [STAFF PHYSICIAN] - 10/10/22 1:30 pm Instructions Instructions: Fall Prevention in the Home, Adult, [id number], Colostomy Home Guide, Adult, Bowel Obstruction, [id number], Hypokalemia, Colon Mass, Adult
== END 2022-10-03 15:55 | DRG 330 ==
LOC: ER 15:06 → ICU 20:07 → MED/SURG 10-01 14:42
PROVIDERS: ADMIT Surgery; ATTEND Surgery
DX: R10.84 Generalized abdominal pain; B96.29 Other Escherichia coli [E. coli] as the cause of diseases classified elsewhere; I10 Essential (primary) hypertension; K63.89 Other specified diseases of intestine; T81.41XA Infection following a procedure, superficial incisional surgical site, initial encounter; K56.690 Other partial intestinal obstruction; J44.9 Chronic obstructive pulmonary disease, unspecified; R41.82 Altered mental status, unspecified; B96.1 Klebsiella pneumoniae [K. pneumoniae] as the cause of diseases classified elsewhere; R26.89 Other abnormalities of gait and mobility; E87.6 Hypokalemia; Z53.31 Laparoscopic surgical procedure converted to open procedure; K63.1 Perforation of intestine (nontraumatic); C18.6 Malignant neoplasm of descending colon; E03.8 Other specified hypothyroidism; Z78.1 Physical restraint status

== ENCOUNTER 2022-10-16 15:17 | Observation (INO) ==
[2022-10-16 20:14] LABS: BASOPHILS # (AUTO) 0.1 X10^3/uL (0.0-0.1); BASOPHILS % (AUTO) 0.9 % (0.2-1.0); EOSINOPHILS # (AUTO) 0.5 x10^3/uL (0.0-0.2); EOSINOPHILS % (AUTO) 8.5 % (0.9-2.9); HEMOGLOBIN 7.7 g/dL (13.5-18.0); LYMPHOCYTES # (AUTO) 1.5 X10^3/uL (1.3-2.9); LYMPHOCYTES % (AUTO) 24.4 % (21.0-51.0); MEAN CORPUSCULAR HEMOGLOBIN 27.9 pg (27.0-34.0); MEAN CORPUSCULAR HGB CONC 33.6 g/dL (33.0-35.0); MEAN CORPUSCULAR VOLUME 83.2 fL (80.0-100.0); MEAN PLATELET VOLUME 6.7 fL (7.4-11.0); MONOCYTES # (AUTO) 0.3 x10^3/uL (0.3-0.8); MONOCYTES % (AUTO) 5.1 % (0.0-13.0); NEUTROPHILS # (AUTO) 3.7 x10^3/uL (2.2-4.8); NEUTROPHILS % (AUTO) 61.1 % (42.0-75.0); PLATELET COUNT 335 X10^3/uL (150.0-450.0); RED BLOOD COUNT 2.77 X10^6/uL (4.7-6.0); RED CELL DISTRIBUTION WIDTH 16.5 % (11.6-16.5)
[2022-10-16 20:25] LABS: ALANINE AMINOTRANSFERASE 7 Units/L (12-78); ALBUMIN 1.5 g/dL (3.4-5.0); ALKALINE PHOSPHATASE 60 Units/L (46-116); ASPARTATE AMINO TRANSFERASE 21 Units/L (15-37); BLOOD UREA NITROGEN 10 mg/dL (7-18); CALCIUM 7.5 mg/dL (8.5-10.1); CARBON DIOXIDE 25.1 mmol/L (21-32); CHLORIDE 108 mmol/L (98-107); COR CA(FOR HYPOALB) 9.5 mg/dL (8.5-10.1); CREATININE 1.63 mg/dL (0.70-1.30); GLUCOSE 88 mg/dL (65-99); POTASSIUM 3.1 mmol/L (3.5-5.1); SODIUM 141 mmol/L (136-145); TOTAL PROTEIN 5.4 g/dL (6.4-8.2); eGFR NON BLACK RACES 43 (>60)
[2022-10-16] MEDS: LR 1,000 ML IV 1,000 ML IV SCH (21:43)
--- NOTE | 2022-10-17 01:31 | EKG ---
Test Reason : Admission Requirment Blood Pressure : */* mmHG Vent. Rate : 74 BPM Atrial Rate : 74 BPM P-R Int : 328 ms QRS Dur : 134 ms QT Int : 444 ms P-R-T Axes : * -21 107 degrees QTc Int : 492 ms Sinus rhythm with 1st degree AV block Left ventricular hypertrophy with QRS widening and repolarization abnormality ( R in aVL , Patel pr oduct ) Abnormal ECG When compared with ECG of 21-SEP-2022 21:32, AR interval has increased Confirmed by Rk Moya ([id number]) on 10/19/2022 10:25:09 AM Referred By: Confirmed By: Rk Moya
[2022-10-17] MEDS ORDERED: POTASSIUM CHL 40 MEQ/NS 0.45% 500 ML IV PRN (08:09)
[2022-10-17] MEDS ORDERED: POTASSIUM CHL 60 MEQ/NS 0.45% 500 ML IV PRN (08:09)
[2022-10-17] MEDS ORDERED: KLOR-CON PO PRN (08:09)
[2022-10-17] MEDS ORDERED: POTASSIUM CHLORIDE LIQ 20 MEQ UDC PO PRN (08:09)
[2022-10-17] MEDS ORDERED: MICRO K EXTEN CAP 10 MEQ PO PRN (08:09)
[2022-10-17] MEDS ORDERED: K-RIDER 10 MEQ/NS 100 ML 10 MEQ/100 ML BAG IV PRN (08:09)
--- NOTE | 2022-10-17 08:09 | DR.H&P ---
H&P History & Physical for Day of: H&P Date: 10/16/22 Chief Complaint Chief Complaint: Weakness, failure to thrive Allergies Allergies Allergy/AdvReac Type Severity Reaction Status Date / Time nitroglycerin Allergy Verified 10/10/22 13:46 Penicillins Allergy Verified 10/10/22 13:46 propoxyphene Allergy Verified 10/10/22 13:46 [From Darvocet-N] History of Present Illness History of Present Illness: 86 year old male who presented several weeks ago wi th an acute abdomen with findings of an obstructing left colon cancer and perforation of the cecum requiring resection of the cecum with ileocolic anastomosis and resection of the left colon with end colostomy. His hospital course was complicated by confusion which resolved and a wound infection of the midline abdominal incision. The fascia remained intact. He did well and was [facility] Family took him to the emergency room in [place] where he was noted to be weak and mildly confused. Family noted that he was not receiving or participating in physical therapy and were concerned about his decline. Past Medical History Past Medical History: Anxiety, Arthritis, COPD, Depression, Dyslipidemia, GERD, Hypertension and Hypothyroidism Past Surgical History Surgical History: Cholecystectomy and Other Additional Surgical History: CATARACTS, BACK SURGERY Family History Family Medical History: Hypertension Social History Does patient currently use any type of tobacco product: Yes Type of Tobacco Use: Smokeless Alcohol Use: None Medications Home Medications: nitroglycerin Allergy (Verified 10/10/22 13:46) Penicillins Allergy (Verified 10/10/22 13:46) propoxyphene [From Darvocet-N] Allergy (Verified 10/10/22 13:46) Labs Result Diagrams: 10/16/22 20:02 10/16/22 20:02 Labs: Laboratory WBC 6.0 X10^3/uL (3.6-10.0) 10/16/22 20: RBC 2.77 X10^6/uL (4.7-6.0) L 10/16/22 20:02 Hgb 7.7 g/dL (13.5-18.0) L 10/16/22 20:02 Hct 23.0 % (42.0-54.0) L 10/16/22 20: MCV 83.2 fL (80.0-100.0) 10/16/22 20:02 MCH 27.9 pg (27.0-34.0) 10/16/22 20:02 MCHC 33.6 g/dL (33.0-35.0) 10/16/22 20:02 RDW 16.5 % (11.6-16.5) 10/16/22 20:02 Plt Count 335 X10^3/uL (150.0-450.0) 10/16/22 20:02 MPV 6.7 fL (7.4-11.0) L 10/16/22 20:02 Neut % (Auto) 61.1 % (42.0-75.0) 10/16/22 20: Lymph % (Auto) 24.4 % (21.0-51.0) 10/16/22 20: [place] % (Auto) 5.1 % (0.0-13.0) 10/16/22 20:02 Eos % (Auto) 8.5 % (0.9-2.9) H 10/16/22 20:02 Baso % (Auto) 0.9 % (0.2-1.0) 10/16/22 20:02 Neut # (Auto) 3.7 x10^3/uL (2.2-4.8) 10/16/22 20:02 Lymph # (Auto) 1.5 X10^3/uL (1.3-2.9) 10/16/22 20:02 [place] # (Auto) 0.3 x10^3/uL (0.3-0.8) 10/16/22 20:02 Eos # (Auto) 0.5 x10^3/uL (0.0-0.2) H 10/16/22 20:02 Baso # (Auto) 0.1 X10^3/uL (0.0-0.1) 10/16/22 20:02 Absolute Nucleated RBC 0.0 /100WBC 10/16/22 20:02 Sodium 141 mmol/L (136-145) 10/16/22 20:02 Corrected Sodium TNP 10/16/22 20:02 Potassium 3.1 mmol/L (3.5-5.1) L 10/16/22 20:02 Chloride 108 mmol/L (98-107) H 10/16/22 20:02 Carbon Dioxide 25.1 mmol/L (21-32) 10/16/22 20:02 BUN 10 mg/dL (7-18) 10/16/22 20:02 Creatinine 1.63 mg/dL (0.70-1.30) H 10/16/22 20:02 Est GFR (MDRD) Af Amer 52 (>60) L 10/16/22 20:02 Est GFR (MDRD) Non-Af 43 (>60) L 10/16/22 20:02 Glucose 88 mg/dL (65-99) 10/16/22 20:02 Calcium 7.5 mg/dL (8.5-10.1) L 10/16/22 20:02 Corrected Calcium 9.5 mg/dL (8.5-10.1) 10/16/22 20:02 Total Bilirubin 0.20 mg/dL (0.2-1.0) 10/16/22 20:02 AST 21 Units/L (15-37) 10/16/22 20:02 ALT 7 Units/L (12-78) L 10/16/22 20:02 Alkaline Phosphatase 60 Units/L (46-116) 10/16/22 20:02 Total Protein 5.4 g/dL (6.4-8.2) L 10/16/22 20:02 Albumin 1.5 g/dL (3.4-5.0) L 10/16/22 20:02 Globulin 3.9 g/dL (2.5-4.5) 10/16/22 20:02 Albumin/Globulin Ratio 0.4 Ratio (1.1-2.1) L 10/16/22 20:02 Review of Systems Constitutional: See HPI Eyes: No Symptoms Reported ENT: No Symptoms Reported Respiratory: No Symptoms Reported Cardiovascular: No Symptoms Reported Gastrointestinal: See HPI Genitourinary: No Symptoms Reported Musculoskeletal: No Symptoms Reported Skin: No Symptoms Reported Neurological: No Symptoms Reported Physical Exam Vital Signs: Temperature 98.4 F Pulse Rate [Left] 70 Respiratory Rate 20 Blood Pressure [Right Arm] 128/60 Blood Pressure [Left Arm] 151/67 Blood Pressure [Right Arm] 110/56 Blood Pressure [Left Arm] 157/67 Blood Pressure 111/70 O2 Sat by Pulse Oximetry 94 Oriented: Person and Place; negative Time Eyes: Normal Ear: Normal Nose: Normal Throat: Normal Respiratory: Clear Throughout Cardiovascular: Normal : Normal Auscultation: Bowel Sounds: Normal Palpation: Normal Tenderness: Normal Skin: Hot and Other (Midline abdominal wound with 10 x 6x2 CM opening. Fascia appears to be intact. Mild exudate ) Musculoskeletal: Normal Psychiatric: Other (mildly confused) Mood Description: Depressed Affect: Flat Speech Pattern: Slurred Assessment/Plan (1) Failure to thrive: Status: Acute Plan: Admit and evaluate (2) Cancer of left colon: Status: Acute Plan: stable , has been dealt with . Has appointment with oncologist. (3) Bowel perforation: Status: Acute Plan: stable. Has been dealt with. Review H&P Reviewed: Yes Patient was examined?: Yes
--- NOTE | 2022-10-17 08:50 | RAD ---
HISTORYSepsisSTUDYChest AP [id number]/[id number] t size is normal. Ashly are normal. Aorta is calcified and ectatic but unchanged when compared to the prior examination. Lungs are mildly hyperinflated but free of acute infiltrates. No pleural effusions are identified. Bony thorax is unremarkable.IMPRESSIONLungs mildly hyperinflated but clearElectronically signed by: HANANE CAGE (October 17, 2022 08:49:22)
[2022-10-17] MEDS: K-DUR TAB 20 MEQ PO PRN (09:54)
[2022-10-17] MEDS: MAGNESIUM SULFATE 1 GRAM/100 mL PREMIX 1 G/100 ML BAG IV PRN ×2 (09:59→11:38)
[2022-10-17] MEDS: LR 1,000 ML IV 1,000 ML IV SCH ×2 (11:37→22:36)
--- NOTE | 2022-10-17 23:41 | NOTE.SOAP ---
Soap Note Note for Day of Date of Exam: 10/17/22 Subjective Data Subjective Data: Patient awake with no complaints . A& O x 3. Eating well. Family notes he is weaker and not receiving appropriate physical therapy. Objective Data Temperature: 98 F Pulse Rate: 84 Respiratory Rate: 18 Blood Pressure: 155/68 O2 Sat by Pulse Oximetry: 97 Objective Data: Lungs clear. CXR clear. Cultures are pending . Wound of the mid line wound much smaller than last I saw being 5 x 3 x 2 cm with intact fascia. No hernia Small amount of exudate of this wound . WBC=6.0 Assessment Assessment: Failure to thrive. Probably due to his age and overall health. Plan Plan: Continue present care. See if a different SNF is available.
[2022-10-18] MEDS: LR 1,000 ML IV 1,000 ML IV SCH ×2 (15:42→21:25)
[2022-10-18 16:02] LABS: BASOPHILS % (AUTO) 0.4 % (0.2-1.0); EOSINOPHILS # (AUTO) 0.3 x10^3/uL (0.0-0.2); EOSINOPHILS % (AUTO) 5.4 % (0.9-2.9); HEMATOCRIT 25.7 % (42.0-54.0); HEMOGLOBIN 8.8 g/dL (13.5-18.0); LYMPHOCYTES # (AUTO) 1.4 X10^3/uL (1.3-2.9); MEAN CORPUSCULAR HEMOGLOBIN 28.7 pg (27.0-34.0); MEAN CORPUSCULAR HGB CONC 34.3 g/dL (33.0-35.0); MEAN CORPUSCULAR VOLUME 83.9 fL (80.0-100.0); MEAN PLATELET VOLUME 6.9 fL (7.4-11.0); MONOCYTES # (AUTO) 0.3 x10^3/uL (0.3-0.8); MONOCYTES % (AUTO) 4.5 % (0.0-13.0); NEUTROPHILS # (AUTO) 4.4 x10^3/uL (2.2-4.8); NEUTROPHILS % (AUTO) 68.7 % (42.0-75.0); PLATELET COUNT 344 X10^3/uL (150.0-450.0); RED BLOOD COUNT 3.07 X10^6/uL (4.7-6.0); RED CELL DISTRIBUTION WIDTH 16.4 % (11.6-16.5); WHITE BLOOD COUNT 6.4 X10^3/uL (3.6-10.0)
[2022-10-18 16:14] LABS: ALANINE AMINOTRANSFERASE 11 Units/L (12-78); ALBUMIN 1.7 g/dL (3.4-5.0); ALKALINE PHOSPHATASE 77 Units/L (46-116); ASPARTATE AMINO TRANSFERASE 23 Units/L (15-37); BLOOD UREA NITROGEN 10 mg/dL (7-18); CALCIUM 7.6 mg/dL (8.5-10.1); CARBON DIOXIDE 24.6 mmol/L (21-32); CHLORIDE 103 mmol/L (98-107); COR CA(FOR HYPOALB) 9.4 mg/dL (8.5-10.1); CREATININE 1.59 mg/dL (0.70-1.30); GLUCOSE 99 mg/dL (65-99); POTASSIUM 3.2 mmol/L (3.5-5.1); SODIUM 137 mmol/L (136-145); eGFR NON BLACK RACES 44 (>60)
[2022-10-18] MEDS: K-DUR TAB 20 MEQ PO PRN (17:40)
[2022-10-18] MEDS: MAGNESIUM SULFATE 1 GRAM/100 mL PREMIX 1 G/100 ML BAG IV PRN ×2 (17:41→21:25)
--- NOTE | 2022-10-18 23:46 | NOTE.SOAP ---
Soap Note Note for Day of Date of Exam: 10/18/22 Subjective Data Subjective Data: patient stable, alert and oriented ,weak Objective Data Temperature: 97.5 F Pulse Rate: 102 Respiratory Rate: 18 Blood Pressure: 176/78 O2 Sat by Pulse Oximetry: 97 Objective Data: Benign abdomen , healing wound , facsia intact of abdomen Assessment Assessment: failure to thrive Plan Plan: return to SNF tomorrow.
[2022-10-19] MEDS: LR 1,000 ML IV 1,000 ML IV SCH ×3 (05:27→20:02)
[2022-10-19] MEDS: MAGNESIUM SULFATE 1 GRAM/100 mL PREMIX 1 G/100 ML BAG IV PRN ×2 (07:31→08:40)
[2022-10-19] MEDS: PERCOCET TAB 5/325 MG PO PRN (08:47)
[2022-10-19] MEDS: K-DUR TAB 20 MEQ PO PRN ×3 (11:50→17:25)
--- NOTE | 2022-10-19 21:47 | NOTE.SOAP ---
Soap Note Note for Day of Date of Exam: 10/19/22 Subjective Data Subjective Data: Patient stable and doing well with no evidence of sepsis . Objective Data Temperature: 98.6 F Pulse Rate: 87 Respiratory Rate: 18 Blood Pressure: 147/67 O2 Sat by Pulse Oximetry: 100 Objective Data: No change in exam. .Wound of abdomen is being packed daily. Assessment Assessment: Failure to thrive Plan Plan: Were looking at transfer to a different SNF but no approval as yet. Continue present care.
[2022-10-20] MEDS: PERCOCET TAB 5/325 MG PO PRN (00:15)
[2022-10-20] MEDS: LR 1,000 ML IV 1,000 ML IV SCH ×3 (06:24→14:50)
[2022-10-20] MEDS: XANAX PO PRN (12:52)
[2022-10-20] MEDS: BENADRYL INJ 50 MG VIAL IVP PRN (12:53)
[2022-10-20] MEDS: CRESTOR TAB 10 MG PO SCH (20:29)
[2022-10-20] MEDS ORDERED: CRESTOR TAB 10 MG PO SCH (21:00)
--- NOTE | 2022-10-20 23:45 | NOTE.SOAP ---
Soap Note Note for Day of Date of Exam: 10/20/22 Subjective Data Subjective Data: Continues to be alert and oriented . Appropriate. Objective Data Temperature: 98.2 F Pulse Rate: 99 Respiratory Rate: 20 Blood Pressure: 152/66 O2 Sat by Pulse Oximetry: 100 Objective Data: Wound abdomen unchanged. Assessment Assessment: Failure to thrive, improved Plan Plan: await SNF placement
[2022-10-21] MEDS: LR 1,000 ML IV 1,000 ML IV SCH ×4 (00:10→22:20)
[2022-10-21] MEDS: SYNTHROID 50 mcg TAB PO SCH (05:55)
[2022-10-21] MEDS: BENADRYL INJ 50 MG VIAL IVP PRN (06:37)
[2022-10-21] MEDS: TOPROL XL PO SCH (10:24)
[2022-10-21] MEDS: ASPIRIN 81 MG CHEWTAB PO SCH (10:24)
[2022-10-21] MEDS: VITAMIN D3 25 mcg (1,000 UNITS) PO SCH (10:25)
[2022-10-21] MEDS: COZAAR PO SCH (10:25)
[2022-10-21] MEDS: PEPCID TAB 40 MG PO SCH (10:25)
--- NOTE | 2022-10-21 17:59 | NOTE.SOAP ---
Soap Note Note for Day of Date of Exam: 10/21/22 Subjective Data Subjective Data: Continues to improve, alert and oriented Objective Data Temperature: 98.8 F Pulse Rate: 84 Respiratory Rate: 18 Blood Pressure: 136/65 O2 Sat by Pulse Oximetry: 100 Objective Data: Wound improving , less drainage , colostomy looks good Assessment Assessment: Failure to thrive , improved Plan Plan: SNF placement tomorrow
[2022-10-21] MEDS: CRESTOR TAB 10 MG PO SCH (20:22)
[2022-10-21] MEDS: XANAX PO PRN (20:22)
[2022-10-22] MEDS: SYNTHROID 50 mcg TAB PO SCH (05:50)
[2022-10-22] MEDS: LR 1,000 ML IV 1,000 ML IV SCH ×2 (05:50→20:04)
[2022-10-22] MEDS: VITAMIN D3 25 mcg (1,000 UNITS) PO SCH (09:17)
[2022-10-22] MEDS: TOPROL XL PO SCH (09:17)
[2022-10-22] MEDS: ASPIRIN 81 MG CHEWTAB PO SCH (09:17)
[2022-10-22] MEDS: COZAAR PO SCH (09:17)
[2022-10-22] MEDS: PEPCID TAB 40 MG PO SCH (09:17)
[2022-10-22] MEDS: PERCOCET TAB 5/325 MG PO PRN (12:49)
[2022-10-22] MEDS: CRESTOR TAB 10 MG PO SCH (20:22)
--- NOTE | 2022-10-22 23:51 | NOTE.SOAP ---
Soap Note Note for Day of Date of Exam: 10/22/22 Subjective Data Subjective Data: Continues to improve Objective Data Temperature: 98.2 F Pulse Rate: 83 Respiratory Rate: 16 Blood Pressure: 111/52 O2 Sat by Pulse Oximetry: 98 Objective Data: Eating well, conversing better . Wound of abdomen is closing Assessment Assessment: Failure to thrive , improving Plan Plan: await SNF placement.
[2022-10-23] MEDS: LR 1,000 ML IV 1,000 ML IV SCH ×4 (03:31→21:04)
[2022-10-23] MEDS: SYNTHROID 50 mcg TAB PO SCH (05:35)
[2022-10-23] MEDS: COZAAR PO SCH (08:57)
[2022-10-23] MEDS: ASPIRIN 81 MG CHEWTAB PO SCH (08:57)
[2022-10-23] MEDS: TOPROL XL PO SCH (08:57)
[2022-10-23] MEDS: PEPCID TAB 40 MG PO SCH (08:57)
[2022-10-23] MEDS: VITAMIN D3 25 mcg (1,000 UNITS) PO SCH (08:57)
[2022-10-23 09:10] VITALS: BMI 18.8
[2022-10-23] MEDS: PERCOCET TAB 5/325 MG PO PRN (17:54)
[2022-10-23] MEDS: CRESTOR TAB 10 MG PO SCH (20:25)
[2022-10-23] MEDS: XANAX PO PRN (20:26)
--- NOTE | 2022-10-23 22:18 | NOTE.SOAP ---
Soap Note Note for Day of Date of Exam: 10/23/22 Subjective Data Subjective Data: Continues to improve. Objective Data Temperature: 98.9 F Pulse Rate: 79 Respiratory Rate: 18 Blood Pressure: 136/60 O2 Sat by Pulse Oximetry: 100 Objective Data: Wound improving . getting stronger. Assessment Assessment: Failure to thrive. Improving Plan Plan: For SNF tomorrow.
[2022-10-24] MEDS: LR 1,000 ML IV 1,000 ML IV SCH ×3 (02:20→23:00)
[2022-10-24] MEDS: SYNTHROID 50 mcg TAB PO SCH (05:41)
[2022-10-24] MEDS: TOPROL XL PO SCH (10:00)
[2022-10-24] MEDS: COZAAR PO SCH (10:00)
[2022-10-24] MEDS: ASPIRIN 81 MG CHEWTAB PO SCH (10:00)
[2022-10-24] MEDS: PEPCID TAB 40 MG PO SCH (10:00)
[2022-10-24] MEDS: VITAMIN D3 25 mcg (1,000 UNITS) PO SCH (10:00)
[2022-10-24] MEDS: XANAX PO PRN (20:31)
[2022-10-24] MEDS: CRESTOR TAB 10 MG PO SCH (20:31)
--- NOTE | 2022-10-24 23:55 | NOTE.SOAP ---
Soap Note Note for Day of Date of Exam: 10/24/22 Subjective Data Subjective Data: Patient continues to improve. Finally approved for SNF to be transferred tomorrow. Objective Data Temperature: 98.8 F Pulse Rate: 85 Respiratory Rate: 16 Blood Pressure: 140/63 O2 Sat by Pulse Oximetry: 99 Objective Data: Wound of abdomen 4x4x1.5 cm and fascia intact. Assessment Assessment: Continue wound dressings . Failure wilfrido thrive improved Plan Plan: To SNF tomorrow. Continue daily dressing changes.
[2022-10-25] MEDS: LR 1,000 ML IV 1,000 ML IV SCH ×2 (03:07→13:11)
[2022-10-25] MEDS: SYNTHROID 50 mcg TAB PO SCH (05:39)
[2022-10-25] MEDS: ASPIRIN 81 MG CHEWTAB PO SCH (09:28)
[2022-10-25] MEDS: COZAAR PO SCH (09:28)
[2022-10-25] MEDS: VITAMIN D3 25 mcg (1,000 UNITS) PO SCH (09:28)
[2022-10-25] MEDS: TOPROL XL PO SCH (09:28)
[2022-10-25] MEDS: PEPCID TAB 40 MG PO SCH (09:28)
--- NOTE | 2022-10-25 10:35 | W.DIS.FURT ---
Summary of Discharge Discharge Summary of Date Date of Exam: 10/25/22 Admission Date Date of Admission: 10/16/22 Admission Diagnosis Hospital Course: This patietn is a 86 year old male who had surgery two to three weeks prior to this admission with obstructed left colon secondary to a colon cancer with perforation of his cecum requiring resection of the cecum and reanastomosis to the ileum and left cara-colectomy and end colostomy .The patient was admitted for failure to thrive as he was not participating in physical therapy. During this hospitalization nothing really significant has occurred. The abdominal wound somewhat smaller still measuring approximately 5by 4 by 1.5 cm. The fascia is intact . He is to be discharged today to [facility] and follow up in one week. He will continue as usual activity and usual medications He has an appointment to see oncology but has not completed that as of yet. He will f/u with me in 2 weeks. Vital Signs: Vital Signs (72 hours) 10/22/22 23:51 10/23/22 22:18 10/24/22 23:54 Temperature 98.2 F 98.9 F 98.8 F Pulse Rate 83 79 85 Pulse Rate [Left] Respiratory Rate 16 18 16 Blood Pressure 111/52 136/60 140/63 Blood Pressure [Left Arm] Blood Pressure [Right Arm] O2 Sat by Pulse Oximetry 98 100 99 Oxygen Delivery Method 10/22/22 12:49 10/22/22 12:00 10/22/22 16:00 Temperature 97.8 F 97.9 F Pulse Rate Pulse Rate [Left] 80 81 Respiratory Rate 22 22 18 Blood Pressure Blood Pressure [Left Arm] 143/63 148/67 Blood Pressure [Right Arm] O2 Sat by Pulse Oximetry 100 100 Oxygen Delivery Method Room Air Room Air 10/22/22 13:49 10/22/22 20:00 10/22/22 19:00 Temperature 98.2 F Pulse Rate Pulse Rate [Left] 83 Respiratory Rate 22 16 Blood Pressure Blood Pressure [Left Arm] 111/52 Blood Pressure [Right Arm] O2 Sat by Pulse Oximetry 98 Oxygen Delivery Method Room Air Room Air 10/22/22 23:58 10/23/22 04:00 10/23/22 08:00 Temperature 98.7 F 98.5 F 97.8 F Pulse Rate Pulse Rate [Left] 71 78 78 Respiratory Rate 18 18 18 Blood Pressure Blood Pressure [Left Arm] 120/56 114/64 117/61 Blood Pressure [Right Arm] O2 Sat by Pulse Oximetry 100 98 99 Oxygen Delivery Method Room Air Room Air Room Air 10/23/22 07:00 10/23/22 12:00 10/23/22 17:54 Temperature 98.2 F Pulse Rate Pulse Rate [Left] 79 Respiratory Rate 18 18 Blood Pressure Blood Pressure [Left Arm] Blood Pressure [Right Arm] 138/66 O2 Sat by Pulse Oximetry 100 Oxygen Delivery Method Room Air Room Air 10/23/22 16:00 10/23/22 18:41 10/23/22 18:54 Temperature 97.9 F Pulse Rate Pulse Rate [Left] 86 Respiratory Rate 18 18 Blood Pressure Blood Pressure [Left Arm] Blood Pressure [Right Arm] 165/72 O2 Sat by Pulse Oximetry 96 Oxygen Delivery Method Room Air Room Air 10/23/22 20:00 10/24/22 00:00 10/24/22 04:00 Temperature 98.9 F 99.3 F 98.2 F Pulse Rate Pulse Rate [Left] 79 75 76 Respiratory Rate 18 20 20 Blood Pressure Blood Pressure [Left Arm] 108/55 160/69 Blood Pressure [Right Arm] 136/60 O2 Sat by Pulse Oximetry 100 98 100 Oxygen Delivery Method Room Air Room Air Room Air 10/24/22 07:00 10/24/22 08:00 10/24/22 12:00 Temperature 98.5 F 98 F Pulse Rate Pulse Rate [Left] 74 74 Respiratory Rate 22 20 Blood Pressure Blood Pressure [Left Arm] 104/54 148/63 Blood Pressure [Right Arm] O2 Sat by Pulse Oximetry 97 100 Oxygen Delivery Method Room Air Room Air Room Air 10/24/22 16:00 10/24/22 19:00 10/24/22 20:00 Temperature 98.8 F 98.8 F Pulse Rate Pulse Rate [Left] 82 85 Respiratory Rate 20 16 Blood Pressure Blood Pressure [Left Arm] 121/56 140/63 Blood Pressure [Right Arm] O2 Sat by Pulse Oximetry 98 99 Oxygen Delivery Method Room Air Room Air Room Air 10/24/22 23:54 10/25/22 03:52 10/25/22 07:16 Temperature 98.4 F 98.5 F Pulse Rate Pulse Rate [Left] 81 74 Respiratory Rate 16 16 Blood Pressure Blood Pressure [Left Arm] 149/67 139/65 Blood Pressure [Right Arm] O2 Sat by Pulse Oximetry 98 98 Oxygen Delivery Method Room Air Room Air Room Air 10/25/22 08:00 Temperature 98.6 F Pulse Rate Pulse Rate [Left] 88 Respiratory Rate 20 Blood Pressure Blood Pressure [Left Arm] 149/67 Blood Pressure [Right Arm] O2 Sat by Pulse Oximetry 100 Oxygen Delivery Method Room Air Labs: Laboratory Last Values WBC 6.4 X10^3/uL (3.6-10.0) 10/18/22 15: RBC 3.07 X10^6/uL (4.7-6.0) L 10/18/22 15: Hgb 8.8 g/dL (13.5-18.0) L 10/18/22 15: Hct 25.7 % (42.0-54.0) L 10/18/22 15: MCV 83.9 fL (80.0-100.0) 10/18/22 15: MCH 28.7 pg (27.0-34.0) 10/18/22 15: MCHC 34.3 g/dL (33.0-35.0) 10/18/22 15: RDW 16.4 % (11.6-16.5) 10/18/22 15: Plt Count 344 X10^3/uL (150.0-450.0) 10/18/22 15: MPV 6.9 fL (7.4-11.0) L 10/18/22 15: Neut % (Auto) 68.7 % (42.0-75.0) 10/18/22: Lymph % (Auto) 21.0 % (21.0-51.0) 10/18/22:28 Porter % (Auto) 4.5 % (0.0-13.0) 10/18/22: Eos % (Auto) 5.4 % (0.9-2.9) H 10/18/22: Baso % (Auto) 0.4 % (0.2-1.0) 10/18/22: Neut # (Auto) 4.4 x10^3/uL (2.2-4.8) 10/18/22 15:28 Lymph # (Auto) 1.4 X10^3/uL (1.3-2.9) 10/18/22 15:28 Porter # (Auto) 0.3 x10^3/uL (0.3-0.8) 10/18/22 15:28 Eos # (Auto) 0.3 x10^3/uL (0.0-0.2) H 10/18/22 15:28 Baso # (Auto) 0.0 X10^3/uL (0.0-0.1) 10/18/22 15:28 Absolute Nucleated RBC 0.0 /100WBC 10/18/22 15:28 Sodium 137 mmol/L (136-145) 10/18/22 15:28 Corrected Sodium TNP 10/18/22 15:28 Potassium 3.8 mmol/L (3.5-5.1) 10/19/22 16:57 Chloride 103 mmol/L (98-107) 10/18/22 15:28 Carbon Dioxide 24.6 mmol/L (21-32) 10/18/22 15:28 BUN 10 mg/dL (7-18) 10/18/22 15:28 Creatinine 1.59 mg/dL (0.70-1.30) H 10/18/22 15:28 Est GFR (MDRD) Af Amer 53 (>60) L 10/18/22 15:28 Est GFR (MDRD) Non-Af 44 (>60) L 10/18/22 15:28 Glucose 99 mg/dL (65-99) 10/18/22 15:28 Calcium 7.6 mg/dL (8.5-10.1) L 10/18/22 15:28 Corrected Calcium 9.4 mg/dL (8.5-10.1) 10/18/22 15:28 Magnesium 2.0 mg/dL (2.0-2.9) 10/20/22 05:24 Total Bilirubin 0.20 mg/dL (0.2-1.0) 10/18/22 15:28 AST 23 Units/L (15-37) 10/18/22 15:28 ALT 11 Units/L (12-78) L 10/18/22 15:28 Alkaline Phosphatase 77 Units/L (46-116) 10/18/22 15:28 Total Protein 6.0 g/dL (6.4-8.2) L 10/18/22 15:28 Albumin 1.7 g/dL (3.4-5.0) L 10/18/22 15:28 Globulin 4.3 g/dL (2.5-4.5) 10/18/22 15:28 Albumin/Globulin Ratio 0.4 Ratio (1.1-2.1) L 10/18/22 15:28 Reason For Visit: FAILURE TO THRIVE Discharge Date Discharge Date: 10/25/22 Discharge Diagnosis All Active Problems (Updated 10/17/22 @ 08:05 by eJb Garza) Failure to thrive (Acute) Cancer of left colon (Acute) Bowel perforation (Acute) Colonic mass (Acute) Hypokalemia (Acute) COPD (chronic obstructive pulmonary disease) (Acute) Hypothyroidism (Acute) Hypertension (Acute) Hypotension (Acute) Altered mental status (Acute) Generalized weakness (Acute) Frequent falls (Acute) Dehydration (Acute) Hypokalemia (Acute) Anemia (Acute) Syncope (Acute) Generalized weakness (Acute) Plan of Treatment: Continue with present treatment and follow up plan. Pt is to keep follow up appointment as instructed and take medications as ordered. Discharge Medications Discharge Medications: nitroglycerin Allergy (Verified 10/10/22 13:46) Penicillins Allergy (Verified 10/10/22 13:46) propoxyphene [From Darvocet-N] Allergy (Verified 10/10/22 13:46) CONTINUE taking the following medications alprazolam 0.5 mg tablet 0.5 mg PO BID PRN Anxiety 10/17/22 [History] cholecalciferol (vitamin D3) 25 mcg (1,000 unit) tablet 25 mcg PO QDAY 10/17/22 [History] losartan 50 mg tablet 50 mg PO DAILY 10/17/22 [History] metoprolol succinate 50 mg tablet,extended release 24 hr 50 mg PO QDAY 10/17/22 [History] rosuvastatin 40 mg tablet 40 mg PO HS 10/17/22 [History] Discharge Plan Discharge Plan Hospital Course: This patietn is a 86 year old male who had surgery two to three weeks prior to this admission with obstructed left colon secondary to a colon cancer with perforation of his cecum requiring resection of the cecum and reanastomosis to the ileum and left cara-colectomy and end colostomy .The patient was admitted for failure to thrive as he was not participating in physical therapy. During this hospitalization nothing really significant has occurred. The abdominal wound somewhat smaller still measuring approximately 5by 4 by 1.5 cm. The fascia is intact . He is to be discharged today to [facility] facility and follow up in one week. He will continue as usual activity and usual medications He has an appointment to see oncology but has not completed that as of yet. He will f/u with me in 2 weeks. Patient Disposition: XF SNF Condition: Stable Health Concerns: Post Hospitalization: new medications and changes needed to prevent readmission or further decline. Pt educated and given instructions on all concerns. Care Plan Goals: Problem: Activity Intolerance Goal: Increased tolerance to activity Instructions: Follow provided instructions. Follow up with primary physician as directed. Contact primary care physician or report to the closest Emergency Room if condition worsens. Plan of Treatment: Continue with present treatment and follow up plan. Pt is to keep follow up appointment as instructed and take medications as ordered. Prescriptions: No Action famotidine 40 mg tablet 40 mg PO QDAY Rx Instructions: take one tablet daily aspirin 81 mg tablet,delayed release (DR/EC) 81 mg PO QDAY Rx Instructions: take one tablet daily levothyroxine 50 mcg tablet 50 mcg PO 0700 Rx Instructions: take one tablet daily oxycodone-acetaminophen [Percocet] 5-325 mg Tablet 1 tab PO Q6H MDD 4 PRN (Reason: Pain) Qty: 30 0RF losartan 50 mg Tablet 50 mg PO DAILY metoprolol succinate 50 mg tablet extended release 24 hr 50 mg PO QDAY alprazolam 0.5 mg tablet 0.5 mg PO BID PRN (Reason: Anxiety) rosuvastatin 40 mg tablet 40 mg PO HS cholecalciferol (vitamin D3) 25 mcg (1,000 unit) tablet 25 mcg PO QDAY Rx Instructions: take one tablet daily Orders to Discharge Patient Discharge Orders: Discharge (Routine); Ordered 10/25/22 Ordered By: Jeb Garza Follow ups/Referrals Follow ups/Referrals: Brady Medrano [Primary Care Provider] - Jeb Garza [STAFF PHYSICIAN] -
[2022-10-25 13:09] VITALS: BP 136/66
== END 2022-10-25 13:45 ==
LOC: INTOOBSV 17:33 → MED/SURG 17:33
PROVIDERS: ADMIT Surgery; ATTEND Surgery

== ENCOUNTER 2024-07-21 08:21 | Observation (INO) ==
[2024-07-21] MEDS: NOZIN NASAL SANITIZER TP ONE (08:35)
[2024-07-21] MEDS: LR 1,000 ML IV 1,000 ML IV ONE (08:36)
[2024-07-21 09:59] VITALS: BMI 21.7
[2024-07-21] MEDS: FENTANYL VIAL INJ 100 mcg ONE (10:19)
[2024-07-21] MEDS: VERSED ONE (10:19)
[2024-07-21] MEDS: DIPRIVAN VIAL 20 ML ONE (10:25)
[2024-07-21] MEDS: BRIDION ONE (10:25)
[2024-07-21] MEDS: ZEMURON 100 MG VIAL ONE (10:26)
[2024-07-21] MEDS: PEPCID 20 MG VIAL ONE (10:26)
[2024-07-21] MEDS: ZOFRAN INJ 4 MG VIAL ONE (10:26)
[2024-07-21] MEDS: LR 1,000 ML IV 1,500 ML IV PRN (10:30)
[2024-07-21] MEDS: ZOFRAN INJ 4 MG VIAL IVP PRN (10:43)
[2024-07-21] MEDS ORDERED: NS IRRIGATION* 500 ML IR ONE (10:43)
[2024-07-21] MEDS ORDERED: STERILE WATER IRRIGATION IR ONE (10:43)
[2024-07-21] MEDS: DECADRON INJ ONE ×2 (10:46→11:21)
[2024-07-21] MEDS: PEPCID 20 MG VIAL IVP PRN (10:46)
[2024-07-21] MEDS ORDERED: DILAUDID INJ IVP PRN (10:52)
[2024-07-21] MEDS ORDERED: ZOFRAN INJ 4 MG VIAL IVP PRN (10:52)
[2024-07-21] MEDS ORDERED: BENADRYL INJ 50 MG VIAL IVP PRN (10:52)
[2024-07-21] MEDS ORDERED: ULTANE GAS IN ONE (10:55)
[2024-07-21] MEDS: CLEOCIN 600 MG IV PREMIX 600 MG/50 ML BAG IV PRN (10:55)
[2024-07-21] MEDS ORDERED: XYLOCAINE 2 % (PLAIN) ONE (10:55)
[2024-07-21] MEDS ORDERED: KETAMINE HCL ONE (10:55)
[2024-07-21] MEDS: BETADINE SOLN ONE ×2 (10:55→14:16)
[2024-07-21] MEDS: CLEOCIN 600 MG IV PREMIX 600 MG/50 ML BAG IV ONE (11:01)
[2024-07-21] MEDS: DECADRON INJ IVP PRN (11:14)
[2024-07-21] MEDS: EPHEDRINE SULFATE INJ IVP PRN (11:23)
[2024-07-21] MEDS: NEO-SYNEPHRINE INJ ONE (11:23)
[2024-07-21] MEDS: NEO-SYNEPHRINE INJ IVP PRN (11:25)
[2024-07-21] MEDS: DIPRIVAN VIAL 200 ML IVP PRN (11:34)
[2024-07-21] MEDS: FENTANYL VIAL INJ 100 mcg IVP PRN (11:36)
[2024-07-21] MEDS ORDERED: XYLOCAINE 2 % (PLAIN) PRN (11:38)
[2024-07-21] MEDS: VERSED IVP PRN (11:39)
[2024-07-21] MEDS: KETAMINE HCL IV PRN (11:43)
[2024-07-21] MEDS: DILAUDID INJ ONE (13:26)
[2024-07-21] MEDS: ZEMURON 100 MG VIAL IVP PRN (13:35)
[2024-07-21] MEDS: DILAUDID INJ IVP PRN (13:57)
[2024-07-21] MEDS: BRIDION IVP PRN (14:13)
[2024-07-21] MEDS: BACTROBAN TOPICAL OINT ONE (14:17)
--- NOTE | 2024-07-21 14:49 | OR.IMMED ---
IMMEDIATE POST-OP NOTE Immediate Post-Op Note Date of surgery/procedure: 07/21/24 Pre-Op Diagnosis: hx of obstructing left colon cancer with cecal perforation, for inspection of abdomen and takedown of colostomy Post-Op Diagnosis: colsotomy takedown performed , no obvious metastatic disease Procedure: explratory laparoscopy, lysis of adhesions ,laparoscopic takedown of colostomy with reanastomosis Description of Procedure: dictated Surgeon/Security Patrol Driver: Greg Findings: no evidence of metastatic disease , resection done emergently 10/07 and he went to SNF, with great recovery, Had 2 positive nodes but oncology did not give him chemotherapy. CEA NORMAL. PET / CT suggested on 7 mm area in pelvis , not seen at my current explortion. he wanted colostomy takedown. Estimated Blood Loss: < 50 cc Complications: none Progress Notes: to flooe, sips of clear liquids , await return of bowel function.
[2024-07-21] MEDS: LR 1,000 ML IV 1,000 ML IV SCH (15:34)
[2024-07-21] MEDS: REMERON PO SCH (21:33)
[2024-07-21] MEDS: PERCOCET TAB 5/325 MG PO PRN (21:39)
[2024-07-22] MEDS: SYNTHROID 50 mcg TAB PO SCH (05:43)
[2024-07-22 06:28] LABS: BASOPHILS % (AUTO) 0.2 % (0.2-1.0); HEMOGLOBIN 11.9 g/dL (13.5-18.0); LYMPHOCYTES # (AUTO) 0.7 X10^3/uL (1.3-2.9); LYMPHOCYTES % (AUTO) 5.9 % (21.0-51.0); MEAN CORPUSCULAR HEMOGLOBIN 31.6 pg (27.0-34.0); MEAN CORPUSCULAR HGB CONC 34.1 g/dL (33.0-35.0); MEAN CORPUSCULAR VOLUME 92.5 fL (80.0-100.0); MEAN PLATELET VOLUME 7.4 fL (7.4-11.0); MONOCYTES # (AUTO) 0.6 x10^3/uL (0.3-0.8); MONOCYTES % (AUTO) 4.6 % (0.0-13.0); NEUTROPHILS # (AUTO) 10.9 x10^3/uL (2.2-4.8); NEUTROPHILS % (AUTO) 89.3 % (42.0-75.0); PLATELET COUNT 206 X10^3/uL (150.0-450.0); RED BLOOD COUNT 3.78 X10^6/uL (4.7-6.0); RED CELL DISTRIBUTION WIDTH 15.7 % (11.6-16.5); WHITE BLOOD COUNT 12.2 X10^3/uL (3.6-10.0)
[2024-07-22] MEDS: PROTONIX TAB 40 MG PO SCH (09:17)
[2024-07-22] MEDS: COZAAR PO SCH (09:18)
[2024-07-22] MEDS: TOPROL XL PO SCH (09:18)
[2024-07-22] MEDS: LOVENOX INJ 40 MG SYR SC SCH (09:22)
--- NOTE | 2024-07-22 20:23 | NOTE.SOAP ---
Soap Note Note for Day of Date of Exam: 07/22/24 Subjective Data Subjective Data: POD # ! after takedown of left colostomy. C/ O incisional tenderness. Taking sips of clear liquids with no vomiting. No flatus yet Objective Data Temperature: 98.4 F Pulse Rate: 88 Respiratory Rate: 19 Blood Pressure: 124/57 O2 Sat by Pulse Oximetry: 94 Objective Data: Mild distension of abdomen with only incisional tenderness. WBC= 12.2, Hgb=11.9 Assessment Assessment: POD # 1 after laparoscopic colostomy takedown Plan Plan: Continue IVFs and sips , will give dulclolax suppository, Labs in AM
[2024-07-22] MEDS: DULCOLAX SUPPOSITORY 10 MG RECTAL ONE (21:21)
--- NOTE | 2024-07-22 21:59 | DR.OPNOTE ---
OP NOTE Pre-Op Diagnosis: s/P sigmoid colon resection for cancer w end colostomy and Hernandez's pouch Post-Op Diagnosis: same Procedure Date Date Of Procedure: 07/21/24 Procedure: PROCEDURE: Laparoscopic reversal of left lower quadrant colostomy with lysis of adhesions and end to end anastomosis NARRATIVE: The patient was taken to the operative suite and placed in the supine position. General endotracheal anesthesia induced. The patient then placed in laparotomy position and the abdomen and perineum prepped and draped in sterile fashion. Time out for the procedure of obtained. 5 millimeter incision was made in the midline above the umbilicus and a 5 millimeter Optical trocar used to enter the abdominal cavity. This was done under the direct Vision. The abdomen insufflated to 15 mm of mercury with carbon dioxide and under direct Vision a 12 mm trocar placed in the left lower quadrant. A 5 mm trocar was placed in the midline below the umbilicus under direct Vision. Patient has significant adhesions of small bowel obscurinfg the pelvis. These were taken down sharply with laparoscopic Metzenbaum scissors. Once this was done I could identify the long segment Michael pouch as well as the left lower quadrant colostomy. At this point we took down the lateral attachments of the left colon to mobilize it to the splenic flexure to give it length to reach the pelvis. Once this was done we then performed an elliptical incision around the left lower quadrant colostomy . The colostomy had been closed at the beginning of the case with a running locking 2-0 silk suture. Dissection carried down through the subcutaneous tissue freeing the end of the colostomy from the fascia . The entire colotomy mobilized through the colostomy site and the end of the colon removed with the RAFA stapler . The staple line removed and a pursestring suture of 2-0 Prolene placed in the end of the colon . The colon had been sized to 25 mm with colonic dilators. Once this was done the anvil of the 25mm stapler placed through the pursestring suture into the lumen of the colon and the pursestring tied into position. The anvil of the stapler in the colon placed back in abdominal cavity. The peritoneum of the colostomy site closed with ru nning , locking 3-0 Vicryl suture to reestablish insuffflation. Once this was done we then dilated the Hernandez pouch with the dilator from the rectum . There was still significant old stool in the rectum. This was removed manually. Once this was done the 25 mm stapler adriana to end device placed through the rectum and the spike placed through the end of the colon snd then joined with the anvil and closed and fired after 30 seconds removing the stapler and the patient had 2 good Donuts of tissue consistent with a good anastomosis Rigid sigmoidoscopy carried out showing no obvious leak from the Hernandez pouch or anastomosis. The pelvis rrigated with saline and suctioned free. All trocars removed. The fascia of the left lower quadrant colostomy site closed with interrupted 0 Vicryl sutures . Subcutaneous tissue closed with interrupted 3-0 Vicyl sutes and the skin closed with skin mellissa . The other laparoscopic incisions closed with 3-0 Vicryl subcutaneous sutures and skin mellissa. Patient tolerated this well and was extubated and taken to PACU in good condition. Type of Anesthesia: General Anesthetic w/ETT Anesthesia Comment: patietn extubated at end of the case Findings: significant adhesions, no obvious metastatic coln disease Type of Fluids Used:: Lactated Ringers EBL: < 25 cc Complications:: none Needle/Sponge Count:: correct Disposition/Condition: Pt. tolerated procedure without difficulty. Extubated and taken to PACU in stable condition.
[2024-07-23 05:52] LABS: BASOPHILS % (AUTO) 0.4 % (0.2-1.0); EOSINOPHILS % (AUTO) 0.4 % (0.9-2.9); HEMATOCRIT 32.9 % (42.0-54.0); HEMOGLOBIN 11.3 g/dL (13.5-18.0); LYMPHOCYTES # (AUTO) 0.7 X10^3/uL (1.3-2.9); LYMPHOCYTES % (AUTO) 10.2 % (21.0-51.0); MEAN CORPUSCULAR HEMOGLOBIN 31.9 pg (27.0-34.0); MEAN CORPUSCULAR HGB CONC 34.3 g/dL (33.0-35.0); MEAN CORPUSCULAR VOLUME 93.1 fL (80.0-100.0); MEAN PLATELET VOLUME 7.4 fL (7.4-11.0); MONOCYTES # (AUTO) 0.4 x10^3/uL (0.3-0.8); MONOCYTES % (AUTO) 5.1 % (0.0-13.0); NEUTROPHILS # (AUTO) 6.1 x10^3/uL (2.2-4.8); NEUTROPHILS % (AUTO) 83.9 % (42.0-75.0); PLATELET COUNT 184 X10^3/uL (150.0-450.0); RED BLOOD COUNT 3.54 X10^6/uL (4.7-6.0); WHITE BLOOD COUNT 7.3 X10^3/uL (3.6-10.0)
[2024-07-23 06:01] LABS: BLOOD UREA NITROGEN 21 mg/dL (7-18); CALCIUM 7.7 mg/dL (8.5-10.1); CARBON DIOXIDE 25.2 mmol/L (21-32); CHLORIDE 105 mmol/L (98-107); CREATININE 1.75 mg/dL (0.70-1.30); GLUCOSE 84 mg/dL (65-99); POTASSIUM 4.2 mmol/L (3.5-5.1); SODIUM 137 mmol/L (136-145); eGFR NON BLACK RACES 39 (>60)
--- NOTE | 2024-07-23 09:11 | NOTE.SOAP ---
Soap Note Note for Day of Date of Exam: 07/23/24 Subjective Data Subjective Data: Post-operative day number 2 after takedown of left-sided colostomy and reanastomosis. Had small bloody bowel movement this morning Objective Data Temperature: 97.9 F Pulse Rate: 85 Respiratory Rate: 19 Blood Pressure: 129/60 O2 Sat by Pulse Oximetry: 94 Objective Data: Abdomen soft, Hgb=11.3,BUN =21, Cr=1.75, WBC=7.3 Assessment Assessment: s/p colostomy takewdown, performed laparoscopically, has return of bowel function , he is hungry. Plan Plan: regular diet, po Miralax
[2024-07-23] MEDS ORDERED: MIRALAX POWDER (1 DOSE 17 G) PO SCH (10:00)
[2024-07-24] MEDS: MIRALAX POWDER (1 DOSE 17 G) PO SCH (09:15)
--- NOTE | 2024-07-24 14:48 | NOTE.SOAP ---
Soap Note Note for Day of Date of Exam: 07/24/24 Subjective Data Subjective Data: POD # 3 after takedown of LLQ colostomy and reanastomosis , with poor appietite, poor ambulation and incisional tenderness. He has had multiple brown bowel movements. Objective Data Temperature: 99.7 F Pulse Rate: 94 Respiratory Rate: 19 Blood Pressure: 124/60 O2 Sat by Pulse Oximetry: 98 Objective Data: Tenderness around incision of old colostomy site. Assessment Assessment: s/p colostomy takedown with return of bowel movements but poor po intake of food. Is taking liquids by mouth . Plan Plan: Givens is out, Heparin lock IVFs. encourage ambulation . Will d/c home if eating better.
[2024-07-24] MEDS ORDERED: ZOFRAN TAB 4 MG SL PRN (17:46)
[2024-07-24] MEDS: ZOFRAN ODT ONE (17:55)
[2024-07-25 07:40] VITALS: RESP 18
[2024-07-25 11:30] VITALS: BP 134/63; PULSE 80; TEMP 98.2; O2SAT 95
--- NOTE | 2024-07-25 13:05 | W.DIS.FURT ---
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 Also at that time had perforation of cecum requiring resection and ileo-colic anastomosis. He was debilitated and sent to SNF. Now at home living independently and has requested takedown of colostomy , Initial path showed 2 positive nodes but he never received adjuvant chemotherapy. Current CEA is normal . PET-CT showed possible 7 mm area in pelvis, indeterminate . On 07/21/2024 he underwent laparoscopic reversal of colostomy. Now eating on his usual schedule and having soft bowel movements. No obvious metastatic disease at time of laproscopy. Will be discharged home on his usual medications plus Percocet for pain, daily Metamucil . He has some redness around the mellissa , early infection but most likely reaction to the mellissa Will also add Clindamycin 150 mg po TID . F/U this coming Saturday Vital Signs: Vital Signs (72 hours) 07/22/24 20:22 07/24/24 14:47 07/23/24 09:11 Temperature 98.4 F 99.7 F H 97.9 F Pulse Rate 88 94 H 85 Pulse Rate [Brachial] Respiratory Rate 19 19 19 Blood Pressure 124/57 124/60 129/60 Blood Pressure [Left Arm] Blood Pressure [Right Arm] O2 Sat by Pulse Oximetry 94 L 98 94 L Oxygen Delivery Method Oxygen Flow Rate FIO2% 07/22/24 16:00 07/22/24 19:00 07/22/24 19:48 Temperature 98.7 F 98.4 F Pulse Rate Pulse Rate [Brachial] 84 88 Respiratory Rate 20 19 Blood Pressure Blood Pressure [Left Arm] 142/66 124/57 Blood Pressure [Right Arm] O2 Sat by Pulse Oximetry 97 94 L Oxygen Delivery Method Room Air Room Air Room Air Oxygen Flow Rate FIO2% 07/22/24 20:41 07/22/24 23:53 07/23/24 03:49 Temperature 98 F 97.9 F Pulse Rate Pulse Rate [Brachial] 98 H 85 Respiratory Rate 20 19 Blood Pressure Blood Pressure [Left Arm] 157/71 129/60 Blood Pressure [Right Arm] O2 Sat by Pulse Oximetry 95 94 L Oxygen Delivery Method Nasal Cannula Room Air Room Air Oxygen Flow Rate 2 FIO2% 28 07/23/24 03:50 07/23/24 08:38 07/23/24 08:44 Temperature 97.9 F Pulse Rate Pulse Rate [Brachial] 85 Respiratory Rate 19 19 Blood Pressure Blood Pressure [Left Arm] 129/60 Blood Pressure [Right Arm] O2 Sat by Pulse Oximetry 94 L Oxygen Delivery Method Room Air Room Air Oxygen Flow Rate 2 FIO2% 28 07/23/24 09:11 07/23/24 08:00 07/23/24 09:38 Temperature 99.3 F Pulse Rate Pulse Rate [Brachial] 88 Respiratory Rate 19 22 Blood Pressure Blood Pressure [Left Arm] 139/64 Blood Pressure [Right Arm] O2 Sat by Pulse Oximetry 95 Oxygen Delivery Method Room Air Room Air Oxygen Flow Rate FIO2% 07/23/24 12:00 07/23/24 16:00 07/23/24 19:01 Temperature 97.7 F 99.5 F Pulse Rate Pulse Rate [Brachial] 80 90 Respiratory Rate 18 20 20 Blood Pressure Blood Pressure [Left Arm] 119/57 Blood Pressure [Right Arm] 130/61 O2 Sat by Pulse Oximetry 96 95 Oxygen Delivery Method Room Air Room Air Oxygen Flow Rate FIO2% 07/23/24 19:48 07/23/24 19:00 07/23/24 20:20 Temperature 97.8 F Pulse Rate Pulse Rate [Brachial] 87 Respiratory Rate 19 Blood Pressure Blood Pressure [Left Arm] 142/65 Blood Pressure [Right Arm] O2 Sat by Pulse Oximetry 94 L Oxygen Delivery Method Room Air Room Air Nasal Cannula Oxygen Flow Rate 2 FIO2% 28 07/23/24 20:20 07/23/24 20:01 07/23/24 23:53 Temperature 98.0 F Pulse Rate 122 H Pulse Rate [Brachial] 80 Respiratory Rate 22 19 Blood Pressure Blood Pressure [Left Arm] 131/60 Blood Pressure [Right Arm] O2 Sat by Pulse Oximetry 96 97 Oxygen Delivery Method Room Air Oxygen Flow Rate FIO2% 07/24/24 00:12 07/24/24 04:00 07/24/24 09:05 Temperature 97.7 F Pulse Rate Pulse Rate [Brachial] 86 Respiratory Rate 19 Blood Pressure Blood Pressure [Left Arm] 159/70 Blood Pressure [Right Arm] O2 Sat by Pulse Oximetry 96 Oxygen Delivery Method Nasal Cannula Room Air Room Air Oxygen Flow Rate 2 FIO2% 28 21 07/24/24 09:24 07/24/24 08:00 07/24/24 12:00 Temperature 99.2 F 99.7 F H Pulse Rate Pulse Rate [Brachial] 89 94 H Respiratory Rate 19 19 Blood Pressure Blood Pressure [Left Arm] 140/62 124/60 Blood Pressure [Right Arm] O2 Sat by Pulse Oximetry 94 L 98 Oxygen Delivery Method Room Air Room Air Room Air Oxygen Flow Rate 2 FIO2% 28 07/24/24 16:10 07/24/24 19:19 07/25/24 00:00 Temperature 98.9 F 100.3 F H 99.1 F Pulse Rate Pulse Rate [Brachial] 94 H 91 H 84 Respiratory Rate 24 19 16 Blood Pressure Blood Pressure [Left Arm] 158/68 129/62 154/68 Blood Pressure [Right Arm] O2 Sat by Pulse Oximetry 95 96 95 Oxygen Delivery Method Room Air Room Air Room Air Oxygen Flow Rate FIO2% 07/24/24 19:00 07/25/24 04:00 07/24/24 21:22 Temperature 99.9 F H Pulse Rate Pulse Rate [Brachial] 82 Respiratory Rate 20 Blood Pressure Blood Pressure [Left Arm] 113/53 Blood Pressure [Right Arm] O2 Sat by Pulse Oximetry 93 L Oxygen Delivery Method Room Air Room Air Room Air Oxygen Flow Rate 2 FIO2% 28 07/25/24 07:39 07/25/24 08:55 07/25/24 09:10 Temperature 99.2 F Pulse Rate Pulse Rate [Brachial] 82 Respiratory Rate 18 18 Blood Pressure Blood Pressure [Left Arm] 111/53 Blood Pressure [Right Arm] O2 Sat by Pulse Oximetry 97 Oxygen Delivery Method Room Air Room Air Oxygen Flow Rate 2 FIO2% 28 07/25/24 09:13 07/25/24 10:10 07/25/24 11:29 Temperature 98.2 F Pulse Rate Pulse Rate [Brachial] 80 Respiratory Rate 18 18 Blood Pressure Blood Pressure [Left Arm] 134/63 Blood Pressure [Right Arm] O2 Sat by Pulse Oximetry 95 Oxygen Delivery Method Room Air Room Air Oxygen Flow Rate FIO2% 21 Labs: Laboratory Last Values WBC 7.3 X10^3/uL (3.6-10.0) 07/23/24 05:14 RBC 3.54 X10^6/uL (4.7-6.0) L 07/23/24 05:14 Hgb 11.3 g/dL (13.5-18.0) L 07/23/24 05:14 Hct 32.9 % (42.0-54.0) L 07/23/24 05:14 MCV 93.1 fL (80.0-100.0) 07/23/24 05:14 MCH 31.9 pg (27.0-34.0) 07/23/24 05:14 MCHC 34.3 g/dL (33.0-35.0) 07/23/24 05:14 RDW 16.0 % (11.6-16.5) 07/23/24 05:14 Plt Count 184 X10^3/uL (150.0-450.0) 07/23/24 05:14 MPV 7.4 fL (7.4-11.0) 07/23/24 05:14 Neut % (Auto) 83.9 % (42.0-75.0) H 07/23/24 05:14 Lymph % (Auto) 10.2 % (21.0-51.0) L 07/23/24 05:14 Garfield % (Auto) 5.1 % (0.0-13.0) 07/23/24 05:14 Eos % (Auto) 0.4 % (0.9-2.9) L 07/23/24 05:14 Baso % (Auto) 0.4 % (0.2-1.0) 07/23/24 05:14 Neut # (Auto) 6.1 x10^3/uL (2.2-4.8) H 07/23/24 05:14 Lymph # (Auto) 0.7 X10^3/uL (1.3-2.9) L 07/23/24 05:14 Garfield # (Auto) 0.4 x10^3/uL (0.3-0.8) 07/23/24 05:14 Eos # (Auto) 0.0 x10^3/uL (0.0-0.2) 07/23/24 05:14 Baso # (Auto) 0.0 X10^3/uL (0.0-0.1) 07/23/24 05:14 Absolute Nucleated RBC 0.0 /100WBC 07/23/24 05:14 Sodium 137 mmol/L (136-145) 07/23/24 05:14 Corrected Sodium TNP 07/23/24 05:14 Potassium 4.2 mmol/L (3.5-5.1) 07/23/24 05:14 Chloride 105 mmol/L (98-107) 07/23/24 05:14 Carbon Dioxide 25.2 mmol/L (21-32) 07/23/24 05:14 BUN 21 mg/dL (7-18) H 07/23/24 05:14 Creatinine 1.75 mg/dL (0.70-1.30) H 07/23/24 05:14 Est GFR (MDRD) Af Amer 48 (>60) L 07/23/24 05:14 Est GFR (MDRD) Non-Af 39 (>60) L 07/23/24 05:14 Glucose 84 mg/dL (65-99) 07/23/24 05:14 Calcium 7.7 mg/dL (8.5-10.1) L 07/23/24 05:14 Reason For Visit: S/P COLOSTOMY REVERSAL Discharge Date Discharge Date: 07/25/24 Discharge Diagnosis All Active Problems (Updated 01/27/24 @ 14:21 by Annemarie Hoover) Contusion of elbow, right (Acute) Contusion of head (Acute) Frequent falls (Acute) Adult failure to thrive (Acute) GERD (gastroesophageal reflux disease) (Chronic) CAD (coronary artery disease) (Chronic) Hyperlipidemia (Chronic) Pneumonia (Acute) Shortness of breath (Acute) Colostomy complication, unspecified (Acute) Constipation (Acute) Contusion of head (Acute) Cervical strain, acute (Acute) Failure to thrive (Acute) Cancer of left colon (Acute) Bowel perforation (Acute) Colonic mass (Acute) Hypokalemia (Acute) COPD (chronic obstructive pulmonary disease) (Acute) Hypothyroidism (Chronic) Hypertension (Chronic) Hypotension (Acute) Altered mental status (Acute) Generalized weakness (Acute) Frequent falls (Acute) Dehydration (Acute) Hypokalemia (Acute) Anemia (Acute) Syncope (Acute) Generalized weakness (Acute) Plan of Treatment: Continue with present treatment and follow up plan. Pt is to keep follow up appointment as instructed and take medications as ordered. Discharge Medications Discharge Medications: acetaminophen [From Tylenol] Allergy (Verified 07/21/24 08:53) nitroglycerin Allergy (Verified 03/04/24 10:37) Penicillins Allergy (Verified 03/04/24 10:37) propoxyphene [From Darvocet-N] Allergy (Verified 03/04/24 10:37) New Prescriptions clindamycin HCl 150 mg capsule 150 mg PO TID #30 caps 07/25/24 [Rx] oxycodone-acetaminophen 5 mg-325 mg tablet 1 tab PO Q4H PRN 07/25/24 [Rx] Metamucil, 1 tablespoon daily Discharge Disposition Assessment: see hospital course. 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 Also at that time had perforation of cecum requiring resection and ileo-colic anastomosis. He was debilitated and sent to SNF. Now at home living independently and has requested takedown of colostomy , Initial path showed 2 positive nodes but he never received adjuvant chemotherapy. Current CEA is normal . PET-CT showed possible 7 mm area in pelvis, indeterminate . On 07/21/2024 he underwent laparoscopic reversal of colostomy. Now eating on his usual schedule and having soft bowel movements. No obvious metastatic disease at time of laproscopy. Will be discharged home on his usual medications plus Percocet for pain, daily Metamucil . He has some redness around the mellissa , early infection but most likely reaction to the mellissa Will also add Clindamycin 150 mg po TID . F/U this coming Saturday Patient Disposition: HOME, SELF-CARE Condition: Stable Health Concerns: Post Hospitalization: new medications and changes needed to prevent readmission or further decline. Pt educated and given instructions on all concerns. Care Plan Goals: Problem: Pain/Alteration in Comfort Goal: Improve/ Resolve Pain; Achieve Pain Tolerance Instructions: Take pain medications as prescribed. Contact your primary care provider if your pain is unrelieved or worsens. Follow up with primary care provider as directed. Plan of Treatment: Continue with present treatment and follow up plan. Pt is to keep follow up appointment as instructed and take medications as ordered. Assessment: see hospital course. Prescriptions: New clindamycin HCl 150 mg Capsule 150 mg PO TID Qty: 30 0RF oxycodone-acetaminophen 5-325 mg Tablet 1 tab PO Q4H PRN0RF oxycodone-acetaminophen [Percocet] 5-325 mg tablet 1 tab PO Q6H MDD 4 PRNQty: 20 0RF Metamucil 3.4 gram/5.4 gram powder 1 tbsp PO QDAY Qty: 660 0RF Rx Instructions: mix into at least 8 oz of water or juice before administering Continued famotidine 40 mg tablet 40 mg PO HS Rx Instructions: take one tablet daily levothyroxine 50 mcg tablet 50 mcg PO 0700 Rx Instructions: take one tablet daily losartan 50 mg Tablet 50 mg PO DAILY metoprolol succinate 50 mg tablet extended release 24 hr 50 mg PO QDAY alprazolam 0.5 mg tablet 0.5 mg PO BID PRN (Reason: Anxiety) atorvastatin 80 mg Tablet 80 mg PO DAILY mirtazapine 15 mg Tablet 15 mg PO HS hydrocodone-acetaminophen 5-325 mg tablet 1 tab PO Q12H PRN aspirin 81 mg tablet,delayed release (DR/EC) 81 mg PO QDAY cyproheptadine 4 mg tablet 4 mg PO BID meclizine 25 mg tablet 25 mg PO Q12H PRN ergocalciferol (vitamin D2) 1,250 mcg (50,000 unit) capsule 1,250 mcg PO QWEEK docusate sodium [Colace] 100 mg capsule 100 mg PO BID MDD 2 Qty: 30 0RF Orders to Discharge Patient Discharge Orders: Discharge (Routine); Ordered 07/25/24 Ordered By: Jeb Garza Follow ups/Referrals Follow ups/Referrals: Jeb Garza [STAFF PHYSICIAN] - (call on Saturday to follow up on Saturday) Instructions Instructions: Weakness, [id number], Constipation, Adult, [id number], Colostomy Reversal Surgery, Care After, How to Prevent Constipation After Surgery Stand Alone Forms: Excuse From Work or School, Find Help Web Site, Post Hospital Follow Up Care
== END 2024-07-25 12:15 | disposition home or self-care (01) ==
LOC: SURG1 08:21 → INTOOBSV 14:40 → MED/SURG 14:40
PROVIDERS: ADMIT Surgery; ATTEND Surgery